=== PATIENT | male | born 1960 | race Caucasian/White ===

== ENCOUNTER → 2023-06-06 07:59 | Outpatient (REF) | payer BC, SELFPAY | LOC: HWRCS 07:59 | PROVIDERS: ATTENDING PHYSICIAN Family Medicine | DX: R01.1 Cardiac murmur, unspecified (principal) | CPT/HCPCS: 93306 ==

== ENCOUNTER 2023-06-18 05:51 | Day surgery (SDC) | payer BC, SELFPAY ==
[2023-06-18] VITALS (9 sets, daily range): BP systolic 104–156; BP diastolic 48–80; BMI 49.2
[2023-06-18 06:32] LABS: Glucose - Point of Care 133 mg/dl (70-99)
[2023-06-18] MEDS: NSS 440 ML IV (06:32)
[2023-06-18] MEDS: LOW STRENGTH ASPIRIN 81 MG PO (06:33)
[2023-06-18 06:35] LABS: Hematocrit 42.9 % (39.0-52.0); Hemoglobin 14.6 g/dL (13.0-18.0); Mean Corpuscular Hgb 31.4 pg (27.0-31.0); Mean Corpuscular Volume 92.3 fL (80.0-94.0); Mean Platelet Volume 9.7 fL (7.4-10.4); Platelet Count 227 10^3/uL (130-400); Red Blood Cell Count 4.65 10^6/uL (4.70-6.10); Red Cell Dist. Width 12.9 % (11.5-14.5); White Blood Cell Count 7.7 10^3/uL (4.8-10.8)
[2023-06-18 06:52] LABS: Blood Urea Nitrogen 12 mg/dl (9-20); Calcium 9.2 mg/dl (8.4-10.2); Glucose 139 mg/dl (70-99); Sodium 139 mmol/L (135-145)
[2023-06-18 07:02] LABS: Carbon Dioxide 25 mmol/L (22-30); Chloride 104 mmol/L (98-107); Estimated Creatinine Clearance > 125 ml/min; eGFR > 60.00
[2023-06-18] MEDS: NSS 1000 IV (09:36)
[2023-06-18 09:38] LABS: Glucose - Point of Care 161 mg/dl (70-99)
--- NOTE | 2023-06-18 10:05 | ITS.CL.CATH ---
Access Director - Catheterization
Cardiac Catheterization
Procedure Report:
LEFT HEART CATHETERIZATION
Date of Procedure: June 18, 2023
Referring: Dr. Micheala Abreu
PROCEDURES:
1. Right heart catheterization
2. Coronary angiography
INDICATION: Severe aortic stenosis with mean aortic valve gradient of 59 mmHg. He still goes to the gym and is active at home. He states since he has learned about the echocardiogram results that
ACCESS: Right radial artery, 6 [place] sheath in right brachial vein, 5 Indonesian sheath
HEMODYNAMICS : (mmHg)
RA (m) : 22
RV (s/d,m) : 53/16, 23
PA (s/d, m) : 46/25, 35
PCWP (m) : 32
AO (s/d) : 117/75, 95
Cardiac Output : 7.6 L/min and Cardiac Index : 3.0 L/min/m-2
Systemic vascular resistance: 9.6 Wood units or 768 [id number]-wtu-zu(-5)
Pulmonary vascular resistance: 0.4 Wood units or 32 tnxfm-lpm-gc(-5)
CORONARY FINDINGS
DOMINANCE: Right
LEFT MAIN: Normal
LEFT ANTERIOR DESCENDING: The LAD arises normally from the left main and runs in the anterior interventricular groove. The LAD wraps completely around the apex supplying a portion of the inferior wall. The LAD has diffuse minor luminal
irregularities without focal high-grade obstructive stenosis
RAMUS: Small caliber with minor irregularities
CIRCUMFLEX: The circumflex is a large-caliber nondominant vessel that supplies 2 sizable obtuse marginal branches. Minor irregularities are noted
RIGHT CORONARY ARTERY: The LAD has a high anterior origin from the aorta and is found to be a large-caliber dominant vessel with diffuse noncritical luminal irregularities over its course
RADIATION SUMMARY: Fluoro Time (min): 11.1, Dose (mGy): 1188, DAP (Gy.cm2) : 100
Closure Device: TR band
CONCLUSIONS
1. Severe aortic stenosis
2. Noncritical coronary disease
3. Mildly elevated right and left ventricular filling pressures
RECOMMENDATIONS
1. Patient will be discussed at an upcoming valve clinic meeting
Copy to: Dr. Michaela Abreu
--- NOTE | 2023-06-18 12:16 | CONSULT.STRU ---
Addendum entered and electronically signed by MELIDA Gonzalez 07/06/23 07:00:
Reviewed patient with the heart team in the [facility]. Dr. Stewart saw patient in consult 07/04, discussed surgical AVR including mechanical valve requiring lifelong management with warfarin. The patient is thinking about options including mechanical valve,
biological AVR, and TAVR. The team recommends biological valve for lifelong managment including valve in valve. Dr. Stewart will call and discuss with patient today.
Original Note:
Consultation
-
Date/Time Consultation Requested: 06/18/2023 1030
Date/Time Consultation Performed: 06/18/2023 1130
Requesting Provider: Dr. Ronald Broussard
Performing Provider: MELIDA Kim
Reason for Consultation: Aortic stenosis
Patient History
Physicians
Family Physician: Cielo Thomas
Outpatient Bed Placement Coordinator: Michaela Abreu
Primary Bed Placement Coordinator: Michaela Abreu
History of Present Illness
Patient is a very pleasant 63yo male with severe aortic stenosis. His echocardiogram on 06/06/2023 was notable for EF: 60-65%, AV PG/M/59, Peak aortic velocity 4.96m/s. No AI. He has noted some mild ESPINAL but still continues to exercise daily and
'adjusts his breathing'. He also has noted increased fatigue. Denies chest pain, palpitations, orthopnea, PND. He does have sleep apnea and is compliant with his CPAP. Reviewed the pathophysiology of aortic stenosis and the treatment options of both
TAVR and SAVR. At the age of 63yo life time planning for potential of a second valve procedure was explained. Mr. Saldivar states he is not opposed to SAVR and will follow the recommendations of the Heart Team. He is aware his case will be discussed at
the Heart Team Meeting on Sunday and he will receive a call with recommendations. Having a CT TAVR scan to assess access, valve size and coronary heights will help in surgical decision making so patient will proceed with follow up BMP on Sunday and
CT TAVR on Sunday, 06/24. Provided with contact information. Allowed for and answered questions.
Past Medical History
Past Medical History: ESPINAL, HTN, Hypercholesterolemia, NIDDM, HODAN (CPAP compliant), Valvular Disease and Other (Glaucoma, Vitamin D Deficiency)
Past Surgical History
Past Surgical History: Abdominal (Hernia Repair), Orthopedic (back injections), Tonsilectomy and Other (carpel tunnel release bilaterally)
Family History
Mother: at Age
Father: at Age (CAD, DM, Valve Disease)
Social History
Alcohol: Occasional
Drug: None
Tobacco: Non-Smoker
Personal:
Living: With Spouse
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
Allergies
Allergy/AdvReac Type Severity Reaction Status Date / Time
house dust Allergy runny nose Verified 06/18/23 06:13
pollen extracts Allergy runny nose Verified 06/18/23 06:13
Home Medications
Medication Instructions Recorded Confirmed Type
metformin 1,000 mg tablet 1,000 mg PO BID 05/23/13 06/18/23 History
subcutaneous insulin pump (Insulin 05/23/13 05/23/13 History
Pump [id number])
aspirin 81 mg capsule 81 mg PO DAILY 06/18/23 06/18/23 History
cetirizine 10 mg tablet (Zyrtec) 10 mg PO DAILY 06/18/23 06/18/23 History
cholecalciferol (vitamin D3) 125 125 mcg PO DAILY 06/18/23 06/18/23 History
mcg (5,000 unit) tablet (Vitamin
D3)
lisinopril 20 1 tab PO DAILY 06/18/23 06/18/23 History
mg-hydrochlorothiazide 12.5 mg
tablet
naproxen sodium 220 mg tablet 440 mg PO BID PRN pain 06/18/23 06/18/23 History
(Aleve)
netarsudil 0.02 %-latanoprost 1 drp ophthalmic (eye) QPM 06/18/23 06/18/23 History
0.005 % eye drops (Rocklatan)
omega 0-ioh-iew-fish oil 1,200 mg 2 cap PO QPM 06/18/23 06/18/23 History
(144 mg-216 mg) capsule (Fish Oil)
semaglutide 1 mg/dose (4 mg/3 mL) 1 mg SC QWEEK 06/18/23 06/18/23 History
subcutaneous pen injector (Ozempic)
simvastatin 20 mg tablet 20 mg PO DAILY 06/18/23 06/18/23 History
vitamin B complex 1 tab PO DAILY 06/18/23 06/18/23 History
STS%
STS %: 1.29%
Review of Systems
-
History Source: Patient
General: Reports Fatigue
HEENT: Reports No Symptoms
Respiratory: Reports ESPINAL and Other (Sleep apnea- wears CPAP)
Cardiac: Reports No Symptoms
Abdomen/GI: Reports No Symptoms
: Reports No Symptoms
Musculoskeletal: Reports No Symptoms
Skin: Reports No Symptoms
Neurological: Reports No Symptoms
Vascular: Reports No Symptoms
Physical Exam
Vital Signs
Temp 98.1 F 06/18/23 06:58
Temp route: Oral 06/18/23 06:58
Pulse 72 06/18/23 11:46
Resp Rate 28 06/18/23 11:46
Blood pressure 133/58 06/18/23 11:46
Blood pressure extremity used: Right upper arm 06/18/23 06:58
Position: Lying 06/18/23 06:58
MAP (cuff-Tata Monitor) 77 06/18/23 11:46
SaO2 95 06/18/23 11:46
Oxygen Mode of Delivery Room air 06/18/23 11:45
Can the patient verbally communicate their pain? Yes 06/18/23 11:45
Actual Weight 146.6 kg 06/18/23 06:11
Body Mass Index (BMI) 49.2 06/18/23 06:11
Labs
06/18/23 06:24
06/18/23 06:24
Diagnostic Studies
06/06/2023 Echocardiogram:
�CONCLUSIONS
�Normal left ventricular size and systolic function. Moderate concentric left
�ventricular hypertrophy.� LV ejection fraction is 60-65% by visual assessment.
�Normal regional wall motion. Diastolic function indeterminate.
�Normal right ventricular size and function.
�Calcified aortic valve with restricted leaflet excursion. Severe aortic
�stenosis with peak/mean gradients of 98/59 mmHg, respectively. The aortic valve
�by the Continuity equation is calculated between 0.9-1.0 cm sq, using a LVOT
�diameter of 2.2 cm. AV Dimensionless Index is 0.3. No aortic regurgitation is
�seen.
�Mild tricuspid regurgitation. Estimated pulmonary artery pressure of 37 mmHg
�assuming a right atrial pressure of 3 mmHg.
�No prior study available for comparison.
�As per [place] Act 112, known as Patient Test Result Information Act, a letter will
�be sent to the patient, which notifies to the patient that a significant
�abnormality may exist. A letter will be sent approximately 10 days after the
�echo report is finalized.
�
�Indications:
�Cardiac murmur, unspecified
�
�Rhythm: � � � � � � � � Sinus
�
�Portable Study: � � � � No
�
�Technical Quality:� � � TDS-Apicals
�
�Contrast: � � None
�
�BP:� � 140 � / � 70
�
�PROCEDURE
�A complete Transthoracic Echocardiogram was performed utilizing two-dimensional
�evaluation with color flow and spectral Doppler analysis.
�
�FINDINGS
�
�Left Ventricle
�Normal left ventricular size and systolic function. Moderate concentric left
�ventricular hypertrophy.� LV ejection fraction is 60-65% by visual assessment.
�Normal regional wall motion. Diastolic function indeterminate.
�
�Right Ventricle
�Normal right ventricular size and function.
�
�Left Atrium
�Indexed LA volume is within top normal range (15-34 mL/m2).
�
�Right Atrium
�Normal right atrial size.
�
�Mitral Valve
�Mitral valve opens normally. Thickened mitral valve leaflets. Trace mitral
�regurgitation.
�
�Aortic Valve
�Calcified aortic valve with restricted leaflet excursion. Severe aortic
�stenosis with peak/mean gradients of 98/59 mmHg, respectively. The aortic valve
�by the Continuity equation is calculated between 0.9-1.0 cm sq, using a LVOT
�diameter of 2.2 cm. AV Dimensionless Index is 0.3. No aortic regurgitation is
�seen.
�
�Tricuspid Valve
�Tricuspid valve opens normally. Mild tricuspid regurgitation. Estimated
�pulmonary artery pressure of 37 mmHg assuming a right atrial pressure of 3
�mmHg.
�
�Pulmonic Valve
�Not well visualized. No pulmonic regurgitation� is seen.
�
�Pericardium\\Pleura
�No pericardial or pleural effusions seen.
�
�Aorta
�Normal size aortic root and normal size aorta. The aortic arch is normal in
�caliber.
�
�Other Finding
�The IVC is of normal size and demonstrates normal respiratory variation.
�Interatrial septum is intact with no evidence of shunting by color flow
�Doppler.
�
�MEASUREMENTS� (Male / Female) Normal Values
�2D ECHO
�LV Diastolic Diameter PLAX� � � � 5.3 cm� � � � � � � � 4.2 - 5.9 / 3.9 - 5.3 cm
�LV Systolic Diameter PLAX � � � � 3.1 cm� � � � � � � �
�IVS Diastolic Thickness � � � � � 1.3 cm� � � � � � � � 0.6 - 1.0 / 0.6 - 0.9 cm
�LVPW Diastolic Thickness� � � � � 1.3 cm� � � � � � � � 0.6 - 1.0 / 0.6 - 0.9 cm
�LV Relative Wall Thickness� � � � 0.5 � � � � � � � � �
�LVOT Diameter � � � � � � � � � � 2.2 cm� � � � � � � �
�LV Ejection Fraction MOD BP � � � 63.1 %� � � � � � � � >= 55� %
�LV Stroke Volume MOD BP � � � � � 77.0 cm3� � � � � � �
�LV Cardiac Index MOD BP � � � � � 2195.8 cm3/min
�LV Stroke Volume MOD 4C � � � � � 70.0 cm3� � � � � � �
�LV Stroke Volume 4C AL� � � � � � 69.2 cm3� � � � � � �
�LV Stroke Volume MOD 2C � � � � � 71.0 cm3� � � � � � �
�LV Stroke Volume 2C AL� � � � � � 72.4 cm3� � � � � � �
�LA Area 4C View � � � � � � � � � 25.7 cm2� � � � � � � <= 20 cm2
�LA Length 4C� � � � � � � � � � � 6.3 cm� � � � � � � �
�LA Volume � � � � � � � � � � � � 85.0 cm3� � � � � � � 18 - 58 / 22 - 52 cm3
�LA Volume Index � � � � � � � � � 32.1 cm3/m2 � � � � � 16 - 34 cm3/m2
�Ascending Aorta Diameter� � � � � 3.4 cm� � � � � � � �
�Aortic Arch Diameter� � � � � � � 3.0 cm� � � � � � � �
�
�DOPPLER
�AV Peak Velocity� � � � � � � � � 433.0 cm/s� � � � � �
�AV Peak Gradient� � � � � � � � � 75.0 mmHg � � � � � �
�AV Mean Gradient� � � � � � � � � 43.0 mmHg � � � � � �
�AV Velocity Time Integral � � � � 88.4 cm � � � � � � �
�LVOT Peak Velocity� � � � � � � � 134.0 cm/s� � � � � �
�LVOT Peak Gradient� � � � � � � � 7.2 mmHg� � � � � � �
�LVOT Velocity Time Integral � � � 28.6 cm � � � � � � �
�LVOT Stroke Volume� � � � � � � � 108.7 cm3 � � � � � �
�LVOT Stroke Volume Index� � � � � 39.7 ml/m2� � � � � � empty
�LVOT Cardiac Index� � � � � � � � 3100.3 cm3/min\\m2 � �
�AV Area Cont Eq vti � � � � � � � 1.2 cm2 � � � � � � �
�AV Area Cont Eq pk� � � � � � � � 1.2 cm2 � � � � � � �
�Mitral E Point Velocity � � � � � 87.9 cm/s � � � � � �
�Mitral A Point Velocity � � � � � 120.0 cm/s� � � � � �
�Mitral E to A Ratio � � � � � � � 0.7 � � � � � � � � �
�LV E' Lateral Velocity� � � � � � 7.5 cm/s� � � � � � �
�Mitral E to LV E' Lateral Ratio � 11.7� � � � � � � � �
�LV E' Septal Velocity � � � � � � 7.9 cm/s� � � � � � �
�Mitral E to LV E' Septal Ratio� � 11.1� � � � � � � � �
�Pulmonary Vein S/D Ratio� � � � � 1.6 � � � � � � � � �
�TR Peak Velocity� � � � � � � � � 273.0 cm/s� � � � � �
�TR Peak Gradient� � � � � � � � � 29.8 mmHg � � � � � �
�PV Peak Velocity� � � � � � � � � 133.0 cm/s� � � � � �
�PV Peak Gradient� � � � � � � � � 7.1 mmHg� � � � � � �
�
�
�
�06/18/2023 Cardiac Catheterizations:
ACCESS: Right radial artery, 6 [place] sheath in right brachial vein, 5 [place] sheath
HEMODYNAMICS : (mmHg)
RA (m) : 22
RV (s/d,m) : 53/16, 23
PA (s/d, m) : 46/25, 35
PCWP (m) : 32
AO (s/d) : 117/75, 95
Cardiac Output : 7.6 L/min and Cardiac Index : 3.0 L/min/m-2
Systemic vascular resistance: 9.6 Wood units or 768 [id number]-htf-na(-5)
Pulmonary vascular resistance: 0.4 Wood units or 32 tjldk-vpi-us(-5)
CORONARY FINDINGS
DOMINANCE: Right
LEFT MAIN: Normal
LEFT ANTERIOR DESCENDING: The LAD arises normally from the left main and runs in the anterior interventricular groove.� The LAD wraps completely around the apex supplying a portion of the inferior wall.� The LAD has diffuse minor luminal
irregularities without focal high-grade obstructive stenosis
RAMUS: Small caliber with minor irregularities
CIRCUMFLEX: The circumflex is a large-caliber nondominant vessel that supplies 2 sizable obtuse marginal branches.� Minor irregularities are noted
RIGHT CORONARY ARTERY: The LAD has a high anterior origin from the aorta and is found to be a large-caliber dominant vessel with diffuse noncritical luminal irregularities over its course
RADIATION SUMMARY:� Fluoro Time (min): 11.1, Dose (mGy): 1188, DAP (Gy.cm2) : 100
Closure Device: TR band
CONCLUSIONS
1.� Severe aortic stenosis
2.� Noncritical coronary disease
3.� Mildly elevated right and left ventricular filling pressures
RECOMMENDATIONS
1.� Patient will be discussed at an upcoming valve clinic meeting
Exam
General: Well Developed, Well Nourished and No Apparent Distress
HEENT: Normocephalic
Neck: Trachea Midline
Respiratory: Clear
Cardiac: S1/S2, Regular Rhythm and Murmur (Grade III/)
GI: Soft, Non Tender and Normal Bowel Sounds
Rectal: Deferred by Provider
Skin: Warm and Dry
Neuro: AO x 3 and No Motor Deficits
Extremities: Pulses (+ 2DP/PT pulses)
Psych: Calm
Assessment / Plan
-
Severe symptomatic aortic stenosis:
- Follow up BMP on 06/22/2023
- Review case with Heart Team at [facility] meeting on 06/21
- Will need dental clearance prior to TAVR/SAVR
- CT TAVR 06/25/2023
- CT surgery consult with Dr. Stewart 07/05/2023
Data Reviewed
-
EKG: Report Reviewed by me (SR, no conduction issues)
Sales Enablement Analyst: Discussed with Physician
Echo: Report Reviewed by me
Labs: Labs Reviewed by me
Total Time Spent with Patient (in minutes): 40
== END 2023-06-18 12:10 | disposition home or self-care (01) ==
LOC: CATH 05:51
PROVIDERS: ATTENDING PHYSICIAN Internal Medicine Interventional Cardiology; FAMILY PHYSICIAN Family Medicine
DX: I35.0 Nonrheumatic aortic (valve) stenosis (principal); I25.10 Atherosclerotic heart disease of native coronary artery without angina pectoris; R06.09 Other forms of dyspnea; I10 Essential (primary) hypertension; E78.00 Pure hypercholesterolemia, unspecified; E11.9 Type 2 diabetes mellitus without complications; G47.33 Obstructive sleep apnea (adult) (pediatric)
CPT/HCPCS: 80048; 82962; 85027; 93456; C1769; C1894; Q9967

== ENCOUNTER → 2023-06-22 08:18 | Outpatient (REF) | payer BC, SELFPAY ==
[2023-06-22 09:41] LABS: Blood Urea Nitrogen 16 mg/dl (9-20); Calcium 9.9 mg/dl (8.4-10.2); Carbon Dioxide 28 mmol/L (22-30); Chloride 104 mmol/L (98-107); Glucose 158 mg/dl (70-99); Potassium 4.2 mmol/L (3.5-5.1); Sodium 137 mmol/L (135-145); eGFR > 60.00
== END ==
LOC: REG 08:18
PROVIDERS: ATTENDING PHYSICIAN Nurse Practitioner Adult Health
DX: I35.0 Nonrheumatic aortic (valve) stenosis (principal)
CPT/HCPCS: 36415; 80048

== ENCOUNTER → 2023-06-25 11:28 | Outpatient (REF) | payer BC, SELFPAY | LOC: RAD 11:28 | PROVIDERS: ATTENDING PHYSICIAN Nurse Practitioner Adult Health; FAMILY PHYSICIAN Family Medicine | DX: I35.0 Nonrheumatic aortic (valve) stenosis (principal) | CPT/HCPCS: 74174; 75572; Q9967 ==

== ENCOUNTER 2023-08-06 08:23 | Inpatient (IN) | payer BC, MEDICARE, SELFPAY ==
[2023-07-13 11:55] VITALS: BMI 48.9
[2023-07-13 12:46] LABS: % Basophils 0.5 % (0-2); % Eosinophils 1.5 % (0-6); % Immature Granulocytes 0.6 % (0-0.5); % Lymphocytes 28.2 % (20.5-51.1); % Monocytes 7.7 % (1.7-9.3); % Neutrophils 61.5 % (42.2-75.2); Absolute Eosinophils 0.1 10^3/uL (0-0.7); Absolute Lymphocytes 1.9 10^3/uL (1.2-3.4); Absolute Monocytes 0.5 10^3/uL (0.1-0.6); Absolute Neutrophils 4.1 10^3/uL (1.4-6.5); Hematocrit 42.5 % (39.0-52.0); Hemoglobin 14.1 g/dL (13.0-18.0); Mean Corp Hgb Conc. 33.2 g/dL (33.0-37.0); Mean Corpuscular Hgb 31.1 pg (27.0-31.0); Mean Corpuscular Volume 93.8 fL (80.0-94.0); Mean Platelet Volume 9.9 fL (7.4-10.4); Nucleated Red Blood Cells % 0 % (-); Platelet Count 208 10^3/uL (130-400); Red Blood Cell Count 4.53 10^6/uL (4.70-6.10); Red Cell Dist. Width 13.1 % (11.5-14.5); White Blood Cell Count 6.6 10^3/uL (4.8-10.8)
[2023-07-13 12:47] LABS: Urine Albumin Trace (Neg - Trace); Urine Bilirubin Negative (Negative); Urine Character Clear (Clear); Urine Color Yellow; Urine Glucose Trace (Negative); Urine Ketone Trace (Negative); Urine Leukocyte Negative (Negative); Urine Nitrite Negative (Negative); Urine Occult Blood Negative (Negative); Urine Urobilinogen Negative (Neg - 1+)
[2023-07-13 13:00] LABS: APTT 30.1 Sec (23.4-35.0); INR 1.04; PT 13.4 Sec (11.4-14.6)
[2023-07-13 13:09] LABS: ALT (SGPT) 34 U/L (0-50); AST (SGOT) 30 U/L (17-59); Albumin 4.3 g/dl (3.5-5.0); Alkaline Phosphatase 74 U/L (38-126); Blood Urea Nitrogen 15 mg/dl (9-20); Calcium 9.7 mg/dl (8.4-10.2); Carbon Dioxide 26 mmol/L (22-30); Chloride 104 mmol/L (98-107); Estimated Creatinine Clearance > 125 ml/min; Glucose 180 mg/dl (70-99); Potassium 4.3 mmol/L (3.5-5.1); Sodium 139 mmol/L (135-145); Total Bilirubin 0.5 mg/dl (0.2-1.3); Total Protein 7.1 g/dl (6.3-8.2); eGFR > 60.00
[2023-07-13 13:38] LABS: Glycohemoglobin (HgbA1c) 7.5 % (4.0-5.6)
--- NOTE | 2023-07-13 14:32 | CM ---
Met with Mr. Saldivar in [facility]'s. He states prior to admission he resides with his spouse in a two story home with two steps to enter. He states he has a full flight of steps to get to bedroom. He states he has a full bathroom on each level. He states
prior to admission he was independent with ambulation and adls. He states he has a CPAP Machine at home and no other DME. He states he has a prescription plan. The discharge plan is to return home with his spouse and a home visit by the
Cardiothoracic Transitional Care Nurse when medically stable.
We reviewed pre-op and post-op routines. We reviewed the shower instructions. He has the soap, instructions and the Cardiothoracic Thoracic Surgery Educational Booklet. We also reviewed restrictions including sternal precautions and driving
restrictions. We discussed a home visit by the Cardiothoracic Transitional Care Nurse. He is agreeable to a home visit. The plan is for AVR on Monday, July 31, 2023.
[2023-07-13 14:35] LABS: Direct Bilirubin 0.1 mg/dl (0.0-0.4)
[2023-08-06] VITALS (10 sets, daily range): BP systolic 98–168; BP diastolic 47–77; BMI 46.8
--- NOTE | 2023-08-06 09:21 | PTCARENOTE ---
Received pt into 2260, pt AAOX3 and resting comfortably in bed; pt confirmed 2 showers at home; pt clipped and prepped; pt NPO since 209908/05/2023; heart pillow and IS education provided; all medications reviewed with pt; all questions answered and
at bedside.
--- NOTE | 2023-08-06 09:31 | CM ---
Reviewed chart. Mr. Saldivar is in the operating room today. Prior to admission he resides with his spouse in a two story home with two steps to enter. He has a full flight of steps to get to bedroom. He has a full bathroom on each level. Prior to
admission he was independent with ambulation and adls. He has a CPAP Machine at home and no other DME. He has a prescription plan. Medical work-up in progress. The discharge plan is to return home with his spouse and a home visit by the
Cardiothoracic Transitional Care Nurse when medically stable.
--- NOTE | 2023-08-06 09:50 | PN.DE.MGMTRT ---
Insulin Management
- -
08/06/2023: Diabetes Management Consult
63 year old male admitted for elective AVR. PMH includes: T2DM, Routinely sees [facility]- sees Rishi, was last seen 2 weeks ago. Was Using Insulin pump T-Slim with CGM Dexcom G7, NovoLog insulin, Metformin 1000mg
BID, and Victoza that was recently switched to Ozempic 0.25mg weekly but had not started taking it yet. Pt seen in CVICU with - Lynette at bedside.
Pt is Awake, A/O x3, sitting up in chair, pleasant and able to discuss diabetes plan of care.
Pt reports that His insulin pump was discontinued upon admission this morning. Explained to pt policy and procedure for pts using insulin pumps at home when they get admitted to the hospital.
Pt was made aware that he will be managed on the glycemic protocol postoperatively x48 hrs and that his pump will be resumed when he is stable enough to manage it independently. Pt has brought all pump supplies and his pump is in his possession. All
questions were answered.
Diabetes History
- -
Type of Diabetes: 2 requiring insulin
Pre-Admission Diabetes Regimen
Lab Results
Hemoglobin A1c 7.5 % (4.0-5.6) H 07/13/23 12:07
Insulin Pump Settings
IP Diabetes Regimen
Patient Education
--- NOTE | 2023-08-06 11:54 | W.CVOR.SURPR ---
CVOR Surgeon Immed Pre Op
-
I have examined this patient prior to performance of the scheduled procedure.
The patient's condition is unchanged from the time of the dictated/written History and
Physical and the patient is able to undergo the scheduled procedure.
After much discussion, and also his own research, shared decision making is to pursue a mechanical prosthesis. For his age category, it is reasonable to use either a biological or mechanical valve, I think his choice is resonable giving him the best
EOA and longevity. He understands he will need lifelong coumadin therapy.
His CHADsVasc score is also 3, so I will plan to manage his left atrial appendage at time of surgery.
[2023-08-06] MEDS: PROTONIX 40 MG PO (12:14)
[2023-08-06] MEDS: MAGNESIUM OXIDE 500 MG PO (12:14)
[2023-08-06] MEDS: LOPRESSOR 25 MG PO (12:14)
[2023-08-06] MEDS: BACTROBAN 2% OINTMENT 1 APPLIC NASAL ×2 (12:15→20:31)
--- NOTE | 2023-08-06 12:23 | PTCARENOTE ---
Pt sent to CVOR in bed.
[2023-08-06 13:33] LABS: ACT+ - POC 101 Seconds (82-134)
[2023-08-06 13:35] LABS: Glucose - POC 192 mg/dl (65-99); HCO3 - POC 22 mmol/L (21-29); Hematocrit - POC 40 % PCV (42-52); Hemodilution- POC No; Hemoglobin Calculated - POC 13.6; Ionized Calcium - POC 1.19 mmol/L (1.12-1.27); O2 Saturation %Calculated-POC 98.4 5 (92-96); PCO2 - POC 42 mmHg (35-45); PO2 - POC 120 mmHg (80-100); Potassium - POC 4.1 mmol/L (3.6-5.0); Sodium - POC 140 mmol/L (135-145); pH - POC 7.33 (7.35-7.45)
[2023-08-06 14:06] LABS: Urine Albumin Negative (Neg - Trace); Urine Bilirubin Negative (Negative); Urine Character Clear (Clear); Urine Color Yellow; Urine Glucose Negative (Negative); Urine Ketone 3+ (Negative); Urine Leukocyte Negative (Negative); Urine Nitrite Negative (Negative); Urine Occult Blood Negative (Negative); Urine Urobilinogen Negative (Neg - 1+)
[2023-08-06 14:15] LABS: ACT+ - POC 546 Seconds (82-134)
[2023-08-06 14:34] LABS: ACT+ - POC 530 Seconds (82-134)
[2023-08-06 14:39] LABS: B.E. - POC -1.1 mmol/L; Glucose - POC 202 mg/dl (65-99); HCO3 - POC 24 mmol/L (21-29); Hematocrit - POC 31 % PCV (42-52); Hemodilution- POC Yes; Hemoglobin Calculated - POC 10.6; Ionized Calcium - POC 1.04 mmol/L (1.12-1.27); O2 Saturation %Calculated-POC 99.7 5 (92-96); PCO2 - POC 42 mmHg (35-45); PO2 - POC 201 mmHg (80-100); Potassium - POC 4.6 mmol/L (3.6-5.0); Sodium - POC 137 mmol/L (135-145); pH - POC 7.37 (7.35-7.45)
[2023-08-06 15:04] LABS: B.E. - POC -2.1 mmol/L; Glucose - POC 237 mg/dl (65-99); HCO3 - POC 24 mmol/L (21-29); Hematocrit - POC 38 % PCV (42-52); Hemodilution- POC Yes; Hemoglobin Calculated - POC 12.8; Ionized Calcium - POC 1.11 mmol/L (1.12-1.27); O2 Saturation %Calculated-POC 98.9 5 (92-96); PCO2 - POC 48 mmHg (35-45); PO2 - POC 142 mmHg (80-100); Potassium - POC 5.1 mmol/L (3.6-5.0); Sodium - POC 138 mmol/L (135-145); pH - POC 7.32 (7.35-7.45)
[2023-08-06 15:07] LABS: ACT+ - POC 486 Seconds (82-134)
[2023-08-06 15:43] LABS: ACT+ - POC 87 Seconds (82-134)
[2023-08-06 15:47] LABS: B.E. - POC -6.1 mmol/L; Glucose - POC 193 mg/dl (65-99); HCO3 - POC 20 mmol/L (21-29); Hematocrit - POC 35 % PCV (42-52); Hemodilution- POC Yes; Hemoglobin Calculated - POC 11.7; Ionized Calcium - POC 1.24 mmol/L (1.12-1.27); PCO2 - POC 42 mmHg (35-45); PO2 - POC 148 mmHg (80-100); Potassium - POC 4.3 mmol/L (3.6-5.0); Sodium - POC 140 mmol/L (135-145); pH - POC 7.29 (7.35-7.45)
--- NOTE | 2023-08-06 16:43 | CON.INTV ---
Consultation
Consultation Request
Date/Time Consultation Requested: 08/06/2023 - 1552
Date/Time Consultation Performed: 08/06/2023 - 1640
Requesting Provider: Mariann MONTEZ
Performing Provider: Reji Frausto MD
Reason for Consultation: s/p AVR
Medical History
-
Chief Complaint: Elective aortic valve replacement
History of Present Illness:
63-year-old male with a past medical history of sleep apnea on CPAP, allergic rhinitis, DM type II, hypertension and hyperlipidemia who presents for aortic valve placement. Patient has a history of severe aortic valve stenosis and is known to "Graciela"Pat with last office visit on 07/05/2023. Patient is active and performs ADLs with no difficulty. He underwent a left heart catheterization on 06/18/2023 showing mildly elevated filling pressures with a wedge of 32 mmHg. Prior transthoracic echo
performed in May 2023 yielded a peak/mean gradient of 98/59 mmHg, respectively. KATHERINE was calculated to be just around 1.04. LVEF was preserved at 65% with moderate concentric LVH. Discussion of TAVR versus SAVR took place and patient was
consented for both procedures. Patient now presents for surgical aortic valve replacement. Today he underwent standard sternotomy with surgical aortic valve replacement with FLACA ligation with a 35 mm clip. Patient underwent procedure with no
immediate complications and was transferred to the CVICU postoperatively for further care. Crabber service is now consulted for additional management/recommendations.
When I saw the patient he was in bed, in no acute distress, on mechanical ventilation on mode SIMV 16/600/100%/8, breathing at 18 breaths/min, PIP 28 cmH2O and VTe of 546 mL. BP via left radial A-line was 124/64, HR: 69, PAP: 45/28, SpO2 97%.
CO/CI: 4.66/1.86. He is on an insulin drip at 6 units/h, as well as Levophed at 2mcg/min and Precedex at 0.6mcg/kg/hr. He has mediastinal chest tubes x 2.
PMHx: Vitamin D deficiency, hyperlipidemia, DM type II, hypertension, allergic rhinitis, ED, sleep apnea on CPAP, carpal tunnel, glaucoma, heart murmur, and severe aortic valve stenosis
PSHx: Hernia repair, tonsillectomy, spinal surgery
Past Medical History
Past Medical History: Other (Above as per HPI)
Past Surgical History: Other (Above as per HPI)
Social History
Tobacco: Non-smoker
Alcohol: Occasional
Drug: None
Family History
Family History: Diabetes (Father) and Other (Father: Valvular heart disease; mother: Alzheimer's disease)
Allergies / Home Medications
Allergies
Allergy/AdvReac Type Severity Reaction Status Date / Time
house dust Allergy runny nose Verified 07/11/23 10:01
pollen extracts Allergy runny nose Verified 07/11/23 10:01
Home Medications
�Medication �Instructions �Recorded �Confirmed �Last Taken �Type
metformin 1,000 mg tablet 1,000 mg PO BID 05/23/13 08/06/23 08/05/23 17:00 History
subcutaneous insulin pump (Insulin 05/23/13 07/11/23 Unknown History
Pump [id number])
aspirin 81 mg capsule 81 mg PO DAILY 06/18/23 08/06/23 08/05/23 08:00 History
cetirizine 10 mg tablet (Zyrtec) 10 mg PO DAILY 06/18/23 08/06/23 08/05/23 08:00 History
cholecalciferol (vitamin D3) 125 125 mcg PO DAILY 06/18/23 08/06/23 08/03/23 08:00 History
mcg (5,000 unit) tablet (Vitamin
D3)
lisinopril 20 1 tab PO DAILY 06/18/23 08/06/23 08/03/23 08:00 History
mg-hydrochlorothiazide 12.5 mg
tablet
naproxen sodium 220 mg tablet 440 mg PO BID PRN pain 06/18/23 08/06/23 06/17/23 18:00 History
(Aleve)
netarsudil 0.02 %-latanoprost 1 drp BOTH EYES QPM 06/18/23 08/06/23 08/05/23 20:00 History
0.005 % eye drops (Rocklatan)
omega 1-fil-eov-fish oil 1,200 mg 2 cap PO BID 06/18/23 08/06/23 07/30/23 08:00 History
(144 mg-216 mg) capsule (Fish Oil)
semaglutide 1 mg/dose (4 mg/3 mL) 1 mg SC QWEEK 06/18/23 08/06/23 Unknown History
subcutaneous pen injector (Ozempic)
simvastatin 20 mg tablet 20 mg PO DAILY 06/18/23 08/06/23 07/30/23 08:00 History
vitamin B complex 1 tab PO DAILY 06/18/23 08/06/23 08/03/23 08:00 History
insulin aspart U-100 100 unit/mL 200 unit SC DIRECTED 07/11/23 08/06/23 Unknown History
subcutaneous cartridge
Review of Systems
-
Unable to Obtain full review of systems at this time due to: Patient Intubation
Vitals / Labs / Diagnostic Testing
Vital Signs
Temp Pulse Resp BP Pulse Ox
99.5 F 69 14 159/72 99
08/06/23 16:57 08/06/23 16:50 08/06/23 16:54 08/06/23 12:14 08/06/23 17:55
Lab Data
08/06/23 16:51
Laboratory Results
08/06/23 08/06/23
16:51 17:40
PT 16.2 H
INR 1.32
APTT 29.1
pH 7.30 L 7.33 L
pCO2 49 H 44
pO2 76 L 131 H
HCO3 24.1 23.2
O2 Delivery Level
Diagnostic Testing:
Physical Exam
-
HEENT: Normocephalic and Anicteric
Cardiovascular: S1/S2 and Peripheral Edema (negative)
Respiratory: Wheeze (n), Rales (n), Rhonchi (n) and Other (ETT in place; mechanical BS heard bilaterally)
GI: Soft, Non Distended and Non Tender
Neurology: Other (Unresponsive/sedated)
Skin: Warm and Dry
General: Respiratory Distress (n), Comfortable and Chills (n)
Assessment
-
Assessment: 63-year-old male with a past medical history of sleep apnea on CPAP, allergic rhinitis, DM type II, hypertension and hyperlipidemia who presents for aortic valve placement. Patient has a history of severe aortic valve stenosis and is
known to Dr. Stewart with last office visit on 07/05/2023. Patient is active and performs ADLs with no difficulty. He underwent a left heart catheterization on 06/18/2023 showing mildly elevated filling pressures with a wedge of 32 mmHg. Prior
transthoracic echo performed in May 2023 yielded a peak/mean gradient of 98/59 mmHg, respectively. KATHERINE was calculated to be just around 1.04. LVEF was preserved at 65% with moderate concentric LVH. Discussion of TAVR versus SAVR took place
and patient was consented for both procedures. Patient now presents for surgical aortic valve replacement. On 08/06/2023 he underwent standard sternotomy with surgical aortic valve replacement with FLACA ligation with a 35 mm clip. Patient underwent
procedure with no immediate complications and was transferred to the CVICU postoperatively for further care. Crabber service is now consulted for additional management/recommendations.
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
Impression:
#Severe aortic stenosis s/p surgical aortic valve replacement (POD #0)
#Anemia (mild)
#Hyperglycemia
#Morbid obesity
Plan:
Ventilator settings reviewed
FiO2 will be weaned
Maintain SpO2 >90-94%
Minute ventilation will be adjusted
Arterial blood gases will be monitored
Spontaneous breathing trial will be attempted with hopeful extubation after anesthesia/sedation wear off
prn nebulized bronchodilators
Pulmonary artery catheter parameters will be followed
Pressors/antihypertensive/inotropes/diuretics will be provided as needed
Maintain MAP>65
Monitor chest tube output (mediastinal chest tube X2)
Monitor hemoglobin
Monitor platelet count and coags
Transfuse blood product if needed
CT surgery managing chest tubes
Monitor blood sugar with goal BG 140-180mg/dL
Insulin drip per protocol
Replete electrolytes with K>4, Mg>2
Aspiration precautions
VAP prevention protocol
DVT prophylaxis
Early nutrition
Early mobilization
Critical care statement: A total of 44 minutes of critical care time was provided for this patient today. This includes management of ventilator, spontaneous breathing trial, arterial blood gases, pressors, of unstable vital signs, evaluation of the
patient at bedside, reviewing the patient's pertinent medical records including radiographs, microbiology, laboratory evaluations, and discussion with primary team and critical care nursing.
Data:
CXR 08-06-2023: Postoperative chest.
--- NOTE | 2023-08-06 16:51 | W.PN.CT.SURG ---
CT Surgery Operative Note
-
CARDIAC SURGERY OPERATIVE REPORT
Preoperative Diagnosis: Severe aortic valve stenosis with symptoms
Postoperative Diagnosis: Same
Procedure(s) Performed:
1. Standard sternotomy with aortic and right atrial cannulation
2. Surgical aortic valve replacement [25 mm mechanical prosthesis]
3. Left atrial appendage ligation with a 35 mm clip
4. Placement of temporary atrial ventricular pacing wires
5. Transesophageal echocardiography
6. Rigid sternal fixation
Date of Surgery: 08/06/2023
Comorbidities:
1. Severe aortic valve stenosis with symptoms
2. Functional bicuspid valve with diffuse left right cusp
3. Diabetes mellitus, type II
4. Hypertension
5. Morbidly obese with a BMI of greater than 45
6. HODAN
7. Hyperlipidemia
8. Glaucoma
Attending Surgeon: Charles Stewart MD, MS
Assistants: Charles Stokes PA-C (present and necessary to assistant account manager, retraction, suction, exposure, suture management, and wound closure under my direction)
Anesthesiology: Jose Rafael Moreira MD and Steven Oro CRNA
Scrub and Circulating RNs: Amanda Blankenship, KAROLINA, Romana Mullins RN
Boat Puller: Renato Osorio CCP
Anesthesia: GETA
EBL: per perfusion records
Products: None
CPB Time: 66 minutes
Aortic Cross Clamp Time: 50 minutes
Indication(s) for Procedures: This is a 63-year-old male with critical levels of aortic valve stenosis. His mean gradients were in the high 50s. Given his young age and critical levels of stenosis, surgical aortic valve intervention was discussed
with the patient. Through much deliberation and his own personal research and shared decision making, he opted for mechanical prosthesis which was reasonable.
Aortic Valve Description: Trileaflet valve with functional bicuspid fusion of the left right coronary cusp, heavily calcified into the annulus without extension down into the aorta mitral curtain. Left and right coronary ostia within normal
anatomic positions although the right was slightly displaced towards the right non commissure.
Findings: Left ventricular ejection fraction preoperatively was 65%. Following surgery he had no new regional wall motion abnormalities and EF was hyperdynamic at 70% with mild to moderate left ventricular hypertrophy. There was evidence of
diastolic dysfunction given the hypertrophic cardio myopathy. His aortic valve was heavily calcified mostly on the base of the leaflet extending down towards the annulus without extension onto the aorto mitral curtain. The valve was replaced with
a 25 mm mechanical prosthesis using a total of 15 nonpledgeted 2 Ethibond sutures secured into place with core knots. There was no paravalvular leak, there was inherent washing jets that is normal with this table prosthesis. Both mechanical
leaflets were moving normally as expected. He did not require any inotropic support and did not require any blood products. He was intermittent junctional and sinus bradycardia did require DDI pacing. Due to his size and diabetic status, plates
were also used to fixate his sternum.
Specimen(s): Aortic valve leaflets.
Prosthesis:
1. 25 mm ON-X [facility] AVR, SN [id number]
2. 35mm FLACA Clip
3. 3 x box plates with 12 x 16mm screws
Description of Procedure: The patient was taken to the operating room. Their identity and procedure to be performed were verified and they were positioned supine on the operating table. Induction via general anesthesia with endotracheal intubation
was performed and central venous access and arterial monitoring were inserted. A preoperative transesophageal echocardiogram was performed to assess cardiac function and valvular function. The patient was then prepped and draped from chin to feet in
a sterile fashion. A preoperative time-out was performed with all members of the team present. A midline chest incision was performed along with median sternotomy. The innominate vein was isolated. Full heparinization was given (a total of 60,000
units). We created a pericardial well. The aortic cannulation site was chosen where it was soft, pliable, and free of calcium. Cannulation was performed with an arterial cannula in the ascending aorta and a triple-stage venous cannula through the
right atrial appendage. The arterial cannula line had an appropriate bounce and correlating pressures with test dosing. Next, a root vent/antegrade cannula was inserted into the ascending aorta. The ACT was confirmed to be over 400 and retrograde
autologous priming was performed before commencing cardiopulmonary bypass. The pulmonary artery was away from the aorta to facilitate a clamp site and aortotomy. A left ventricular vent was placed at the right superior pulmonary vein and
secured. The aortic cross-clamp was placed after decreasing the flow on the bypass and mean arterial pressure. A total of 1.2L initial dose of antegrade Del-Nido cardioplegia solution was given and planned for re-dosing every 75 minutes as
necessary. There was rapid electro-mechanical arrest of the heart at 200 cc of cardioplegia. The left ventricle was observed for distention on echocardiogram and manual palpation. Cold slush was placed into a sponge and topically on the RV while we
systemically cooled to 34 degrees centigrade.
Carbon dioxide was used to flood the field. We manually identified the location of the right coronary take off. An aortotomy was made approximately 2cm above the sinotubular junction. The location of both left and right coronary vessels were
visualized in the root.The leaflets were excised and sent for pathological assessment. The annulus was debrided of any calcium being mindful of the annulus and membranous septum. The root and left ventricular outflow tract were thoroughly irrigated
to remove any debris. A total of 15 Non-pledgeted 2-0 ethibond inverted annular sutures were placed [id number] circumferentially. These were brought through the sewing cuff of the prosthetic valve which as then parachuted into place. The left and
right coronary ostia were visualized and were unobstructed by the valve. A Cor-Knot device was used to secure the annular sutures. The valve was inspected and was well seated. The leaflets were tested with a plastic poker found to be freely mobile.
The aortotomy was approximated with 4-0 prolene in two layers. De-airing maneuvers were performed and temporary bipolar ventricular pacing wires were placed on the base of the right ventricle along with atrial pacing wires at the SVC right atrial
junction. The patient was placed in a Trendelenburg position and flows on bypass were lowered. The aortic cross clamp was removed and flows were slowly brought back up. The aortotomy appeared hemostatic. Transesophageal echocardiography revealed no
paravalvular leak and appropriate prosthetic function. Once de-airing was satisfactory, the left ventricular and root vents were removed. After verifying acceptable parameters, we initiated weaning from cardiopulmonary bypass. Once we were off
cardiopulmonary bypass, the venous cannula was clamped and removed. A test dose of protamine was administered and the patient was monitored for any adverse reaction before resuming protamine. Once half of the protamine dose was delivered, pump
suckers were turned off and the systolic blood pressure was lowered for aortic decannulation. The aortic cannula was removed and pursestrings were tied down. All cannulation sites were oversewn with a 4-0 prolene. The aortotomy suture line was
inspected and hemostasis was confirmed. Mediastinal hemostasis was obtained. Two 24Fr Federico drains were placed within the pericardium. The sternum was approximated with 4 #7 single and 3 #8 double stainless steel wires. 3 box plates were selected
after clearing off the periosteal muscle and fascia. These were secured at the manubrium, sternal body and down towards the xiphoid with 12 x 16 mm screws. Fascia was approximated with #1 vicryl suture. The subcutaneous, dermis and epidermis were
closed in layers in a running fashion. The skin wound was cleansed and dressed.
All instrument, sponge, and needle counts were confirmed to be correct x 2 at the end of the operation. The patient was transferred to the cardiac intensive care unit in critical but stable condition.
I, Dr. Charles Stewart, was present, scrubbed for, and performed all critical elements of this procedure.
Charles Stewart MD, MS
Cardiothoracic Surgeon
[facility]
This operative dictation was created using the [employer] dictation system. Please excuse any grammatical, typographical, or 'sound alike' errors
[2023-08-06 16:56] LABS: Glucose - Point of Care 226 mg/dl (70-99)
--- NOTE | 2023-08-06 16:59 | PTCARENOTE ---
Received pt from [facility]; Pt intubated and sedated; NSR on monitor and VSS: Epicardial a/v wires set to DDI 50/11/12 and no pacing noted; RIJ Cordis, [place] floated to 45, Left A-line and PIV x1 all patent, all lines leveled and zeroed; Levo, Insulin and
Precedex infusing see flow sheet for details; lungs diminished; Vent Settings SIMV 600/14/100%/5/5; ET Tube size 8 and 23 @lip; CT x2 to -20 wall suction no air leak and no crepitus noted; hypoactive bowel sounds; Toney Catheter draining clear
yellow urine; palpable pulses throughout; no edema noted; surgical site C/D/I; see nursing documentation for further details.
CI 1.86
CO 4.66
SVT 858
Levo 2 mcg/min
Precedex 0.6 mcg/kg/hr
Insulin 6 units/hr
[2023-08-06 17:00] LABS: B.E. -2.7 mmol/L; HCO3 24.1 mmol/L (21-28); Ionized Calcium 1.27 mMOL/L (1.15-1.33); O2 Saturation % 95.9 % (94-98); PCO2 49 mmHg (35-48); PO2 76 mmHg (83-108); Potassium 4.6 mMOL/L (3.5-5.1); Sodium 137 mMOL/L (136-145)
[2023-08-06 17:01] LABS: Hematocrit 37.3 % (39.0-52.0); Hemoglobin 12.7 g/dL (13.0-18.0); Platelet Count 190 10^3/uL (130-400)
[2023-08-06 17:11] LABS: INR 1.32; PT 16.2 Sec (11.4-14.6)
[2023-08-06 17:12] LABS: APTT 29.1 Sec (23.4-35.0)
[2023-08-06 17:15] LABS: Blood Urea Nitrogen 16 mg/dl (9-20); Estimated Creatinine Clearance 95 ml/min; Glucose 233 mg/dl (70-99); Magnesium 2.8 mg/dl (1.6-2.3)
--- NOTE | 2023-08-06 17:16 | W.PN.UPDATE ---
Update Note
Progress Note Update
63-year-old male electively admitted on 08/06/2023 for aortic valve replacement due to severe aortic stenosis.
IV fluids: 1000
U.O.:� 180
UF:� 1800
Blood:� none
Wires:� 2 atrial/1 bipolar V-wire
Inotropes:�
Pressors:�
Sedatives:�
�
NEURO: sedated on XXX, pupils +Xmm B/L
RESP: #8OT @XXcm> 600/100%/14/5. Lungs clear B/L. 2 mediastinal (XXcc on arrival) and R/L pleural (XXcc on arrival) chest tubes to -20cm suction. Sanguineous drainage
CV: RRR +S1, S2, no S3, no�rub, no murmur. Dermabond to median sternotomy. RIJ w/[place] locked @ XXcm. PA XX; CVP XX; C.O XX/CI XX
ABD: round, soft, no BS
EXT: no edema, +2/4 DP pulses B/L, no femoral bruit, XXLE ALLISON wrap intact; XX radial A-line intact
: Toney with clear yellow urine
�
A/P: POD #0 s/p AVR #25mm On-X, FLACA #35mm clip. Rigid sternal fixation
CEASAR: EF�
- wean and extubate
- will need instruction regarding antibiotic prophylaxis for dental and invasive procedures
- will require anticoagulation with Coumadin long-term
�
# HODAN
- required GLIDESCOPE for intubation
- own CPAP @ 14cm H2O for nocturnal use
�
# T2DM (A1C 7.5)
- insulin infusion x 48h
- diabetes CHILD CARE COUNSELOR will guide resumption of own insulin pump
- on MFM, Ozempic, Lisinopril-HCTZ at home
# Morbid obesity (BMI 46.8)
- calorie, carb controlled diet
- resume Ozempic per diabetes CHILD CARE COUNSELOR guidance
�
# Hyperlipidemia
- resume�
[2023-08-06] MEDS: TYLENOL PO ×2 (17:19→21:56)
[2023-08-06] MEDS: ANCEF 10 IV ×2 (17:19)
[2023-08-06] MEDS: NSS 500 IV (17:19)
[2023-08-06] MEDS: NOVOLOG FLEXPEN SC ×2 (17:19)
[2023-08-06] MEDS: NEURONTIN PO ×2 (17:20→21:59)
[2023-08-06 17:54] LABS: B.E. -2.8 mmol/L; HCO3 23.2 mmol/L (21-28); O2 Saturation % 98.2 % (94-98); PCO2 44 mmHg (35-48); PO2 131 mmHg (83-108); pH 7.33 (7.35-7.45)
[2023-08-06 18:09] LABS: Glucose - Point of Care 258 mg/dl (70-99)
[2023-08-06] MEDS: VERSED 0.5 MG IV (18:25)
[2023-08-06 18:41] LABS: B.E. -3.5 mmol/L; HCO3 22.1 mmol/L (21-28); O2 Saturation % 98.1 % (94-98); PCO2 41 mmHg (35-48); PO2 122 mmHg (83-108); pH 7.34 (7.35-7.45)
[2023-08-06 19:01] LABS: Glucose - Point of Care 202 mg/dl (70-99)
[2023-08-06 19:23] LABS: B.E. -3.1 mmol/L; O2 Saturation % 97.4 % (94-98); PCO2 39 mmHg (35-48); PO2 93 mmHg (83-108); pH 7.36 (7.35-7.45)
[2023-08-06 19:46] LABS: Mixed Venous O2 Saturation 62.9 %
--- NOTE | 2023-08-06 19:50 | PTCARENOTE ---
Pt placed to CPAP wean by RT. Pt tolerating. VSS.
--- NOTE | 2023-08-06 20:00 | PTCARENOTE ---
Pt received from john RN. Walking rounds completed. Pt intubated and sedated. Precedex infusing per protocol. Pt awaking to voice, following commands appropriately, and DEUTSCH. 100% V-paced on the monitor. HR 70. Temporary epicardial A/V wires set
to VVI 70/9/0.8. +click. PA's 40s/20s. CVP 20. BP 110's/60s. Levo infusing per protocol. + pulses throughout. No edema. ETT #8 @23 cm on the right lip. Pt set to SIMV 600/18/40%/8/5. Lung sounds diminished. Mediastinal CTx2 to -20 suction, no
airleak/tidaling/crepitus noted at this time. POX 98%. Abdomen round. Hypoactive BS. Toney catheter CDI and draining clear/yellow urine. Right IJ cordis w/ swan CDI. Right hand PIV CDI. Left radial a-line CDI. All lines leveled, zeroed, and flushed.
All surgical sites stable. Glycemic protocol followed. See worklist for full nursing assessment, VS, and interventions.
[2023-08-06] MEDS: SODIUM BICARBONATE 50 MEQ IV (20:01)
[2023-08-06 20:14] LABS: Glucose - Point of Care 175 mg/dl (70-99)
[2023-08-06] MEDS: SENOKOT-S PO (20:30)
[2023-08-06 20:40] LABS: B.E. 0 mmol/L; HCO3 24.8 mmol/L (21-28); Ionized Calcium 1.27 mMOL/L (1.15-1.33); O2 Saturation % 97.2 % (94-98); PCO2 40 mmHg (35-48); PO2 89 mmHg (83-108); Potassium 4.5 mMOL/L (3.5-5.1)
[2023-08-06 20:42] LABS: Hematocrit 39.5 % (39.0-52.0); Hemoglobin 13.5 g/dL (13.0-18.0); Platelet Count 232 10^3/uL (130-400)
--- NOTE | 2023-08-06 21:00 | PTCARENOTE ---
ABG drawn and sent. Per CTPA - okay to extubate. Pt extubated at 2054 by RT. Pt placed on 6 L NC. POX 95%. IS 1000.
[2023-08-06 21:18] LABS: Glucose - Point of Care 194 mg/dl (70-99)
[2023-08-06] MEDS: ZOFRAN 4 MG IV (21:18)
[2023-08-06] MEDS: OFIRMEV 100 IV (21:18)
[2023-08-06] MEDS: ANCEF 5 IV (21:58)
[2023-08-06 22:02] LABS: Glucose - Point of Care 157 mg/dl (70-99)
[2023-08-06 23:17] LABS: Glucose - Point of Care 157 mg/dl (70-99)
[2023-08-06] MEDS: DILAUDID 0.25 MG IV (23:54)
[2023-08-07] VITALS (35 sets, daily range): BP systolic 81–194; BP diastolic 48–72; PULSE 73; O2SAT 93–96; BMI 47.5
--- NOTE | 2023-08-07 00:15 | PTCARENOTE ---
Pt reassessed. Pt currently 100% v-paced on the monitor. Temporary epicardial wires set to VVI 70/9/0.8. BP 120s/50s. Levo infusing per protocol. PA's 20-30s/teens. CVP 10-15. CI: 2.09 / CO: 5.24. Pt using home CPAP machine. POX 92-94%. CT
assessment unchanged from previous. Toney catheter CDI. Glycemic protocol followed. All surgical sites stable. All lines leveled, zeroed, and flushed. Pt c/o pain - see MAR. Call talamantes within reach.
[2023-08-07 00:57] LABS: Glucose - Point of Care 166 mg/dl (70-99)
[2023-08-07] MEDS: NOVOLIN R INSULIN INFUSION 100 IV ×2 (01:00→14:19)
[2023-08-07] MEDS: ROXICODONE 5 MG PO ×3 (02:15→19:40)
[2023-08-07 03:13] LABS: Glucose - Point of Care 159 mg/dl (70-99)
[2023-08-07 03:23] LABS: Hematocrit 37.3 % (39.0-52.0); Hemoglobin 12.9 g/dL (13.0-18.0); Mean Corp Hgb Conc. 34.6 g/dL (33.0-37.0); Mean Corpuscular Hgb 31.6 pg (27.0-31.0); Mean Corpuscular Volume 91.4 fL (80.0-94.0); Mean Platelet Volume 9.7 fL (7.4-10.4); Platelet Count 223 10^3/uL (130-400); Red Blood Cell Count 4.08 10^6/uL (4.70-6.10); Red Cell Dist. Width 13.1 % (11.5-14.5); White Blood Cell Count 17.3 10^3/uL (4.8-10.8)
[2023-08-07 04:00] LABS: Blood Urea Nitrogen 24 mg/dl (9-20); Calcium 9.6 mg/dl (8.4-10.2); Carbon Dioxide 24 mmol/L (22-30); Chloride 108 mmol/L (98-107); Estimated Creatinine Clearance 95 ml/min; Glucose 156 mg/dl (70-99); Magnesium 2.6 mg/dl (1.6-2.3); Potassium 4.4 mmol/L (3.5-5.1); Sodium 139 mmol/L (135-145); eGFR > 60.00
[2023-08-07 04:32] LABS: Glucose - Point of Care 131 mg/dl (70-99)
--- NOTE | 2023-08-07 04:35 | ECGCV ---
<Megan Fermin> notified of ECG critical value identified by electronic interpretation on ECG completed on <08/07/23>, at <0421>.
--- NOTE | 2023-08-07 04:36 | PTCARENOTE ---
Pt reassessed. Pt NSR w/ 1st degree. No pacing at this time. HR 60s. BP up/down. Levo infusing per protocol. Pt using home CPAP machine. POX 92-96%. CT assessment unchanged. All surgical sites stable. Glycemic protocol followed. [place] and a-line
maintained. Toney catheter CDI. Labs drawn and sent. EKG obtained w/ PA at the bedside. Call talamantes within reach.
[2023-08-07 05:34] LABS: Glucose - Point of Care 156 mg/dl (70-99)
--- NOTE | 2023-08-07 06:00 | PTCARENOTE ---
CTPA at bedside and stopped levo / initiated cardene. Pacemaker setting adjusted by CTPA - see worklist. Pt tolerating. VSS.
--- NOTE | 2023-08-07 06:00 | PTCARENOTE ---
Dawna anguiano'd per order. Pt due to void @1200.
[2023-08-07 06:10] LABS: Glucose - Point of Care 126 mg/dl (70-99)
--- NOTE | 2023-08-07 06:21 | W.PN.CT ---
Today's Communication / Plan
-
-pod #1
-no significant issues overnight, extubated uneventfully at 8:55 pm
-c/o L hand numbness - warm, 2+ radial pulse, moves and feels all fingers, good cap. refill, reassured pt- follow
-rhythm appeared NSR with Mobitz 1 - was bentley with hypotension - improved with pacing VVI @70
-CI 2.16, CO 5.41. Drips: Insulin only
-CT output: 2 meds 145/180 in 12/24 hrs
-BB and Amio held d/t bradycardia
-Mg held (elevated)- follow
-continue insulin drip
-Toney dcd
-current meds (ASA, Lipitor, Protonix, Neurontin, Lidocaine patch)
-tentative plan is to start Coumadin on pod 1 and iv Heparin on pod 2
-encourage IS (1250 after extubation), OOB
Assessment / Plan
-
- Bicuspid AV with severe symptomatic - s/p 25 mm ON-X [facility] AVR; FLACA ligation with a [address] Stewart on 08/06/23, pod #1
- LVEF preop was 65%. Following surgery, no new regional wall motion abnormalities and EF was hyperdynamic at 70% with mild to moderate left ventricular hypertrophy. There was evidence of diastolic dysfunction given the hypertrophic cardio
myopathy. There was no paravalvular leak, there was inherent washing jets that is normal with this table prosthesis. Both mechanical leaflets were moving normally as expected.
- intraop intermittent junctional and sinus bradycardia, did require DDI pacing.
- Diabetes mellitus, type II (HgA1c 7.5)
- Hypertension
- Class 3 obesity with a BMI of greater than 45
- HODAN, on CPAP
- Hyperlipidemia
- Glaucoma
- Vit D deficiency
- Seasonal allergy
- ED
- L carpal tunnel repair
- Multiple eye surgeries
- Non-smoker
- Acute postop blood loss anemia - stable, no transfusion
- Acute postop atelectasis
- Acute postop hypovolemia with subsequent hypervolemia
- Acute postop bradycardia with hypotension, required pacing- held BB and Amio
- Acute postop 1st degree AVB, intermittent Mobitz 1
Discussed patient care with: Nursing and Care Team
Subjective
Procedure
- s/p 25 mm ON-X [facility] AVR; FLACA ligation with a [address] Stewart on 08/06/23
-
Date of Service: August 06, 2023
Objective Data
-
Lab Results
08/06/23 20:35
08/06/23 16:51
PT 16.2 Sec (11.4-14.6) H 08/06/23 16:51
INR 1.32 08/06/23 16:51
APTT 29.1 Sec (23.4-35.0) 08/06/23 16:51
Vital Signs
Vital Signs
Temp Pulse Resp BP Pulse Ox
99.1 F 69 19 141/64 93
08/06/23 23:00 08/06/23 23:10 08/06/23 23:10 08/06/23 23:00 08/06/23 23:10
CT Intake/Output/Weight
08/06/23 08/06/23 08/07/23
06:59 18:59 06:59
Intake Total 110.0 / 333.0 223.0 / 333.0
Output Total 285 / 755 470 / 755
Balance -175.0 / -422.0 -247.0 / -422.0
SaO2: 93
Physical Exam
-
General: Awake and AOx3
Cardiovascular: Regular rate & rhythm, No Murmurs and Rub
Respiratory: Decreased Breath Sounds
Sternum: Stable
Incision: Clean, Dry and Intact
Extremities: No Edema (1+ DP b/l, warm b/l. C/o numbness of L hand)
Abdomen: soft, nondistended, nontender, decreased bowel sounds
Data Reviewed
-
Lab Results: Results Reviewed
Medications: Active Meds Reviewed
Chest X-Ray: Report Reviewed and Image Reviewed
ECG: Report Reviewed and Image Reviewed
[2023-08-07] MEDS: ANCEF 5 IV ×2 (06:27→14:20)
[2023-08-07] MEDS: TYLENOL 1000 MG PO ×3 (06:27→21:05)
[2023-08-07 07:03] LABS: Glucose - Point of Care 135 mg/dl (70-99)
--- NOTE | 2023-08-07 07:28 | W.PN.ANS.POP ---
Anesthesia Post Operative
- Anesthesia Post Op Note
Vital Signs Stable-See Nursing Note: Yes
Airway Patent: Yes
Adequate Pain Control: Yes
Change in Mental Status: No
Current Postoperative Nausea & Vomiting: No
Anesthesia Complications: No
General Anesthetic Recall: No
Unplanned Admission: No
Post Op Hydration Adequate: Yes
--- NOTE | 2023-08-07 07:30 | PTCARENOTE ---
Received pt from mini shifter RN; pt AAOx3 and resting comfortably in bed; 100% V-paced on monitor and VSS; Epicardial A/V wires set to DDD 50/9/0.8; RIMartínez Jimenez floated to 45, Left A-line and PIV x1 all lines leveled and zeroed; Insulin
infusing per Glycemic protocol see flow sheet for details; Lungs diminished; IS to 1000; CT x2 to -20 wall suction no air leak and no crepitus noted; hypoactive bowel sounds; Toney catheter removed by mini shifter RN pt due to void by 1200; palpable
pulses throughout; no edema noted; surgical site C/D/I; see nursing documentation for further details.
[2023-08-07] MEDS: PROTONIX 40 MG PO (07:36)
[2023-08-07] MEDS: SENOKOT-S 1 TABLET PO ×2 (07:37→19:40)
[2023-08-07] MEDS: LOW STRENGTH ASPIRIN 81 MG PO (07:37)
[2023-08-07] MEDS: NEURONTIN 100 MG PO ×3 (07:37→21:05)
[2023-08-07] MEDS: LIPITOR 10 MG PO (07:37)
[2023-08-07] MEDS: BACTROBAN 2% OINTMENT 1 APPLIC NASAL ×2 (07:37→19:40)
[2023-08-07] MEDS: LIDOCAINE 4% PATCH 1 PATCH TOPICAL (07:37)
[2023-08-07] MEDS: NOVOLOG FLEXPEN SC (07:38)
[2023-08-07 07:48] LABS: Glucose - Point of Care 156 mg/dl (70-99)
--- NOTE | 2023-08-07 08:20 | PTCARENOTE ---
Left A-line and Gruetli Laager removed per CV RAILROAD CONSTRUCTION DIRECTOR order; pt OOB x2 to chair.
--- NOTE | 2023-08-07 08:26 | PN.DE.MGMTRT ---
Insulin Management
- -
08/07/2023: Diabetes Management ConsultFollow up
Patient admitted for elective AVR. PMH includes T2DM, Routinely sees [facility]- sees Rishi, was last seen 2 weeks ago. Has Medtronic pump, warranty expires end of July currently researching new pump options. Uses
CGM Dexcom G7, NovoLog insulin, Metformin 1000mg BID, and Victoza that was recently switched to Ozempic 0.25mg weekly but had not started taking it yet.
Patient is awake alert and oriented, oob in chair. Able to discuss diabetes care plan.
POD 1 s/p AVR with FLACA ligation. Currently on glycemic protocol requiring 5 to 8 units of insulin per hour. Glucose range 157 to 194. Will continue glycemic protocol and assess for readiness to transition to pump tomorrow.
Pump and supplies are here.
Diabetes History
- -
Type of Diabetes: 2 requiring insulin
Pre-Admission Diabetes Regimen
08/06/23 08/07/23
16:51 03:12
Creatinine 1.1 1.1
Lab Results
Hemoglobin A1c 7.5 % (4.0-5.6) H 07/13/23 12:07
Insulin Pump Settings
IP Diabetes Regimen
08/06/23 08/06/23 08/06/23
16:51 16:52 18:07
Glucose 233 H
POC Glucose 226 H 258 H
08/06/23 08/06/23 08/06/23
18:59 20:12 21:16
Glucose
POC Glucose 202 H 175 H 194 H
08/06/23 08/06/23 08/07/23
22:01 23:15 00:56
Glucose
POC Glucose 157 H 157 H 166 H
08/07/23 08/07/23 08/07/23
03:11 03:12 04:31
Glucose 156 H
POC Glucose 159 H 131 H
08/07/23 08/07/23 08/07/23
05:32 06:08 07:02
Glucose
POC Glucose 156 H 126 H 135 H
08/07/23
07:46
Glucose
POC Glucose 156 H
Patient Education
[2023-08-07 09:12] LABS: Glucose - Point of Care 176 mg/dl (70-99)
[2023-08-07 10:08] LABS: Glucose - Point of Care 142 mg/dl (70-99)
--- NOTE | 2023-08-07 10:09 | W.PN.CARDCBS ---
Documented by User: Karely Lu PA-C 08/07/23 11:15
Today's Communication / Plan
-
Continue postoperative care
Follow rhythm on telemetry. Pacing at this time. Amio/beta-rachele on hold
Coumadin to start tonight. Follow INR
Impression / Plan
-
Primary Medical Lab Tech Instructor: Dr. Abreu
Assessment:
Bicuspid aortic valve with severe symptomatic status post mechanical AVR, FLACA ligation with clip 08/06/2023
Postop Wenckebach
Postop anemia
Type 2 diabetes
Hypertension
Hyperlipidemia
Obesity
HODAN on CPAP
Vitamin D deficiency
Multiple prior eye surgeries
ECHO 06/06/23: EF 60 to 65%, severe aortic stenosis with peak/mean gradients 98/59 mmHg, KATHERINE 0.9 to 1.0 cm�, no AR, mild TR, PAP 37 mmHg
IntraOp CEASAR 08/06/2023: Severe , moderate LVH, mild left atrial enlargement, mild TR, very small PFO with intermittent [id number]-[id number] shunt. Postoperatively valve well-seated with leaflets functioning well, mean gradient of 8 mmHg with no evidence
of paravalvular leak, left atrial appendage clip well-seated with no flow seen through FLACA remnant. EF remained preserved
Plan:
-Patient's status post mechanical AVR and left atrial appendage clip with ligation 08/06/2023
-With minimal pain
-Remains 100% a sensed V paced at this time. Underlying rhythm this morning was Wenckebach. By review of telemetry no evidence of high-grade AV block noted, follow closely. Amiodarone and beta-rachele on hold
-For dose of Coumadin today. INR 1.32 on 08/06.
-Prior to admission was on lisinopril/HCTZ combo pill
-Continue out of bed/IS as able
-Continue postop care
-Discussed with nursing
-Discussed with CT surgical DRILLER BRAKE [employer]ING
Progress Note - Medical Lab Tech Instructor
Subjective
Date of Service: August 07, 2023
Feeling well. Without complaints
Objective
Labs:
08/07/23 03:12
08/07/23 03:12
Labs
Hgb 12.9 g/dL (13.0-18.0) L 08/07/23 03:12
Hct 37.3 % (39.0-52.0) L 08/07/23 03:12
Plt Count 223 10^3/uL (130-400) 08/07/23 03:12
PT 16.2 Sec (11.4-14.6) H 08/06/23 16:51
INR 1.32 08/06/23 16:51
APTT 29.1 Sec (23.4-35.0) 08/06/23 16:51
Sodium 139 mmol/L (135-145) 08/07/23 03:12
Potassium 4.4 mmol/L (3.5-5.1) 08/07/23 03:12
BUN 24 mg/dl (9-20) H 08/07/23 03:12
Creatinine 1.1 mg/dL (0.7-1.3) 08/07/23 03:12
Glucose 156 mg/dl (70-99) H 08/07/23 03:12
Vital Signs and I&O:
Vital Signs
Temp Pulse Resp BP Pulse Ox
98.6 F 70 20 143/64 92
08/07/23 08:00 08/07/23 10:00 08/07/23 10:04 08/07/23 10:00 08/07/23 10:04
Vital Signs
Temp Pulse Resp BP Pulse Ox
98.6 F 70 20 143/64 92
08/07/23 08:00 08/07/23 10:00 08/07/23 10:04 08/07/23 10:00 08/07/23 10:04
Intake & Output
08/05/23 08/06/23 08/07/23 08/08/23
07:59 07:59 07:59 07:59
Intake Total 609.3 / 635.3 44 / 44
Output Total 1250 / 1290 155 / 155
Balance -640.7 / -654.7 -111 / -111
Physical Exam
Physical Exam
GEN: No distress, awake, alert, oriented x3. Obese. Sitting in chair. On supplemental O2
HEENT: supple, anicteric, mmm, EOMI
LUNGS: CTA B/L, no wheezes/rales
CV: Reg, S1/S2, no murmur
ABD: soft, BS+, ND
EXT: No cyanosis, clubbing. 1+ edema of bilateral lower extremity
NEURO: Gross non-focal
SKIN: Warm, pink, dry. No rash

Documented by User: Don Gibson MD 08/07/23 15:38
Impression / Plan
-
Addendum added by Dr. Don Gibson:
Patient seen and examined
Agree with CLARE Lu's notes and assessment
agree with CLARE Lu's plan
exam:
noted underlying rhythm this am underlying bradycardia and mobitz 1 type 2 AV block and now paced POD#1
cor regular
tubes noted
cordis noted
abd soft nt nd
no ext edema
aao x3
non focal neurologically
Assessment:
Bicuspid aortic valve with severe symptomatic status post mechanical AVR, FLACA ligation with clip 08/06/2023
Postop Wenckebach
Postop anemia
Type 2 diabetes
Hypertension
Hyperlipidemia
Obesity
HODAN on CPAP
Vitamin D deficiency
Multiple prior eye surgeries
ECHO 06/06/23: EF 60 to 65%, severe aortic stenosis with peak/mean gradients 98/59 mmHg, KATHERINE 0.9 to 1.0 cm�, no AR, mild TR, PAP 37 mmHg
IntraOp CEASAR 08/06/2023: Severe , moderate LVH, mild left atrial enlargement, mild TR, very small PFO with intermittent tqpj-nv-[id number] shunt. Postoperatively valve well-seated with leaflets functioning well, mean gradient of 8 mmHg with no evidence
of paravalvular leak, left atrial appendage clip well-seated with no flow seen through FLACA remnant. EF remained preserved
Plan:
-Patient's status post mechanical AVR and left atrial appendage clip with ligation 08/06/2023
-With minimal pain
-Remains 100% a sensed V paced at this time. Underlying rhythm this morning was Wenckebach. Follow closely. Amiodarone and beta-rachele on hold. I would suspect edema related as this is POD#1 and would maintain epicardial wires another 24-48hrs.
Ultimately defer to surgery on timing of pulling epicardials. I had a discussion in broad strokes about pacing with patient and but I suspect and hope he will recover conduction in next 24-48 hrs. No objection to doing a device on warfarin
ultimately if needed.
-For dose of Coumadin today. INR 1.32 on 08/06.
-Prior to admission was on lisinopril/HCTZ combo pill
-Continue out of bed/IS as able
-Continue postop care
-Discussed with nursing
-Discussed with CT surgical DRILLER BRAKE LINING
Primary Medical Lab Tech Instructor: Dr. Abreu
Assessment:
Bicuspid aortic valve with severe symptomatic status post mechanical AVR, FLACA ligation with clip 08/06/2023
Postop Wenckebach
Postop anemia
Type 2 diabetes
Hypertension
Hyperlipidemia
Obesity
HODAN on CPAP
Vitamin D deficiency
Multiple prior eye surgeries
ECHO 06/06/23: EF 60 to 65%, severe aortic stenosis with peak/mean gradients 98/59 mmHg, KATHERINE 0.9 to 1.0 cm�, no AR, mild TR, PAP 37 mmHg
IntraOp CEASAR 08/06/2023: Severe , moderate LVH, mild left atrial enlargement, mild TR, very small PFO with intermittent efmn-xw-tgnxv shunt. Postoperatively valve well-seated with leaflets functioning well, mean gradient of 8 mmHg with no evidence
of paravalvular leak, left atrial appendage clip well-seated with no flow seen through FLACA remnant. EF remained preserved
Plan:
-Patient's status post mechanical AVR and left atrial appendage clip with ligation 08/06/2023
-With minimal pain
-Remains 100% a sensed V paced at this time. Underlying rhythm this morning was Wenckebach. By review of telemetry no evidence of high-grade AV block noted, follow closely. Amiodarone and beta-rachele on hold
-For dose of Coumadin today. INR 1.32 on 08/06.
-Prior to admission was on lisinopril/HCTZ combo pill
-Continue out of bed/IS as able
-Continue postop care
-Discussed with nursing
-Discussed with CT surgical DRILLER BRAKE LINING
--- NOTE | 2023-08-07 10:27 | CM ---
Reviewed chart. Met with Mr. Saldivar to review discharge plans. He states he is feeling great. He states he ambulated in the hallway today. He states he is planning on staying on the first level of his home. He states he raised up his sofa to make
it easier to get up. He states he has a full bathroom on the first floor. He states his spouse will be home at night but will be working outside the home. He states he has a lot of friends he can call to provide assistance if needed. He has a CPAP
Machine at home and no other DME. He has a prescription plan. We reviewed a home visit by the Cardiothoracic Transitional Care Nurse. He is agreeable to a home visit. Medical work-up in progress. The discharge plan is to return home with his
spouse, friends support and a home visit by the Cardiothoracic Transitional Care Nurse when medically stable.
--- NOTE | 2023-08-07 10:50 | W.PN.INTV ---
Today's Communication / Plan
Recommendations
Up OOB as tolerated
CPAP with sleep
Continue insulin drip and wean off as tolerated
Continue CVICU level care while patient remains on insulin infusion. [employer]/pulmonary service will follow along while patient remains CVICU status.
Assessment
-
Assessment: 63-year-old male with a past medical history of sleep apnea on CPAP, allergic rhinitis, DM type II, hypertension and hyperlipidemia who presents for aortic valve placement. Patient has a history of severe aortic valve stenosis and is
known to Dr. Stewart with last office visit on 07/05/2023. Patient is active and performs ADLs with no difficulty. He underwent a left heart catheterization on 06/18/2023 showing mildly elevated filling pressures with a wedge of 32 mmHg. Prior
transthoracic echo performed in May 2023 yielded a peak/mean gradient of 98/59 mmHg, respectively. KATHERINE was calculated to be just around 1.04. LVEF was preserved at 65% with moderate concentric LVH. Discussion of TAVR versus SAVR took place
and patient was consented for both procedures. Patient now presents for surgical aortic valve replacement. On 08/06/2023 he underwent standard sternotomy with surgical aortic valve replacement with FLACA ligation with a 35 mm clip. Patient underwent
procedure with no immediate complications and was transferred to the CVICU postoperatively for further care. [employer] service is now consulted for additional management/recommendations.
Chronic conditions MAP PLOTTER: Vitamin D deficiency, hyperlipidemia, DM type II, hypertension, allergic rhinitis, ED, sleep apnea on CPAP, carpal tunnel, glaucoma, heart murmur, and severe aortic valve stenosis
Impression:
#Severe aortic stenosis s/p surgical aortic valve replacement (POD #1)
#Anemia (mild)
#Hyperglycemia - resolved
#Morbid obesity
Plan:
Tolerated extubation
Titrate O2 flow rate to maintain SpO2 >90-94%
Encourage incentive spirometry
Increase activity
Aspiration precautions
prn nebulized bronchodilators
Continue CPAP with sleep
Pulmonary artery catheter and arterial line will be removed
Pressors have been weaned
Continue to monitor chest tube output (mediastinal chest tube x2)
Follow hemoglobin
Continue to follow platelet count and coags
Transfuse blood products as needed
CT surgery managing chest tubes as well
Monitor blood sugar with goal BG 140-180mg/dL
Insulin drip per protocol
Replete electrolytes with K>4, Mg>2
Early nutrition
Early mobilization
DVT prophylaxis
Continue CVICU level care while patient remains on insulin infusion. [employer]/pulmonary service will follow along while patient remains CVICU status.
I personally reviewed the patient's pertinent medical records including radiographs, microbiology, laboratory evaluations, and discussion with primary team, and critical care nursing.
Critical care statement: A total of 40 minutes of critical care time was provided for this patient today. This includes management of unstable vital signs, evaluation of the patient at bedside, reviewing the patient's pertinent medical records
including radiographs, microbiology, laboratory evaluations, and discussion with primary team, consultants, pharmacy, nutrition, physical therapy, case management, charge nurse, critical care nursing, and respiratory therapy.
Data:
CXR 08-07-2023: Interval removal of endotracheal tube; Low lung volumes with no findings to confirm pneumothorax.
CXR 08-06-2023: Postoperative chest.
Subjective Dataa
Subjective Data
Date of Service:
Date of Service: August 07, 2023
Chief Complaint: [employer] Follow Up
Subjective:
Patient seen today. Remains on supplemental oxygen at 5 L/min saturating 96%. He is breathing comfortably. Patient wore his CPAP overnight at 5cmH2O. Current BP 146/62, heart rate 74. He is on an insulin drip at 7 units an hour. Mediastinal
chest tubes x [address] He feels well currently. No acute events reported from overnight. He is pulling approximately 1 L on incentive spirometer.
Review of Systems
General: Other (Negative unless mentioned above)
Objective Data
Data Reviewed
Vital Signs / I&O / Oxygen:
Vital Signs
Temp Pulse Resp BP Pulse Ox
98.1 F 68 20 132/59 93
08/07/23 13:08 08/07/23 18:00 08/07/23 16:11 08/07/23 18:00 08/07/23 17:50
Intake and Output
08/06/23 08/07/23 08/08/23
06:59 06:59 06:59
Intake Total 584.3 / 609.3 229 / 229
Output Total 1220 / 1250 535 / 535
Balance -635.7 / -640.7 -306 / -306
SaO2 [CPAP/PSV] 96
SaO2 [SIMV] 98
SaO2 93
Nasal Cannula flow liters per 5
minute
Physical Exam
General: Respiratory Distress (negative) and Comfortable
HEENT: Normocephalic and Anicteric
Cardiovascular: S1-S2 and Peripheral Edema (negative)
Respiratory: Clear, Wheeze (negative), Crackles (negative), Rhonchi (negative) and Non-Labored Respirations
GI: Soft, Non Tender, Normal Bowel Sounds and Other (Abdominal obesity)
Neurology: AO x 3
Skin: Warm and Dry
Labs/Micro/Reports
Lab Data
08/07/23 03:12
08/07/23 03:12
Laboratory Results
08/06/23 08/06/23 08/06/23
18:36 19:17 20:35
pH 7.34 L 7.36 7.40
pCO2 41 39 40
pO2 122 H 93 89
HCO3 22.1 22.0 24.8
O2 Delivery Level
[2023-08-07 11:59] LABS: Glucose - Point of Care 143 mg/dl (70-99)
[2023-08-07 13:04] LABS: Glucose - Point of Care 133 mg/dl (70-99)
[2023-08-07] MEDS: NOVOLOG FLEXPEN 8 UNITS SC ×2 (13:04→18:26)
[2023-08-07 14:23] LABS: Glucose - Point of Care 105 mg/dl (70-99)
--- NOTE | 2023-08-07 14:26 | PTCARENOTE ---
Assessment unchanged; 100% V-paced on monitor and VSS; pt resting in bed.
[2023-08-07 15:05] LABS: Glucose - Point of Care 118 mg/dl (70-99)
[2023-08-07 16:11] LABS: Glucose - Point of Care 105 mg/dl (70-99)
[2023-08-07] MEDS: NSS IV (16:36)
[2023-08-07] MEDS: COUMADIN 7.5 MG PO (17:37)
[2023-08-07 18:05] LABS: Glucose - Point of Care 99 mg/dl (70-99)
[2023-08-07] MEDS: NON-FORMULARY ITEM 2 DROP BOTH EYES (19:41)
[2023-08-07] MEDS: NON-FORMULARY ITEM BOTH EYES (19:42)
--- NOTE | 2023-08-07 20:00 | PTCARENOTE ---
assumed care of pt from previous RN. pt A&Ox4, resting in chair at time of assessment. pt 100% v-paced. temp epicardial a/v wires. palpable peripheral pulses. trace edema noted in b/l hands. POX 93-95% on 5 L NC. CTx2 (mediastinal) to -20cm wall
suction, draining serosanguineous drainage. no air leaks noted. abd s/n, round, obese. +BS. pt voiding clear, yellow urine in urinal. sternal incision approximated w/ surgi-glue, YULIA. R iIJ cordis w/ KVO. PIV intact. insulin infusing per glycemic
protocol. pt assisted back to bed by 2 RNs. see worklist for complete nursing assessment, interventions, VS, and I&Os.
[2023-08-07 20:02] LABS: Glucose - Point of Care 225 mg/dl (70-99)
--- NOTE | 2023-08-07 20:44 | PTCARENOTE ---
pt placed on home CPAP machine by RT Gutierrez.
[2023-08-07 21:09] LABS: Glucose - Point of Care 193 mg/dl (70-99)
[2023-08-07] MEDS: APRESOLINE 25 MG PO (22:22)
[2023-08-07 22:26] LABS: Glucose - Point of Care 143 mg/dl (70-99)
[2023-08-07] MEDS: APRESOLINE 10 MG IV (23:55)
[2023-08-08] VITALS (50 sets, daily range): BP systolic 97–184; BP diastolic 49–89; PULSE 69; O2SAT 96–98; BMI 47.4
[2023-08-08 00:02] LABS: Glucose - Point of Care 125 mg/dl (70-99)
--- NOTE | 2023-08-08 00:08 | PTCARENOTE ---
pt reassessed. 25 mg PO hydralazine and 10 mg IV hydralazine given for elevated BP. see MAR for details. 100% v-paced. POX 94% on CPAP, [address] drainage WNL. no c/o pain at this time.
[2023-08-08] MEDS: CARDENE 200 IV ×2 (01:08→05:56)
[2023-08-08 02:06] LABS: Glucose - Point of Care 80 mg/dl (70-99)
[2023-08-08 04:09] LABS: Glucose - Point of Care 169 mg/dl (70-99)
[2023-08-08] MEDS: NOVOLIN R INSULIN INFUSION 100 IV (04:12)
--- NOTE | 2023-08-08 04:15 | PTCARENOTE ---
assessment remains unchanged. cardene gtt started at 0100 for elevated BP. pt 100% v-paced. POX 92-93% on CPAP, [address] drainage WNL. no c/o pain. AM labs collected and sent.
[2023-08-08 04:17] LABS: Hematocrit 35.5 % (39.0-52.0); Hemoglobin 11.9 g/dL (13.0-18.0); Mean Corp Hgb Conc. 33.5 g/dL (33.0-37.0); Mean Corpuscular Hgb 31.6 pg (27.0-31.0); Mean Corpuscular Volume 94.4 fL (80.0-94.0); Platelet Count 191 10^3/uL (130-400); Red Blood Cell Count 3.76 10^6/uL (4.70-6.10); Red Cell Dist. Width 13.2 % (11.5-14.5); White Blood Cell Count 18.1 10^3/uL (4.8-10.8)
[2023-08-08 04:27] LABS: APTT 33.3 Sec (23.4-35.0)
[2023-08-08 04:56] LABS: Blood Urea Nitrogen 27 mg/dl (9-20); Calcium 9.3 mg/dl (8.4-10.2); Carbon Dioxide 22 mmol/L (22-30); Chloride 106 mmol/L (98-107); Estimated Creatinine Clearance 117 ml/min; Glucose 174 mg/dl (70-99); Magnesium 2.4 mg/dl (1.6-2.3); Potassium 4.5 mmol/L (3.5-5.1); Sodium 135 mmol/L (135-145); eGFR > 60.00
--- NOTE | 2023-08-08 05:42 | W.PN.CT ---
Today's Communication / Plan
-
POD #2
-no significant issues overnight, extubated uneventfully at 8:55 pm POD #0
-HTN requiring cardene despite hydralazine, consider norvasc vs lisinopril (home med) today
-c/o L hand numbness postop - warm, 2+ radial pulse, moves and feels all fingers, good cap. refill, reassured pt - follow
-rhythm appeared NSR with Mobitz 1 - was bentley with hypotension - improved with pacing VVI @70
-CT output: 2 meds 55/240 in 12/24 hrs
-BB and Amio held d/t bradycardia
-continue insulin drip
-Toney dc'd, voiding, UOP 400/750 in 12/24 hrs
-current meds (ASA, Lipitor, Protonix, Neurontin, Lidocaine patch)
-Coumadin started on pod 1 (gave 7.5mg) and will start iv Heparin on pod 2
-uses home CPAP qHS
-encourage IS (1250 after extubation), OOB
-dispo planning
Assessment / Plan
-
- Bicuspid AV with severe symptomatic - s/p 25 mm ON-X [facility] AVR; FLACA ligation with a [address] Stewart on 08/06/23, pod #2
- LVEF preop was 65%. Following surgery, no new regional wall motion abnormalities and EF was hyperdynamic at 70% with mild to moderate left ventricular hypertrophy. There was evidence of diastolic dysfunction given the hypertrophic cardio
myopathy. There was no paravalvular leak, there was inherent washing jets that is normal with this table prosthesis. Both mechanical leaflets were moving normally as expected.
- intraop intermittent junctional and sinus bradycardia, did require DDI pacing.
- Diabetes mellitus, type II (HgA1c 7.5)
- Hypertension
- Class 3 obesity with a BMI of greater than 45
- HODAN, on CPAP
- Hyperlipidemia
- Glaucoma
- Vit D deficiency
- Seasonal allergy
- ED
- L carpal tunnel repair
- Multiple eye surgeries
- Non-smoker
- Acute postop blood loss anemia - stable, no transfusion
- Acute postop atelectasis
- Acute postop hypovolemia with subsequent hypervolemia
- Acute postop bradycardia with hypotension, required pacing- held BB and Amio
- Acute postop 1st degree AVB, intermittent Mobitz 1
Discussed patient care with: Care Team
Subjective
Procedure
- s/p 25 mm ON-X [facility] AVR; FLACA ligation with a [address] Stewart on 08/06/23
-
Date of Service: August 08, 2023
Objective Data
-
Lab Results
08/07/23 03:12
08/07/23 03:12
PT 16.2 Sec (11.4-14.6) H 08/06/23 16:51
INR 1.32 08/06/23 16:51
APTT 29.1 Sec (23.4-35.0) 08/06/23 16:51
Vital Signs
Vital Signs
Temp Pulse Resp BP Pulse Ox
98.6 F 77 20 161/65 94
08/07/23 20:00 08/07/23 20:00 08/07/23 20:00 08/07/23 20:00 08/07/23 20:00
CT Intake/Output/Weight
08/07/23 08/07/23 08/08/23
06:59 18:59 06:59
Intake Total 474.3 / 609.3 229 / 268.9 39.9 / 268.9
Output Total 935 / 1250 535 / 965 430 / 965
Balance -460.7 / -640.7 -306 / -696.1 -390.1 / -696.1
SaO2: 94
Physical Exam
-
General: Awake, Oriented and AOx3
Cardiovascular: Regular rate & rhythm (paced)
Respiratory: Clear, Equal and Decreased Breath Sounds
Sternum: Stable
Incision: Clean, Dry and Intact
Extremities: Edema +1
Data Reviewed
-
Lab Results: Results Reviewed
Medications: Active Meds Reviewed
Chest X-Ray: Image Reviewed
Vital Signs / Labs
-
Vital Signs and Labs:
Temp Pulse Resp BP Pulse Ox
98.6 F 79 18 152/56 92
08/08/23 04:00 08/08/23 05:00 08/08/23 03:00 08/08/23 05:00 08/08/23 05:00
08/08/23 04:06
08/08/23 04:06
08/05/23 08/07/23 08/07/23
09:09 05:32 06:08
WBC
RBC
Hgb
Hct
MCV
MCH
PT
BUN
Glucose
Magnesium
POC Glucose 156 H 126 H
Crossmatch IS Only See Detail
08/07/23 08/07/23 08/07/23
07:02 07:46 09:10
WBC
RBC
Hgb
Hct
MCV
MCH
PT
BUN
Glucose
Magnesium
POC Glucose 135 H 156 H 176 H
Crossmatch IS Only
08/07/23 08/07/23 08/07/23
10:06 11:58 13:02
WBC
RBC
Hgb
Hct
MCV
MCH
PT
BUN
Glucose
Magnesium
POC Glucose 142 H 143 H 133 H
Crossmatch IS Only
08/07/23 08/07/23 08/07/23
14:17 15:03 16:07
WBC
RBC
Hgb
Hct
MCV
MCH
PT
BUN
Glucose
Magnesium
POC Glucose 105 H 118 H 105 H
Crossmatch IS Only
08/07/23 08/07/23 08/07/23
19:59 21:08 22:24
WBC
RBC
Hgb
Hct
MCV
MCH
PT
BUN
Glucose
Magnesium
POC Glucose 225 H 193 H 143 H
Crossmatch IS Only
08/07/23 08/08/23 08/08/23
23:59 04:03 04:06
WBC 18.1 H
RBC 3.76 L
Hgb 11.9 L
Hct 35.5 L
MCV 94.4 H
MCH 31.6 H
PT 17.0 H
BUN 27 H
Glucose 174 H
Magnesium 2.4 H
POC Glucose 125 H 169 H
Crossmatch IS Only
[2023-08-08] MEDS: TYLENOL 1000 MG PO ×3 (05:56→21:53)
[2023-08-08] MEDS: LASIX 40 MG IV (06:03)
[2023-08-08] MEDS: ORETIC 12.5 MG PO ×2 (06:04→08:10)
[2023-08-08 06:08] LABS: Glucose - Point of Care 179 mg/dl (70-99)
[2023-08-08] MEDS: ZESTRIL 20 MG PO (07:19)
--- NOTE | 2023-08-08 07:43 | PN.DE.MGMTRT ---
Insulin Management
- -
08/08/2023: Diabetes Management Consult Follow up
Patient admitted for elective AVR. PMH includes T2DM, Routinely sees [facility]- sees Rishi, was last seen 2 weeks ago. Has Medtronic pump, warranty expires end of July currently researching new pump options. Uses
CGM Dexcom G7, NovoLog insulin, Metformin 1000mg BID, and Victoza that was recently switched to Ozempic 0.25mg weekly but had not started taking it yet.
POD 2 s/p AVR with FLACA ligation. Currently on glycemic protocol requiring 1.9 to 12 units of insulin per hour. Glucose range 80 to 179. Will transition to insulin pump today.
Pump settings as follows:
Basal carb ratio Correction Target
12am to 12 AM 2 units/hr 4 13 110 - 120
6am 2
7am 10
11am 4
24 hour basal total 48 units.
Infusion set Quick set 9mm inserted without difficulty, DexCom G7 placed. Insulin infusion to be stopped in 1 hour. Patient to bolus for meals and glucose to be checked AC HS with [employer] Inform II. Will follow
Diabetes History
- -
Type of Diabetes: 2 requiring insulin
Pre-Admission Diabetes Regimen
08/08/23
04:06
Creatinine 0.9
Lab Results
Hemoglobin A1c 7.5 % (4.0-5.6) H 07/13/23 12:07
Insulin Pump Settings
IP Diabetes Regimen
08/07/23 08/07/23 08/07/23
07:46 09:10 10:06
Glucose
POC Glucose 156 H 176 H 142 H
08/07/23 08/07/23 08/07/23
11:58 13:02 14:17
Glucose
POC Glucose 143 H 133 H 105 H
08/07/23 08/07/23 08/07/23
15:03 16:07 18:04
Glucose
POC Glucose 118 H 105 H 99
08/07/23 08/07/23 08/07/23
19:59 21:08 22:24
Glucose
POC Glucose 225 H 193 H 143 H
08/07/23 08/08/23 08/08/23
23:59 02:05 04:03
Glucose
POC Glucose 125 H 80 169 H
08/08/23 08/08/23
04:06 06:06
Glucose 174 H
POC Glucose 179 H
Patient Education
--- NOTE | 2023-08-08 08:00 | PTCARENOTE ---
pt received from previous RN, oriented, OOB in chair. 100% V-paced the monitor, HR 70s. A&V wires, DDD 60/9. underlying Wenckebach rhythm. SBP 110-140s, Cardene gtt titrated as ordered. palpable pulses, trace/+1 generalized edema, +2 L hand edema.
pt on 5L MF, 93-98% POX. lungs diminished in bases. IS encouraged. CT x2, no air leak or crepitus noted. pt abdomen round, s/n, denies n/v. diet tolerated well. voids in urinal. 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 chest tube dressing c/d/i. RIJ
cordis maintained. PIV. insulin gtt running per protocol. see worklist for VS, I&O, and assessment.
[2023-08-08 08:08] LABS: Glucose - Point of Care 145 mg/dl (70-99)
[2023-08-08] MEDS: NOVOLOG FLEXPEN 8 UNITS SC ×2 (08:08→12:40)
[2023-08-08] MEDS: NEURONTIN 100 MG PO ×3 (08:10→21:52)
[2023-08-08] MEDS: LIDOCAINE 4% PATCH TOPICAL (08:10)
[2023-08-08] MEDS: APRESOLINE 25 MG PO (08:10)
[2023-08-08] MEDS: LOW STRENGTH ASPIRIN 81 MG PO (08:10)
[2023-08-08] MEDS: PROTONIX 40 MG PO (08:10)
[2023-08-08] MEDS: LIPITOR 10 MG PO (08:10)
[2023-08-08] MEDS: SENOKOT-S 1 TABLET PO ×2 (08:10→20:07)
[2023-08-08] MEDS: BACTROBAN 2% OINTMENT 1 APPLIC NASAL ×2 (08:11→20:07)
[2023-08-08 09:59] LABS: Glucose - Point of Care 118 mg/dl (70-99)
--- NOTE | 2023-08-08 10:00 | W.PN.INTV ---
Today's Communication / Plan
Recommendations
Up OOB as tolerated
CPAP with sleep
Insulin drip has been weaned off and patient is now back on his home SQ insulin pump
Patient is now CVICU�telemetry status. Mixer Operator Hot Metal/pulmonary service will now sign off. Please reconsult if there are any additional questions/concerns, or if patient's respiratory status deteriorates.
Assessment
-
Assessment: 63-year-old male with a past medical history of sleep apnea on CPAP, allergic rhinitis, DM type II, hypertension and hyperlipidemia who presents for aortic valve placement. Patient has a history of severe aortic valve stenosis and is
known to Dr. Stewart with last office visit on 07/05/2023. Patient is active and performs ADLs with no difficulty. He underwent a left heart catheterization on 06/18/2023 showing mildly elevated filling pressures with a wedge of 32 mmHg. Prior
transthoracic echo performed in May 2023 yielded a peak/mean gradient of 98/59 mmHg, respectively. KATHERINE was calculated to be just around 1.04. LVEF was preserved at 65% with moderate concentric LVH. Discussion of TAVR versus SAVR took place
and patient was consented for both procedures. Patient now presents for surgical aortic valve replacement. On 08/06/2023 he underwent standard sternotomy with surgical aortic valve replacement with FLACA ligation with a 35 mm clip. Patient underwent
procedure with no immediate complications and was transferred to the CVICU postoperatively for further care. Mixer Operator Hot [employer] service is now consulted for additional management/recommendations.
Chronic conditions SURGICAL TECHNOLOGY INSTRUCTOR: Vitamin D deficiency, hyperlipidemia, DM type II, hypertension, allergic rhinitis, ED, sleep apnea on CPAP, carpal tunnel, glaucoma, heart murmur, and severe aortic valve stenosis
Impression:
#Severe aortic stenosis s/p surgical aortic valve replacement (POD #2)
#Anemia (mild + stable)
#Hyperglycemia - resolved
#Morbid obesity
Plan:
Titrate O2 flow rate to maintain SpO2 >90-94%
Encourage incentive spirometry
Increase activity as tolerated
Aspiration precautions
prn nebulized bronchodilators
Continue CPAP with sleep
Chest tubes have been removed
Follow hemoglobin
Continue to follow platelet count and coags
Transfuse blood products as needed
Monitor blood sugar with goal BG 140-180mg/dL
Insulin drip now weaned off and patient's own insulin pump back on
Replete electrolytes with K>4, Mg>2
Early nutrition
Early mobilization
DVT prophylaxis
Patient is now CVICU�telemetry status. Mixer Operator Hot Metal/pulmonary service will now sign off. Thank you for allowing us to be involved in the care of this patient. Please reconsult if there are any additional questions/concerns, or if patient's
respiratory status deteriorates.
I personally reviewed the patient's pertinent medical records including radiographs, microbiology, laboratory evaluations, and discussion with primary team, and critical care nursing.
Total time spent today was 55 minutes for this encounter. Time includes reviewing laboratory test/imaging results, reviewing pertinent medical records, obtaining and reviewing medical history, performing an appropriate exam, ordering medications,
tests and procedures. Time also includes documentation of this encounter, coordinating patient care and communicating with other healthcare professionals. Total time does not include separately billed tests performed on this date of service.
Data:
CXR 08-08-2023: Postoperative changes with interval removal of [place] catheter. No pneumothorax
CXR 08-07-2023: Interval removal of endotracheal tube; Low lung volumes with no findings to confirm pneumothorax.
CXR 08-06-2023: Postoperative chest.
Subjective Dataa
Subjective Data
Date of Service:
Date of Service: August 08, 2023
Chief Complaint: Mixer Operator Hot Metal Follow Up
Subjective:
Patient seen this afternoon. Remains on heparin drip. Insulin infusion is now off. Heart rate 78. He remains on nasal cannula at 3 L/min and is breathing comfortably. No acute events reported from overnight.
Review of Systems
General: Other (Negative unless mentioned above)
Objective Data
Data Reviewed
Vital Signs / I&O / Oxygen:
Vital Signs
Temp Pulse Resp BP Pulse Ox
98.2 F 78 18 105/89 92
08/08/23 12:04 08/08/23 14:30 08/08/23 12:04 08/08/23 13:30 08/08/23 13:30
Intake and Output
08/07/23 08/08/23 08/09/23
06:59 06:59 06:59
Intake Total 584.3 / 609.3 673.0 / 673.0 219.5 / 219.5
Output Total 1220 / 1250 1340 / 1340 600 / 600
Balance -635.7 / -640.7 -667.0 / -667.0 -380.5 / -380.5
SaO2 [CPAP/PSV] 96
SaO2 [SIMV] 98
SaO2 92
Nasal Cannula flow liters per 3
minute
Physical Exam
General: Respiratory Distress (negative) and Comfortable
HEENT: Normocephalic and Anicteric
Cardiovascular: S1-S2, Peripheral Edema (negative) and Other (Distant cardiac sounds)
Respiratory: Clear, Wheeze (negative), Crackles (negative), Rhonchi (negative) and Non-Labored Respirations
GI: Soft, Non Tender, Normal Bowel Sounds and Other (Abdominal obesity)
Neurology: AO x 3
Skin: Warm and Dry
Labs/Micro/Reports
Lab Data
08/08/23 08:34
08/08/23 04:06
Laboratory Results
08/08/23 08/08/23
04:06 08:34
PT 17.0 H
INR 1.40
APTT 33.3 Cancelled
--- NOTE | 2023-08-08 10:30 | PTCARENOTE ---
pt placed back to bed, Med CTs dc'd as ordered, dressing c/d/i.
[2023-08-08] MEDS: HEPARIN 25000 UNITS/250 ML IV (10:53)
[2023-08-08 12:04] LABS: Glucose - Point of Care 93 mg/dl (70-99)
--- NOTE | 2023-08-08 12:04 | W.PN.CARDCBS ---
Today's Communication / Plan
-
Holding amiodarone and metoprolol
Maintain epicardial wires today
Underlying rhythm is junctional escape at 60 to 62 bpm with complete heart block
At this is postoperative day 2 I suspect his conduction will recover although we can certainly perform permanent pacemaker implantation later this week or early next week and would defer to CT surgery for timing. We can perform the procedure on
near therapeutic warfarin so agree with initiating warfarin at this time.
Impression / Plan
-
Addendum added by Dr. Don Gibson:
Patient seen and examined
Agree with CLARE Lu's notes and assessment
agree with CLARE Lu's plan
exam:
noted underlying rhythm this am underlying bradycardia and mobitz 1 type 2 AV block and now paced POD#1
cor regular
tubes noted
cordis noted
abd soft nt nd
no ext edema
aao x3
non focal neurologically
Assessment:
Bicuspid aortic valve with severe symptomatic status post mechanical AVR, FLACA ligation with clip 08/06/2023
Postop Wenckebach
Postop anemia
Type 2 diabetes
Hypertension
Hyperlipidemia
Obesity
HODAN on CPAP
Vitamin D deficiency
Multiple prior eye surgeries
ECHO 06/06/23: EF 60 to 65%, severe aortic stenosis with peak/mean gradients 98/59 mmHg, KATHERINE 0.9 to 1.0 cm�, no AR, mild TR, PAP 37 mmHg
IntraOp CEASAR 08/06/2023: Severe , moderate LVH, mild left atrial enlargement, mild TR, very small PFO with intermittent ploj-xs-esxib shunt. Postoperatively valve well-seated with leaflets functioning well, mean gradient of 8 mmHg with no evidence
of paravalvular leak, left atrial appendage clip well-seated with no flow seen through FLACA remnant. EF remained preserved
Plan:
-Patient's status post mechanical AVR and left atrial appendage clip with ligation 08/06/2023
-With minimal pain
-Remains 100% a sensed V paced at this time. Underlying rhythm this morning was complete heart block with junctional escape at 60 beats a minute which appeared stable. Follow closely. Amiodarone and beta-rachele on hold. I would suspect edema
related as this is POD#2 and would maintain epicardial wires today. Ultimately defer to surgery on timing of pulling epicardials. I had a discussion in broad strokes about pacing with patient and but I suspect and hope he will recover
conduction in next 24-48 hrs. No objection to doing a device on warfarin ultimately if needed.
-Agree with heparin to Coumadin. If a permanent pacemaker is needed we can perform the device on Coumadin therapy
-Prior to admission was on lisinopril/HCTZ combo pill
-Continue out of bed/IS as able
-Continue postop care
-Discussed with nursing
-Discussed with CT surgical nursing
Progress Note - License Clerk
Subjective
Date of Service: August 08, 2023
Reviewed telemetry
Underlying rhythm noted
Objective
Labs:
08/08/23 08:34
08/08/23 04:06
Labs
Hgb Cancelled 08/08/23 08:34
Hct Cancelled 08/08/23 08:34
Plt Count Cancelled 08/08/23 08:34
PT 17.0 Sec (11.4-14.6) H 08/08/23 04:06
INR 1.40 08/08/23 04:06
APTT Cancelled 08/08/23 08:34
Sodium 135 mmol/L (135-145) 08/08/23 04:06
Potassium 4.5 mmol/L (3.5-5.1) 08/08/23 04:06
BUN 27 mg/dl (9-20) H 08/08/23 04:06
Creatinine 0.9 mg/dL (0.7-1.3) 08/08/23 04:06
Glucose 174 mg/dl (70-99) H 08/08/23 04:06
Vital Signs and I&O:
Vital Signs
Temp Pulse Resp BP Pulse Ox
98.1 F 72 18 130/53 93
08/08/23 08:00 08/08/23 12:00 08/08/23 12:04 08/08/23 12:00 08/08/23 12:04
Vital Signs
Temp Pulse Resp BP Pulse Ox
98.1 F 72 18 130/53 93
08/08/23 08:00 08/08/23 12:00 08/08/23 12:04 08/08/23 12:00 08/08/23 12:04
Intake & Output
08/06/23 08/07/23 08/08/23 08/09/23
06:59 06:59 06:59 06:59
Intake Total 584.3 / 609.3 673.0 / 673.0 113.5 / 113.5
Output Total 1220 / 1250 1340 / 1340 400 / 400
Balance -635.7 / -640.7 -667.0 / -667.0 -286.5 / -286.5
Physical Exam
Physical Exam
Physical Exam
General: no apparent distress, not acutely ill
Neck: supple. no meningeal signs. normal psoterior pharynx
Heart: s1/s2 regular rate and rhythm, no murmur. equal radial pulses.
Lungs: no acute respiratory distress. clear bilaterally
Abdomen: normal bowel sounds. not tender. no CVAT
Neuro: alert and oriented. no focal neurological deficits
Skin: no rash
Psychiatric: well kept. interactive and cooperative
Extremities: no edema. no calf tenderness. negative homans. good distal pulses
--- NOTE | 2023-08-08 12:25 | PTCARENOTE ---
pt VSS, CTs dc'd as ordered. pt OOB in chair for dinner. heparin gtt started as ordered.
[2023-08-08] MEDS: NSS 500 IV (13:55)
[2023-08-08 14:00] LABS: Glucose - Point of Care 231 mg/dl (70-99)
[2023-08-08] MEDS: PT'S OWN INSULIN PUMP - NovoLOG SC ×2 (14:26→21:59)
--- NOTE | 2023-08-08 14:34 | PTCARENOTE ---
pts own insulin pump set up w/ TILE SETTER Yohana Asher. insulin gtt turned off @1400 per orders. pt ambulated in hallway w/ stand by assist.
--- NOTE | 2023-08-08 15:33 | CM ---
CM following for DC planning needs.
Pt. is POD#2.
Reviewed initial assessment. Pt. resides w/ spouse in a private 2 story home, 2 MINA. Functionally, patient is indep. w/ ADLs, mobility without the use of any assisted device.
Plan is for DC to home w/ CT Transitional Care RN.
CM will cont. to follow.
--- NOTE | 2023-08-08 16:00 | PTCARENOTE ---
pt VSS, no changes in assessment. no c/o pain. resting between care.
[2023-08-08] MEDS: APRESOLINE PO (16:48)
[2023-08-08] MEDS: NON-FORMULARY ITEM 1 DROP BOTH EYES (16:56)
[2023-08-08 17:19] LABS: APTT 65.7 Sec (23.4-35.0)
[2023-08-08] MEDS: COUMADIN 7.5 MG PO (17:24)
[2023-08-08] MEDS: PT'S OWN INSULIN PUMP - NovoLOG 24.8000000000000007 UNIT SC (17:28)
[2023-08-08 17:29] LABS: Glucose - Point of Care 197 mg/dl (70-99)
--- NOTE | 2023-08-08 17:42 | PTCARENOTE ---
pt ambulated in hallway, OOB in chair for dinner.
--- NOTE | 2023-08-08 20:00 | PTCARENOTE ---
assumed care of pt from previous RN. pt A&Ox4, resting in chair at time of assessment. no c/o pain at time of assessment. pt ambulated 200' in hallway w/ this RN. pt is 100% v-paced, a-sensed w/ temp epicardial pacing wires. see worklist for
settings. mechanical click auscultated. palpable peripheral pulses. +1 edema in L hand. generalized anasarca noted. POX 93-95% on 3 L NC. abd s/n, round, obese. +BS. voiding clear, yellow urine in urinal. sternal incision stable, approximated w/
surgi-glue, QA TESTER. R IJ cordis w/ KVO. heparin infusing. PIV intact. pt placed on home CPAP following assessment. see worklist for complete nursing assessment, interventions, VS, and I&Os.
[2023-08-08 22:01] LABS: Glucose - Point of Care 178 mg/dl (70-99)
[2023-08-09] VITALS (9 sets, daily range): BP systolic 108–154; BP diastolic 41–65; PULSE 72; O2SAT 94–97; BMI 47.4
--- NOTE | 2023-08-09 | PTCARENOTE ---
pt reassessed. VSS. 100% v-paced on tele-monitor. POX 92% w/ CPAP on 2 L O2. heparin infusing. PTT therapeutic. will re-draw at 0530.
[2023-08-09] MEDS: HEPARIN 25000 UNITS/250 ML IV (02:07)
--- NOTE | 2023-08-09 05:34 | W.PN.CT ---
Today's Communication / Plan
-
POD #3
-no significant issues overnight
-cardene gtt off yesterday, home lisinopril resumed
-c/o L hand numbness postop - warm, 2+ radial pulse, moves and feels all fingers, good cap. refill, reassured pt - follow
-rhythm appeared NSR with Mobitz 1 - was bentley with hypotension - improved with pacing VVI @70 - remains in HB under pacer, see EKG
-CTs d/c'd 08/07
-BB and Amio held d/t bradycardia
-patients home insulin pump resumed 08/07
-Toney dc'd, voiding, UOP 300/900 in 12/24 hrs
-current meds (ASA, Lipitor, Protonix, Neurontin, Lidocaine patch)
-Coumadin started on pod 1 (gave 7.5mg 08/06 & 24) and iv Heparin on pod 2 for bridge - INR 2.31 today -> d/c hep gtt. planned for Coumadin 5 today
-uses home CPAP qHS
-encourage IS (1250 after extubation), OOB
-dispo planning
Assessment / Plan
-
- Bicuspid AV with severe symptomatic - s/p 25 mm ON-X [facility] AVR; FLACA ligation with a [address] Stewart on 08/06/23, pod #3
- LVEF preop was 65%. Following surgery, no new regional wall motion abnormalities and EF was hyperdynamic at 70% with mild to moderate left ventricular hypertrophy. There was evidence of diastolic dysfunction given the hypertrophic cardio
myopathy. There was no paravalvular leak, there was inherent washing jets that is normal with this table prosthesis. Both mechanical leaflets were moving normally as expected.
- intraop intermittent junctional and sinus bradycardia, did require DDI pacing.
- Diabetes mellitus, type II (HgA1c 7.5)
- Hypertension
- Class 3 obesity with a BMI of greater than 45
- HODAN, on CPAP
- Hyperlipidemia
- Glaucoma
- Vit D deficiency
- Seasonal allergy
- ED
- L carpal tunnel repair
- Multiple eye surgeries
- Non-smoker
- Acute postop blood loss anemia - stable, no transfusion
- Acute postop atelectasis
- Acute postop hypovolemia with subsequent hypervolemia
- Acute postop bradycardia with hypotension, required pacing- held BB and Amio
- Acute postop 1st degree AVB, intermittent Mobitz 1
Discussed patient care with: Care Team
Subjective
Procedure
- s/p 25 mm ON-X [facility] AVR; FLACA ligation with a [address] Stewart on 08/06/23
-
Date of Service: August 09, 2023
Objective Data
-
Lab Results
08/08/23 08:34
08/08/23 04:06
PT 17.0 Sec (11.4-14.6) H 08/08/23 04:06
INR 1.40 08/08/23 04:06
APTT 65.7 Sec (23.4-35.0) H 08/08/23 16:55
Vital Signs
Vital Signs
Temp Pulse Resp BP Pulse Ox
98.6 F 79 18 138/57 93
08/08/23 16:47 08/08/23 18:00 08/08/23 16:47 08/08/23 16:45 08/08/23 16:47
CT Intake/Output/Weight
08/08/23 08/08/23 08/09/23
06:59 18:59 06:59
Intake Total 444.0 / 673.0 270.5 / 270.5
Output Total 805 / 1340 600 / 600
Balance -361.0 / -667.0 -329.5 / -329.5
SaO2: 93
Physical Exam
-
General: Awake, Oriented and AOx3
Cardiovascular: Regular rate & rhythm (paced)
Respiratory: Clear, Equal and Decreased Breath Sounds
Sternum: Stable
Incision: Clean, Dry and Intact
Extremities: Edema +1
Data Reviewed
-
Lab Results: Results Reviewed
Medications: Active Meds Reviewed
Chest X-Ray: Image Reviewed
Vital Signs / Labs
-
Vital Signs and Labs:
Temp Pulse Resp BP Pulse Ox
98.9 F 66 18 154/65 93
08/09/23 04:00 08/09/23 05:00 08/09/23 00:00 08/09/23 04:11 08/09/23 04:11
08/09/23 05:40
08/08/23 08/08/23 08/08/23
08:07 09:57 13:58
WBC
RBC
Hgb
Hct
MCV
MCH
PT
APTT
POC Glucose 145 H 118 H 231 H
08/08/23 08/08/23 08/08/23
16:55 17:28 21:54
WBC
RBC
Hgb
Hct
MCV
MCH
PT
APTT 65.7 H
POC Glucose 197 H 178 H
08/08/23 08/09/23
23:22 05:40
WBC 13.7 H
RBC 3.67 L
Hgb 11.6 L
Hct 34.6 L
MCV 94.3 H
MCH 31.6 H
PT 25.6 H
APTT 84.0 H 86.2 H
POC Glucose
[2023-08-09 05:48] LABS: Hematocrit 34.6 % (39.0-52.0); Hemoglobin 11.6 g/dL (13.0-18.0); Mean Corp Hgb Conc. 33.5 g/dL (33.0-37.0); Mean Corpuscular Hgb 31.6 pg (27.0-31.0); Mean Corpuscular Volume 94.3 fL (80.0-94.0); Mean Platelet Volume 9.9 fL (7.4-10.4); Platelet Count 192 10^3/uL (130-400); Red Blood Cell Count 3.67 10^6/uL (4.70-6.10); Red Cell Dist. Width 13.1 % (11.5-14.5); White Blood Cell Count 13.7 10^3/uL (4.8-10.8)
[2023-08-09 05:56] LABS: INR 2.31; PT 25.6 Sec (11.4-14.6)
[2023-08-09 05:58] LABS: APTT 86.2 Sec (23.4-35.0)
[2023-08-09] MEDS: TYLENOL 1000 MG PO ×3 (06:12→22:15)
[2023-08-09 06:35] LABS: Blood Urea Nitrogen 27 mg/dl (9-20); Calcium 8.9 mg/dl (8.4-10.2); Carbon Dioxide 26 mmol/L (22-30); Chloride 105 mmol/L (98-107); Estimated Creatinine Clearance > 125 ml/min; Glucose 170 mg/dl (70-99); Magnesium 2.3 mg/dl (1.6-2.3); Potassium 4.1 mmol/L (3.5-5.1); Sodium 134 mmol/L (135-145); eGFR > 60.00
[2023-08-09 07:19] LABS: Glucose - Point of Care 189 mg/dl (70-99)
[2023-08-09] MEDS: PT'S OWN INSULIN PUMP - NovoLOG 42.8999999999999986 UNIT SC (07:19)
--- NOTE | 2023-08-09 07:39 | PN.DE.MGMTRT ---
Insulin Management
- -
08/09/2023: Diabetes Management Consult Follow up
Patient admitted for elective AVR. PMH includes T2DM, Routinely sees [facility]- sees Rishi, was last seen 2 weeks ago. Has Medtronic pump, warranty expires end of July currently researching new pump options. Uses
CGM Dexcom G7, NovoLog insulin, Metformin 1000mg BID, and Victoza that was recently switched to Ozempic 0.25mg weekly but had not started taking it yet.
POD 3 s/p AVR with FLACA ligation. Transitioned from glycemic protocol to patients insulin pump yesterday ~ 1300, insulin infusion off @ 1400. Glucose range 170 to 180.
Pump settings as follows:
Basal carb ratio Correction Target
12am to 2 AM 2 units/hr 4 13 110 - 120
2AM 2.2 units/hr
6am 2
7am 10
11am 4
24 hour basal total 49 units.
Infusion set Quick set 9mm inserted without difficulty, DexCom G7 placed. Fasting glucose elevated this AM, 189, discussed with patient. Able to access DexCom G7 readings overnight, glucose begins to trend up at around 3am. Discussed with patient
the need to increase basal rate at 2AM to 2.2. He is agreeable, setting changed. Discussed with patient after discharge to start Ozempic as prescribed by endocrine. At that time he should evaluate overnight glucose results for need to return 2AM
basal to 2 units. Patient has my number for further questions.
Diabetes History
- -
Type of Diabetes: 2 requiring insulin
Pre-Admission Diabetes Regimen
08/09/23
05:40
Creatinine 0.7
Lab Results
Hemoglobin A1c 7.5 % (4.0-5.6) H 07/13/23 12:07
Insulin Pump Settings
IP Diabetes Regimen
08/08/23 08/08/23 08/08/23
08:07 09:57 12:02
Glucose
POC Glucose 145 H 118 H 93
08/08/23 08/08/23 08/08/23
13:58 17:28 21:54
Glucose
POC Glucose 231 H 197 H 178 H
08/09/23 08/09/23
05:40 07:18
Glucose 170 H
POC Glucose 189 H
Patient Education
--- NOTE | 2023-08-09 08:00 | PTCARENOTE ---
Received pt from sales enablement consultant RN; pt AAOx3 and resting comfortably in chair; 100% V paced on monitor and VSS; Epicardial A/V wires set to DDD 60/9/0.8; RIJ Cordis and PIVx1; lungs diminished; IS to 1250; positive bowel sounds; pt voiding clear yellow
urine; palpable pulses throughout; +1 generalized edema noted; surgical site C/D/I; see nursing documentation for further details.
[2023-08-09] MEDS: SENOKOT-S 1 TABLET PO ×2 (08:04→19:56)
[2023-08-09] MEDS: PROTONIX 40 MG PO (08:04)
[2023-08-09] MEDS: LOW STRENGTH ASPIRIN 81 MG PO (08:04)
[2023-08-09] MEDS: KCL 20 MEQ PO (08:04)
[2023-08-09] MEDS: LIPITOR 10 MG PO (08:04)
[2023-08-09] MEDS: ZESTRIL 20 MG PO (08:04)
[2023-08-09] MEDS: ORETIC 12.5 MG PO (08:04)
[2023-08-09] MEDS: LIDOCAINE 4% PATCH TOPICAL (08:05)
[2023-08-09] MEDS: BACTROBAN 2% OINTMENT 1 APPLIC NASAL ×2 (08:05→19:57)
[2023-08-09] MEDS: NEURONTIN 100 MG PO ×3 (08:05→22:15)
[2023-08-09] MEDS: LASIX 40 MG IV (08:05)
--- NOTE | 2023-08-09 09:46 | PTCARENOTE ---
Insulin pump in left lower abdomen; dressing C/D/I.
--- NOTE | 2023-08-09 11:23 | W.PN.CARDCBS ---
Addendum entered and electronically signed by Michaela Abreu DO 08/09/23 14:54:
I saw and examined the patient.
The Java Jsf Developer's note was reviewed and I agree with the note.
Comment: Patient seen and examined sitting out of bed to chair. Overall feeling well without chest pain, dizziness or shortness of breath. Voiding well.
GEN: NAD, out of bed to chair
HEENT: mmm
LUNGS: Diminished BS B/L, no wheezes
CV: Reg, S1/S2, no murmur, pacer wires present
ABD: soft, BS+, NT/ND
EXT: trace edema of B/L LE
NEURO: Gross non-focal
SKIN: Sternotomy dressing c/d/i
Plan:
-Patient's status post mechanical AVR and left atrial appendage clip with ligation 08/06/2023
-remains a sensed v paced with complete heart block.
-Off AV kim blocking agents .
-Maintain epicardial wires; EP is aware of patient and will reassess in the next few days need for permanent pacer
-IV heparin stopped today as INR therapeutic at 2.31. If a permanent pacemaker is needed EP ok to perform device implant on Coumadin therapy
-Prior to admission was on lisinopril/HCTZ combo pill
-Continue out of bed/IS as able
-Continue postop care
-Discussed with nursing and CT surgery
-Case reviewed with EP
Original Note:
Today's Communication / Plan
-
continue post op care
follow underlying rhythm
amio/BB remain on hold
if no return of conduction, will require ppm
INR therapeutic
Impression / Plan
-
Addendum added by Dr. Don Gibson:
Patient seen and examined
Agree with CLARE Lu's notes and assessment
agree with CLARE Lu's plan
exam:
noted underlying rhythm this am underlying bradycardia and mobitz 1 type 2 AV block and now paced POD#1
cor regular
tubes noted
cordis noted
abd soft nt nd
no ext edema
aao x3
non focal neurologically
Assessment:
Bicuspid aortic valve with severe symptomatic status post mechanical AVR, FLACA ligation with clip 08/06/2023
Postop Wenckebach and CHB
Postop anemia
Type 2 diabetes
Hypertension
Hyperlipidemia
Obesity
HODAN on CPAP
Vitamin D deficiency
Multiple prior eye surgeries
ECHO 06/06/23: EF 60 to 65%, severe aortic stenosis with peak/mean gradients 98/59 mmHg, KATHERINE 0.9 to 1.0 cm�, no AR, mild TR, PAP 37 mmHg
IntraOp CEASAR 08/06/2023: Severe , moderate LVH, mild left atrial enlargement, mild TR, very small PFO with intermittent [id number]-ca-[id number] shunt. Postoperatively valve well-seated with leaflets functioning well, mean gradient of 8 mmHg with no evidence
of paravalvular leak, left atrial appendage clip well-seated with no flow seen through FLACA remnant. EF remained preserved
Plan:
-Patient's status post mechanical AVR and left atrial appendage clip with ligation 08/06/2023
-feeling well
-remains a sensed v paced. underlying rhythm remains complete heart block. Amiodarone and beta-rachele on hold. Ideally would maintain epicardial wires, however Ultimately defer to surgery on timing of pulling epicardials. Hopefully conduction
recovers in next 24-48 hours.
-IV heparin stopped today as INR therapeutic at 2.31. If a permanent pacemaker is needed EP ok to perform device implant on Coumadin therapy
-Prior to admission was on lisinopril/HCTZ combo pill
-Continue out of bed/IS as able
-Continue postop care
-Discussed with nursing
Progress Note - Paramedic Rn
Subjective
Date of Service: August 09, 2023
Feeling well. No complaints
Objective
Labs:
08/09/23 05:40
08/09/23 05:40
Labs
Hgb 11.6 g/dL (13.0-18.0) L 08/09/23 05:40
Hct 34.6 % (39.0-52.0) L 08/09/23 05:40
Plt Count 192 10^3/uL (130-400) 08/09/23 05:40
PT 25.6 Sec (11.4-14.6) H 08/09/23 05:40
INR 2.31 08/09/23 05:40
APTT 86.2 Sec (23.4-35.0) H 08/09/23 05:40
Sodium 134 mmol/L (135-145) L 08/09/23 05:40
Potassium 4.1 mmol/L (3.5-5.1) 08/09/23 05:40
BUN 27 mg/dl (9-20) H 08/09/23 05:40
Creatinine 0.7 mg/dL (0.7-1.3) 08/09/23 05:40
Glucose 170 mg/dl (70-99) H 08/09/23 05:40
Vital Signs and I&O:
Vital Signs
Temp Pulse Resp BP Pulse Ox
98.7 F 74 20 137/52 93
08/09/23 07:57 08/09/23 09:00 08/09/23 07:57 08/09/23 07:55 08/09/23 09:50
Vital Signs
Temp Pulse Resp BP Pulse Ox
98.7 F 74 20 137/52 93
08/09/23 07:57 08/09/23 09:00 08/09/23 07:57 08/09/23 07:55 08/09/23 09:50
Intake & Output
08/07/23 08/08/23 08/09/23 08/10/23
07:59 07:59 07:59 07:59
Intake Total 609.3 / 635.3 648.0 / 707.5 1050.5 / 1050.5
Output Total 1250 / 1290 1310 / 1310 1500 / 1500 1850 / 1850
Balance -640.7 / -654.7 -662.0 / -602.5 -449.5 / -449.5 -1850 / -1850
Physical Exam
Physical Exam
GEN: No distress, awake, alert, oriented x3. Obese. Sitting in chair
HEENT: supple, anicteric, mmm, EOMI
LUNGS: Diminished BS B/L, no wheezes
CV: Reg, S1/S2, no murmur
ABD: soft, BS+, NT/ND
EXT: No cyanosis, clubbing. trace edema of B/L LE
NEURO: Gross non-focal
SKIN: Warm, pink, dry. No rash. Sternotomy dressing c/d/i
[2023-08-09 11:37] LABS: Glucose - Point of Care 86 mg/dl (70-99)
[2023-08-09] MEDS: PT'S OWN INSULIN PUMP - NovoLOG 8.69999999999999929 UNIT SC (12:00)
--- NOTE | 2023-08-09 13:04 | PTCARENOTE ---
RIJ Cordis removed per CV GAMMA OPERATOR order.
[2023-08-09 13:13] LABS: INR 2.27; PT 25.3 Sec (11.4-14.6)
--- NOTE | 2023-08-09 13:30 | PTCARENOTE ---
V-paced on monitor and VSS; assessment unchanged and pt resting comfortably in bed.
--- NOTE | 2023-08-09 14:35 | CM ---
Addendum entered by REILLY Gandhi 08/09/23 15:49:
Met w/ patient, spouse at bedside. Reviewed CM role, reviewed DC plan.
Pt. reports that he is feeling well.
Will cont. to follow.
Original Note:
CM following for DC planning needs.
Attempted to meet w patient at bedside; patient was sleeping soundly.
Reviewed anticipated DC plan for home w/ CT Transitional Care RN.
CM will cont. to follow.
[2023-08-09] MEDS: NSS IV (16:06)
--- NOTE | 2023-08-09 16:34 | PTCARENOTE ---
Sinus Bradycardia on monitor and VSS; assessment unchanged.
[2023-08-09] MEDS: PT'S OWN INSULIN PUMP - NovoLOG 16.1999999999999993 UNIT SC (16:40)
[2023-08-09 16:41] LABS: Glucose - Point of Care 112 mg/dl (70-99)
[2023-08-09] MEDS: COUMADIN 5 MG PO (17:05)
[2023-08-09] MEDS: NON-FORMULARY ITEM 1 DROP BOTH EYES (17:06)
--- NOTE | 2023-08-09 20:30 | PTCARENOTE ---
Assumed care of pt from john RN. Pt AAOx3. DEUTSCH. Walking independently. Walk in [place] x1. 100% V-paced on the monitor. Temporary epicardial A/V wires set to DDD 60/9/0.8. Palpable pulses throughout. Generalized edema. Pt on RA - sleeps with home
CPAP machine. POX 94%. Deep breathing and IS encouraged. Lung sounds diminished at the bases. Abdomen round. +BS. Voiding in urinal. CT dressing CDI. Sternal incision approximated w/ surgical adhesive and open to air. Pt own insulin pump site CDI.
PIVx1 CDI. No c/o pain at this time. See worklist for full nursing assessment, VS, and interventions. Call talamantes within reach.
[2023-08-09 22:04] LABS: Glucose - Point of Care 102 mg/dl (70-99)
[2023-08-09] MEDS: PT'S OWN INSULIN PUMP - NovoLOG SC (22:16)
[2023-08-10] VITALS (12 sets, daily range): BP systolic 118–151; BP diastolic 50–69; PULSE 78; O2SAT 96–98; BMI 46.9
--- NOTE | 2023-08-10 00:19 | PTCARENOTE ---
Previous assessment unchanged. Pt 100% v-paced on the monitor. HR 60s. Temporary epicardial A/V wires intact, settings unchanged. Pt using home CPAP machine. All surgical sites stable. No c/o pain at this time. Call talamantes within reach.
[2023-08-10 03:58] LABS: Hematocrit 35.1 % (39.0-52.0); Mean Corp Hgb Conc. 34.2 g/dL (33.0-37.0); Mean Corpuscular Hgb 31.9 pg (27.0-31.0); Mean Corpuscular Volume 93.4 fL (80.0-94.0); Platelet Count 236 10^3/uL (130-400); Red Blood Cell Count 3.76 10^6/uL (4.70-6.10); Red Cell Dist. Width 12.9 % (11.5-14.5)
[2023-08-10 04:10] LABS: INR 2.18; PT 24.5 Sec (11.4-14.6)
--- NOTE | 2023-08-10 04:22 | W.PN.CT ---
Today's Communication / Plan
-
-pod #4
-no issues overnight, no complaints, ambulates without problems
-nsr with v-pacing. Intrinsic rhythm is nsr with CHB and LBBB
-continue Coumadin (got 7.5, 7.5, 5 mg). INR today 2.18 (gave 2.5 mg Coumadin this am per AT, will check INR at 4pm)
-held BB or Amio postop
-diuresed well with 40 iv Lasix on 08/08 (UO 1400/3650)
-encourage IS, OOB, ambulate
-appreciate Cardiology, EP, DM input
Assessment / Plan
-
- Bicuspid AV with severe symptomatic - s/p 25 mm ON-X [facility] AVR; FLACA ligation with a [address] Stewart on 08/06/23, pod #4
- LVEF preop was 65%. Following surgery, no new regional wall motion abnormalities and EF was hyperdynamic at 70% with mild to moderate left ventricular hypertrophy. There was evidence of diastolic dysfunction given the hypertrophic cardio
myopathy. There was no paravalvular leak, there was inherent washing jets that is normal with this table prosthesis. Both mechanical leaflets were moving normally as expected.
- intraop intermittent junctional and sinus bradycardia, did require DDI pacing.
- Diabetes mellitus, type II (HgA1c 7.5)
- Hypertension
- Class 3 obesity with a BMI of greater than 45
- HODAN, on CPAP
- Hyperlipidemia
- Glaucoma
- Vit D deficiency
- Seasonal allergy
- ED
- L carpal tunnel repair
- Multiple eye surgeries
- Non-smoker
- Acute postop blood loss anemia - stable, no transfusion
- Acute postop atelectasis
- Acute postop hypovolemia with subsequent hypervolemia
- Acute postop bradycardia with hypotension, required pacing- held BB and Amio
- Acute postop 1st degree AVB, intermittent Mobitz 1 initially - currently, nsr with CHB and LBBB
Discussed patient care with: Nursing and Care Team
Subjective
Procedure
- s/p 25 mm ON-X [facility] AVR; FLACA ligation with a [address] Stewart on 08/06/23
-
Date of Service: August 10, 2023
Objective Data
-
Lab Results
08/10/23 03:49
PT 24.5 Sec (11.4-14.6) H 08/10/23 03:49
INR 2.18 08/10/23 03:49
APTT 86.2 Sec (23.4-35.0) H 08/09/23 05:40
Vital Signs
Vital Signs
Temp Pulse Resp BP Pulse Ox
98.5 F 70 16 135/50 98
08/10/23 04:02 08/10/23 04:02 08/10/23 04:02 08/10/23 04:02 08/10/23 04:02
CT Intake/Output/Weight
08/09/23 08/09/23 08/10/23
06:59 18:59 06:59
Intake Total 260 / 530.5 520 / 520
Output Total 900 / 1500 2250 / 3650 1400 / 3650
Balance -640 / -969.5 -1730 / -3130 -1400 / -3130
SaO2: 98
Physical Exam
-
General: Awake, Oriented and AOx3
Cardiovascular: Regular rate & rhythm (paced)
Respiratory: Clear, Equal and Decreased Breath Sounds
Sternum: Stable
Incision: Clean, Dry and Intact
Abdomen: soft, nontender, nondistended, + bowel sounds, + BMs
Extremities: Edema +1 b/l
Data Reviewed
-
Lab Results: Results Reviewed
Medications: Active Meds Reviewed
Chest X-Ray: Report Reviewed and Image Reviewed
ECG: Report Reviewed and Image Reviewed
[2023-08-10 04:29] LABS: Blood Urea Nitrogen 25 mg/dl (9-20); Carbon Dioxide 28 mmol/L (22-30); Chloride 104 mmol/L (98-107); Estimated Creatinine Clearance > 125 ml/min; Glucose 131 mg/dl (70-99); Magnesium 2.2 mg/dl (1.6-2.3); Sodium 135 mmol/L (135-145); eGFR > 60.00
[2023-08-10 04:36] LABS: Potassium 3.8 mmol/L (3.5-5.1)
--- NOTE | 2023-08-10 04:40 | ECGCV ---
<Megan Fermin> notified of ECG critical value identified by electronic interpretation on ECG completed on <08/10/23>, at <0413>.
--- NOTE | 2023-08-10 04:41 | PTCARENOTE ---
Pt reassessed. 100% v-paced on the monitor. EKG obtained with CTPA at the bedside. Critical result of complete heart block when pacer settings adjusted. Pacer settings set back to DDD with backup rate of 60. Pt on RA. POX 98%. All surgical sites
stable. Pt voiding independently. All surgical sites stable. Labs drawn and sent. Pt OOB to chair at this time. No c/o pain. Call talamantes within reach.
[2023-08-10] MEDS: COUMADIN 2.5 MG PO (05:56)
[2023-08-10] MEDS: KCL 20 MEQ PO (05:56)
[2023-08-10] MEDS: TYLENOL 1000 MG PO ×2 (05:56→19:54)
--- NOTE | 2023-08-10 07:00 | PTCARENOTE ---
Bedside walking rounds report received. Patient seen on rounds resting in bed. Currently on CPAP mask: see flowrecord for settings. Removed on rounds and patient is on room air. Awake alert and oriented x 3. Denies pain. V paced DDD mode with A for
backup 60bpm: see flow record for settings. See flowrecord for remaining assessments. Plan per ct surgery: wait till Sunday to evaluate for need of PPM due to CHB. See flowrecord for remaining assessments.
--- NOTE | 2023-08-10 07:48 | PN.DE.MGMTRT ---
Insulin Management
- -
08/10/2023: Diabetes Management Consult F/U:
Patient admitted for elective AVR. PMH includes T2DM, Routinely sees [facility]- sees Rishi, was last seen 2 weeks ago. Has Medtronic pump, warranty expires end of July currently researching new pump options. Uses
CGM Dexcom G7, NovoLog insulin, Metformin 1000mg BID, and Victoza that was recently switched to Ozempic 0.25mg weekly but had not started taking it yet.
POD #4 s/p mechanical AVR with FLACA ligation. Transitioned from glycemic protocol to patients insulin pump ON 08/07
Pt Awake, A/O x3, sitting up in chair, pleasant, states he is hungry and is waiting for his to get here so he can order lunch.
Pump settings as follows:
Basal carb ratio Correction Target
12am to 2 AM 2 units/hr 4 13 110 - 120
2AM 2.2 units/hr
6am 2
7am 10
11am 4
24 hour basal total 49 units.
Premeal Glucose range 86 to 156. FBG improved with change of basal setting at 2AM to 2.2. FBG 135 this AM.
Will make no further changes to current pump settings.
Discussed with patient after discharge to start Ozempic as prescribed by endocrine. At that time he should evaluate overnight glucose results for need to return 2AM basal rate to 2 units.
Diabetes History
- -
Type of Diabetes: 2 requiring insulin
Pre-Admission Diabetes Regimen
08/10/23
03:49
Creatinine 0.8
Lab Results
Hemoglobin A1c 7.5 % (4.0-5.6) H 07/13/23 12:07
Insulin Pump Settings
IP Diabetes Regimen
08/09/23 08/09/23 08/09/23
11:35 16:37 22:03
Glucose
POC Glucose 86 112 H 102 H
08/10/23
03:49
Glucose 131 H
POC Glucose
Meal type: Dinner
Meal type: Lunch
Amount consumed: 100%
Amount consumed: 100%
Amount consumed: 100%
Patient Education
[2023-08-10] MEDS: PT'S OWN INSULIN PUMP - NovoLOG 29.6999999999999993 UNIT SC (08:30)
[2023-08-10 08:34] LABS: Glucose - Point of Care 156 mg/dl (70-99)
[2023-08-10] MEDS: BACTROBAN 2% OINTMENT 1 APPLIC NASAL (08:48)
[2023-08-10] MEDS: LOW STRENGTH ASPIRIN 81 MG PO (08:49)
[2023-08-10] MEDS: LIDOCAINE 4% PATCH TOPICAL (08:49)
[2023-08-10] MEDS: LIPITOR 10 MG PO (08:50)
[2023-08-10] MEDS: PROTONIX 40 MG PO (08:50)
[2023-08-10] MEDS: SENOKOT-S 1 TABLET PO ×2 (08:50→19:54)
[2023-08-10] MEDS: ZESTRIL 20 MG PO (08:50)
[2023-08-10] MEDS: ORETIC 12.5 MG PO (08:50)
[2023-08-10] MEDS: NEURONTIN 100 MG PO ×3 (08:50→19:54)
[2023-08-10] MEDS: LASIX 20 MG IV (08:51)
[2023-08-10 11:51] LABS: Glucose - Point of Care 74 mg/dl (70-99)
[2023-08-10] MEDS: PT'S OWN INSULIN PUMP - NovoLOG 13.5 UNIT SC (11:52)
--- NOTE | 2023-08-10 12:00 | PTCARENOTE ---
No acute changes. Vitals stable. Ambulating well room air. V pacing 1:1
--- NOTE | 2023-08-10 12:20 | W.PN.CARDCBS ---
Today's Communication / Plan
-
Continue to monitor conduction system following mechanical AVR 08/06/2023
Maintain temporary pacing wires
Supportive postop care
Continue rehab effort
Impression / Plan
-
Addendum added by Dr. Don Gibson:
Patient seen and examined
Agree with CLARE Lu's notes and assessment
agree with CLARE Lu's plan
exam:
noted underlying rhythm this am underlying bradycardia and mobitz 1 type 2 AV block and now paced POD#1
cor regular
tubes noted
cordis noted
abd soft nt nd
no ext edema
aao x3
non focal neurologically
Assessment:
Bicuspid aortic valve with severe symptomatic status post mechanical AVR, FLACA ligation with clip 08/06/2023
Postop Wenckebach and CHB
Postop anemia
Type 2 diabetes
Hypertension
Hyperlipidemia
Obesity
HODAN on CPAP
Vitamin D deficiency
Multiple prior eye surgeries
ECHO 06/06/23: EF 60 to 65%, severe aortic stenosis with peak/mean gradients 98/59 mmHg, KATHERINE 0.9 to 1.0 cm�, no AR, mild TR, PAP 37 mmHg
IntraOp CEASAR 08/06/2023: Severe , moderate LVH, mild left atrial enlargement, mild TR, very small PFO with intermittent sgko-do-[id number] shunt. Postoperatively valve well-seated with leaflets functioning well, mean gradient of 8 mmHg with no evidence
of paravalvular leak, left atrial appendage clip well-seated with no flow seen through FLACA remnant. EF remained preserved
Plan:
-Status post mechanical AVR and left atrial appendage clip with ligation 08/06/2023
-Doing well postop ambulating around rooms and calderon
-Awaiting for conduction disease to declare itself�continues to be in complete heart block requiring pacing through temporary wires placed at time of surgery
-Patient is not on any AV kim blocking agents
-EP service is aware of patient and we will reassess rhythm over the weekend and make a decision early next week regarding need for permanent pacemaker
-Continue Coumadin, INR therapeutic at 2.18. [If a permanent pacemaker is needed EP ok to perform device implant on Coumadin therapy]
-Continue out of bed/IS as able
-Diabetic nurse practitioner consulted and his insulin pump
-Continue postop care
-Discussed with nursing
Progress Note - Whiting Can Worker
Subjective
Date of Service: August 10, 2023
Seen and examined ambulating in room. He is in good spirits and overall feels well
Objective
Labs:
08/10/23 03:49
08/10/23 03:49
Labs
Hgb 12.0 g/dL (13.0-18.0) L 08/10/23 03:49
Hct 35.1 % (39.0-52.0) L 08/10/23 03:49
Plt Count 236 10^3/uL (130-400) D 08/10/23 03:49
PT 24.5 Sec (11.4-14.6) H 08/10/23 03:49
INR 2.18 08/10/23 03:49
APTT 86.2 Sec (23.4-35.0) H 08/09/23 05:40
Sodium 135 mmol/L (135-145) 08/10/23 03:49
Potassium 3.8 mmol/L (3.5-5.1) 08/10/23 03:49
BUN 25 mg/dl (9-20) H 08/10/23 03:49
Creatinine 0.8 mg/dL (0.7-1.3) 08/10/23 03:49
Glucose 131 mg/dl (70-99) H 08/10/23 03:49
Vital Signs and I&O:
Vital Signs
Temp Pulse Resp BP Pulse Ox
98.1 F 75 18 118/57 96
08/10/23 08:31 08/10/23 11:43 08/10/23 08:31 08/10/23 11:43 08/10/23 11:43
Vital Signs
Temp Pulse Resp BP Pulse Ox
98.1 F 75 18 118/57 96
08/10/23 08:31 08/10/23 11:43 08/10/23 08:31 08/10/23 11:43 08/10/23 11:43
Intake & Output
08/08/23 08/09/23 08/10/23 08/11/23
06:59 06:59 06:59 06:59
Intake Total 673.0 / 673.0 530.5 / 530.5 520 / 520 325 / 325
Output Total 1340 / 1340 1500 / 1500 3650 / 3650 350 / 350
Balance -667.0 / -667.0 -969.5 / -969.5 -3130 / -3130 -25 / -25
Physical Exam
Physical Exam
GEN: NAD, out of bed to chair
HEENT: mmm
LUNGS: Diminished BS B/L, no wheezes
CV: Reg, S1/S2, no murmur, pacer wires present
ABD: soft, BS+, NT/ND
EXT: trace edema of B/L LE
NEURO: Gross non-focal
SKIN: Sternotomy dressing c/d/i
--- NOTE | 2023-08-10 15:00 | CM ---
CM following for DC planning needs.
Met w/ patient at bedside. Patient anticipates that he will remain here thru w/e.
Reviewed DC plan; anticipate DC to home w/ CT Transitional Care RN.
CM to follow.
[2023-08-10] MEDS: TYLENOL PO (15:17)
[2023-08-10] MEDS: NSS IV (15:19)
--- NOTE | 2023-08-10 16:00 | PTCARENOTE ---
No acute changes. Vitals stable. V paced 1:1.
[2023-08-10 16:32] LABS: INR 2.32; PT 25.4 Sec (11.4-14.6)
[2023-08-10] MEDS: PT'S OWN INSULIN PUMP - NovoLOG 18.3999999999999986 UNIT SC (16:33)
[2023-08-10] MEDS: COUMADIN 5 MG PO (18:29)
[2023-08-10] MEDS: NON-FORMULARY ITEM 1 DROP BOTH EYES (18:30)
[2023-08-10 19:54] LABS: Glucose - Point of Care 169 mg/dl (70-99)
--- NOTE | 2023-08-10 20:00 | PTCARENOTE ---
assumed care of patient @ 1900. received pt sitting in chair, AOX3. VSS on RA. 100 percent V paced DDD 60,9,9, 0.8,0.4. trace edema throughout. +PP. Lungs clear on room air, wears CPAP HS. +BM. voiding spontaneously. all surgical sites CDI. R hand
PIV patent. pt up and walking hallway at change of shift
[2023-08-10] MEDS: KCL 40 MEQ PO (23:44)
[2023-08-10] MEDS: PT'S OWN INSULIN PUMP - NovoLOG SC (23:45)
[2023-08-11] VITALS (11 sets, daily range): BP systolic 126–170; BP diastolic 59–71; BMI 46.6
--- NOTE | 2023-08-11 | PTCARENOTE ---
pt resting comfortably, no change in assessment
--- NOTE | 2023-08-11 03:33 | W.PN.CT ---
Today's Communication / Plan
-
-No major issues overnight. Hemodynamically and neurologically intact
-Off all drips
-Pt currently v-paced @ 76 bpm, EKG today shows CHB in the 50's with LBBB
-Cardiology/EP following. For possible PPM early next week per EP
-Maintain temporary Pacer
-Cont. to hold Amiodarone/BB
-Cont. Coumadin, INR 2.35, received 7.5 mg Coumadin yesterday
-Goal INR 2-3 for 3 months, then 1.5-2.5 thereafter
-Diabetes education/management following, has own insulin pump which expires @ end of month
-Encourage use of IS
-OOB/Ambulate
Assessment / Plan
-
- Bicuspid AV with severe symptomatic - s/p 25 mm ON-X [facility] AVR; FLACA ligation with a [address] Stewart on 08/06/23, pod #5
- LVEF preop was 65%. Following surgery, no new regional wall motion abnormalities and EF was hyperdynamic at 70% with mild to moderate left ventricular hypertrophy. There was evidence of diastolic dysfunction given the hypertrophic cardio
myopathy. There was no paravalvular leak, there was inherent washing jets that is normal with this table prosthesis. Both mechanical leaflets were moving normally as expected.
- intraop intermittent junctional and sinus bradycardia, did require DDI pacing.
- Diabetes mellitus, type II (HgA1c 7.5)
- Hypertension
- Class 3 obesity with a BMI of greater than 45
- HODAN, on CPAP
- Hyperlipidemia
- Glaucoma
- Vit D deficiency
- Seasonal allergy
- ED
- L carpal tunnel repair
- Multiple eye surgeries
- Non-smoker
- Acute postop blood loss anemia - stable, no transfusion
- Acute postop atelectasis
- Acute postop hypovolemia with subsequent hypervolemia
- Acute postop bradycardia with hypotension, required pacing- held BB and Amio
- Acute postop 1st degree AVB, intermittent Mobitz 1 initially - currently, nsr with CHB and LBBB
Discussed patient care with: Cardiology, Nursing, Respiratory Therapy, Pharmacy and Care Team
Subjective
Procedure
- s/p 25 mm ON-X [facility] AVR; FLACA ligation with a [address] Stewart on 08/06/23
-
Date of Service: August 11, 2023
Pt c/o incisional pain, otherwise feels well. Ambulating halls without difficulty
Objective Data
-
Lab Results
08/10/23 03:49
PT 25.4 Sec (11.4-14.6) H 08/10/23 16:08
INR 2.32 08/10/23 16:08
APTT 86.2 Sec (23.4-35.0) H 08/09/23 05:40
Vital Signs
Vital Signs
Temp Pulse Resp BP Pulse Ox
98.8 F 72 16 133/69 95
08/11/23 01:04 08/11/23 01:04 08/11/23 01:04 08/10/23 23:45 08/11/23 01:04
CT Intake/Output/Weight
08/10/23 08/10/23 08/11/23
06:59 18:59 06:59
Intake Total 1105 / 1585 480 / 1585
Output Total 1400 / 3650 1750 / 2050 300 / 2050
Balance -1400 / -3130 -645 / -465 180 / -465
SaO2: 95 (RA)
Physical Exam
-
General: Awake, AOx3 and Other
Cardiovascular: Regular rate & rhythm (v-paced @ 76 bpm), No Murmurs and No Rub
Respiratory: Decreased Breath Sounds (at bases, otherwise clear)
Sternum: Stable
Incision: Clean, Dry, Intact and Dressing Intact
Extremities: Other (+trace edema)
Data Reviewed
-
Lab Results: Results Reviewed
Medications: Active Meds Reviewed
Chest X-Ray: Report Reviewed and Image Reviewed
ECG: Report Reviewed and Image Reviewed
--- NOTE | 2023-08-11 05:18 | PTCARENOTE ---
pacer box temporarily paused by CTPA for EKG - pt with long pause until intrinsic rhythm started - EKG showed complete heart block. pacer placed back to previous settings.
[2023-08-11 05:28] LABS: INR 2.35; PT 25.6 Sec (11.4-14.6)
[2023-08-11 05:49] LABS: Blood Urea Nitrogen 21 mg/dl (9-20); Calcium 9.4 mg/dl (8.4-10.2); Carbon Dioxide 28 mmol/L (22-30); Chloride 103 mmol/L (98-107); Estimated Creatinine Clearance > 125 ml/min; Glucose 88 mg/dl (70-99); Magnesium 2.1 mg/dl (1.6-2.3); Potassium 4.1 mmol/L (3.5-5.1); Sodium 136 mmol/L (135-145); eGFR > 60.00
[2023-08-11] MEDS: PT'S OWN INSULIN PUMP - NovoLOG 22.5 UNIT SC (07:15)
[2023-08-11 07:20] LABS: Glucose - Point of Care 134 mg/dl (70-99)
[2023-08-11] MEDS: TYLENOL 1000 MG PO ×3 (07:21→20:43)
--- NOTE | 2023-08-11 08:00 | PTCARENOTE ---
pt received from previous RN, oriented, OOB in chair. 100% V-paced on the monitor, HR 70s-80s. A&V wires, DDD . underlying CHB. SBP 150s. palpable pulses. pt on RA, 99% POX. lungs diminished. IS encouraged. pt abdomen round, s/n, denies n/v.
diet tolerated well. pt has own insulin pump. pt states had BM yesterday. ambulates independently. surgical sites c/d/i. PIV. see worklist for VS, I&O, and assessment.
[2023-08-11] MEDS: LIDOCAINE 4% PATCH TOPICAL (08:31)
[2023-08-11] MEDS: NEURONTIN 100 MG PO ×3 (08:40→20:43)
[2023-08-11] MEDS: ORETIC 12.5 MG PO (08:40)
[2023-08-11] MEDS: LOW STRENGTH ASPIRIN 81 MG PO (08:40)
[2023-08-11] MEDS: LIPITOR 10 MG PO (08:40)
[2023-08-11] MEDS: SENOKOT-S 1 TABLET PO ×2 (08:40→20:43)
[2023-08-11] MEDS: PROTONIX 40 MG PO (08:40)
[2023-08-11] MEDS: KCL 10 MEQ PO (08:40)
[2023-08-11] MEDS: ZESTRIL 20 MG PO (08:40)
[2023-08-11] MEDS: LASIX 20 MG PO (08:40)
--- NOTE | 2023-08-11 12:00 | PTCARENOTE ---
pt VSS, no changes in assessment. pt ambulating in hallway independently. no c/o pain. voids in urinal.
--- NOTE | 2023-08-11 12:21 | W.PN.CARDCBS ---
Today's Communication / Plan
-
Stable cardiology status but remains paced with no underlying rhythm
May need permanent pacer on 08/12
Impression / Plan
-
Assessment:
Bicuspid aortic valve with severe symptomatic status post mechanical AVR, FLACA ligation with clip 08/06/2023
Postop Wenckebach and CHB
Postop anemia
Type 2 diabetes
Hypertension
Hyperlipidemia
Obesity
HODAN on CPAP
Vitamin D deficiency
Multiple prior eye surgeries
ECHO 06/06/23: EF 60 to 65%, severe aortic stenosis with peak/mean gradients 98/59 mmHg, KATHERINE 0.9 to 1.0 cm�, no AR, mild TR, PAP 37 mmHg
IntraOp CEASAR 08/06/2023: Severe , moderate LVH, mild left atrial enlargement, mild TR, very small PFO with intermittent dajv-rv-ohciy shunt. Postoperatively valve well-seated with leaflets functioning well, mean gradient of 8 mmHg with no evidence
of paravalvular leak, left atrial appendage clip well-seated with no flow seen through FLACA remnant. EF remained preserved
Plan:
He continues to do very well but remains paced with no underlying rhythm
We will continue to follow but might need permanent pacer on 08/12.
Discussed with CT surgery PA's
Progress Note - Legislative Director
Subjective
Date of Service: August 11, 2023
No complaints
Objective
Labs:
08/10/23 03:49
08/11/23 04:33
Labs
Hgb 12.0 g/dL (13.0-18.0) L 08/10/23 03:49
Hct 35.1 % (39.0-52.0) L 08/10/23 03:49
Plt Count 236 10^3/uL (130-400) D 08/10/23 03:49
PT 25.6 Sec (11.4-14.6) H 08/11/23 04:33
INR 2.35 08/11/23 04:33
APTT 86.2 Sec (23.4-35.0) H 08/09/23 05:40
Sodium 136 mmol/L (135-145) 08/11/23 04:33
Potassium 4.1 mmol/L (3.5-5.1) 08/11/23 04:33
BUN 21 mg/dl (9-20) H 08/11/23 04:33
Creatinine 0.7 mg/dL (0.7-1.3) 08/11/23 04:33
Glucose 88 mg/dl (70-99) 08/11/23 04:33
Vital Signs and I&O:
Vital Signs
Temp Pulse Resp BP Pulse Ox
98.4 F 79 16 150/64 99
08/11/23 08:00 08/11/23 09:00 08/11/23 08:00 08/11/23 08:11 08/11/23 08:00
Vital Signs
Temp Pulse Resp BP Pulse Ox
98.4 F 79 16 150/64 99
08/11/23 08:00 08/11/23 09:00 08/11/23 08:00 08/11/23 08:11 08/11/23 08:00
Intake & Output
08/09/23 08/10/23 08/11/23 08/12/23
06:59 06:59 06:59 06:59
Intake Total 530.5 / 530.5 520 / 520 1585 / 1585
Output Total 1500 / 1500 3650 / 3650 2750 / 2750 1125 / 1125
Balance -969.5 / -969.5 -3130 / -3130 -1165 / -1165 -1125 / -1125
Physical Exam
Physical Exam
General: Well developed, well nourished in NAD.
Neck: Supple, no JVD, HJR, carotids +2 B/L, no bruits bilaterally.
Heart: Non displaced PMI, RRR, no murmurs, No S3, S4, no rubs.
Lungs: Scattered rhonchi
Sternal dressings noted
Extremities: No clubbing, cyanosis or edema bilaterally.
Neuro: Grossly nonfocal, awake, alert and oriented x3.
[2023-08-11 13:11] LABS: Glucose - Point of Care 95 mg/dl (70-99)
[2023-08-11] MEDS: PT'S OWN INSULIN PUMP - NovoLOG SC ×2 (13:12→23:19)
[2023-08-11] MEDS: NSS IV (13:48)
[2023-08-11 14:06] LABS: Glucose - Point of Care 122 mg/dl (70-99)
--- NOTE | 2023-08-11 16:00 | PTCARENOTE ---
pt VSS, no changes in assessment. pt resting between care.
[2023-08-11] MEDS: COUMADIN 7.5 MG PO (17:02)
[2023-08-11] MEDS: PT'S OWN INSULIN PUMP - NovoLOG 12.5 UNIT SC (17:04)
[2023-08-11 17:05] LABS: Glucose - Point of Care 174 mg/dl (70-99)
[2023-08-11] MEDS: NON-FORMULARY ITEM 1 DROP BOTH EYES (17:06)
--- NOTE | 2023-08-11 20:15 | PTCARENOTE ---
Assumed care of patient at 1900. Patient found OOB in chair with spouse at bedside at time of assessment. Patient is AOx4, follows commands appropriately, moves all extremities. Lung sounds are diminished throughout patient is on RA saO2 at 94%.
Heart sounds have a regular rate and rhythm, there is an audible click on auscultation, patient is 100% v paced on the monitor. Patient has no edema noted and normal palpable pulses. Patient has a round obese abdomen with active BS throughout
patient reports last BM yesterday. There is a sternal incision that is approx with surg ahdesive PASSENGER AGENT. Patient has R Hand PIV available for intermittent infusion. High blood pressure noted following ambulation will reassess later to see if BP
improves. All other VSS. Patient has no complaints at this time.
[2023-08-11] MEDS: APRESOLINE 10 MG IV (22:02)
[2023-08-11 23:10] LABS: Glucose - Point of Care 135 mg/dl (70-99)
[2023-08-12] VITALS (7 sets, daily range): BP systolic 134–153; BP diastolic 57–88; BMI 46.3
--- NOTE | 2023-08-12 01:23 | PTCARENOTE ---
Patient reassessed. VSS. Remains 100% vpaced on the monitor. No complaints at this time.
--- NOTE | 2023-08-12 04:09 | W.PN.CT ---
Today's Communication / Plan
-
-No major issues overnight. Hemodynamically and neurologically intact
-Off all drips
-Pt currently v-paced @ 76 bpm, EKG today shows CHB in the 50's with LBBB
-Cardiology/EP following. For possible PPM early next week per EP
-Maintain temporary Pacer
-Cont. to hold Amiodarone/BB
-Cont. Coumadin, INR 3.03, was 2.35 yesterday, received 7.5 mg Coumadin yesterday. Consider 5mg Coumadin today
-Goal INR 2-3 for 3 months, then 1.5-2.5 thereafter
-Diabetes education/management following, has own insulin pump which expires @ end of month
-Encourage use of IS
-OOB/Ambulate
Assessment / Plan
-
- Bicuspid AV with severe symptomatic - s/p 25 mm ON-X [facility] AVR; FLACA ligation with a [address] Stewart on 08/06/23, pod #6
- LVEF preop was 65%. Following surgery, no new regional wall motion abnormalities and EF was hyperdynamic at 70% with mild to moderate left ventricular hypertrophy. There was evidence of diastolic dysfunction given the hypertrophic cardio
myopathy. There was no paravalvular leak, there was inherent washing jets that is normal with this table prosthesis. Both mechanical leaflets were moving normally as expected.
- intraop intermittent junctional and sinus bradycardia, did require DDI pacing.
- Diabetes mellitus, type II (HgA1c 7.5)
- Hypertension
- Class 3 obesity with a BMI of greater than 45
- HODAN, on CPAP
- Hyperlipidemia
- Glaucoma
- Vit D deficiency
- Seasonal allergy
- ED
- L carpal tunnel repair
- Multiple eye surgeries
- Non-smoker
- Acute postop blood loss anemia - stable, no transfusion
- Acute postop atelectasis
- Acute postop hypovolemia with subsequent hypervolemia
- Acute postop bradycardia with hypotension, required pacing- held BB and Amio
- Acute postop 1st degree AVB, intermittent Mobitz 1 initially - currently, nsr with CHB and LBBB
Discussed patient care with: Cardiology, Nursing, Respiratory Therapy, Pharmacy and Care Team
Subjective
Procedure
- s/p 25 mm ON-X [facility] AVR; FLACA ligation with a [address] Stewart on 08/06/23
-
Date of Service: August 12, 2023
Pt c/o mild incisional pain, otherwise feels well. Ambulating halls without difficulty
Objective Data
-
Lab Results
08/10/23 03:49
PT 25.6 Sec (11.4-14.6) H 08/11/23 04:33
INR 2.35 08/11/23 04:33
APTT 86.2 Sec (23.4-35.0) H 08/09/23 05:40
Vital Signs
Vital Signs
Temp Pulse Resp BP Pulse Ox
98.2 F 79 20 146/68 96
08/11/23 23:00 08/11/23 23:02 08/11/23 23:00 08/11/23 23:02 08/11/23 23:00
CT Intake/Output/Weight
08/11/23 08/11/23 08/12/23
06:59 18:59 06:59
Intake Total 480 / 1585
Output Total 1000 / 2750 2074
Balance -520 / -1165 -2074
SaO2: 96 (RA)
Physical Exam
-
General: Awake, Oriented and AOx3
Cardiovascular: Regular rate & rhythm (v-paced @ 78 bpm), No Murmurs, No Rub and No Gallop
Respiratory: Clear and Decreased Breath Sounds
Sternum: Stable
Incision: Clean, Dry, Intact and Dressing Intact
Extremities: Other (+trace edema)
Data Reviewed
-
Lab Results: Results Reviewed
Medications: Active Meds Reviewed
Chest X-Ray: Report Reviewed and Image Reviewed
ECG: Report Reviewed and Image Reviewed
--- NOTE | 2023-08-12 04:30 | ECGCV ---
Liz Brandt notified of ECG critical value identified by electronic interpretation on ECG completed on 08/12/23, at 0429.
[2023-08-12 04:44] LABS: INR 3.03; PT 31.4 Sec (11.4-14.6)
[2023-08-12 05:03] LABS: Blood Urea Nitrogen 25 mg/dl (9-20); Calcium 9.8 mg/dl (8.4-10.2); Carbon Dioxide 25 mmol/L (22-30); Chloride 102 mmol/L (98-107); Estimated Creatinine Clearance > 125 ml/min; Glucose 175 mg/dl (70-99); Potassium 4.2 mmol/L (3.5-5.1); Sodium 136 mmol/L (135-145); eGFR > 60.00
--- NOTE | 2023-08-12 06:36 | PTCARENOTE ---
Patient reassessed. VSS. AM labs obtained. CT PA at bedside to adjust PM settings to assess underlying rhythm. Patient appears to still be in a complete heart block. Previous PM settings resumed. Patient remains 100% vpaced at this time. Patient is
stable.
[2023-08-12] MEDS: TYLENOL 1000 MG PO ×3 (07:06→22:21)
[2023-08-12 08:00] LABS: Glucose - Point of Care 165 mg/dl (70-99)
[2023-08-12] MEDS: PT'S OWN INSULIN PUMP - NovoLOG 37.8999999999999986 UNIT SC (08:00)
[2023-08-12] MEDS: LIDOCAINE 4% PATCH TOPICAL (08:00)
--- NOTE | 2023-08-12 08:00 | PTCARENOTE ---
pt received from previous RN, oriented, OOB in chair. 100% V-paced on the monitor, HR 70s-80s. A&V wires, DDD 60/12/23. underlying CHB. SBP 140s. palpable pulses. +1 LE edema, trace L edema. pt on RA, 97% POX. lungs clear/diminished. IS encouraged. pt
abdomen round, s/n, denies n/v. diet tolerated well. pt has own insulin pump. pt states had BM last night. ambulates independently. surgical sites c/d/i. PIV. see worklist for VS, I&O, and assessment.
[2023-08-12] MEDS: LOW STRENGTH ASPIRIN 81 MG PO (08:29)
[2023-08-12] MEDS: LIPITOR 10 MG PO (08:29)
[2023-08-12] MEDS: SENOKOT-S 1 TABLET PO ×2 (08:29→20:29)
[2023-08-12] MEDS: ORETIC 12.5 MG PO (08:29)
[2023-08-12] MEDS: ZESTRIL 20 MG PO (08:29)
[2023-08-12] MEDS: NEURONTIN 100 MG PO ×3 (08:29→22:22)
[2023-08-12] MEDS: PROTONIX 40 MG PO (08:29)
--- NOTE | 2023-08-12 12:07 | W.PN.CARDCBS ---
Today's Communication / Plan
-
Permanent pacer on 08/12 if remains in complete heart block and INR has not increased significantly
Hold Coumadin
Impression / Plan
-
Assessment:
Bicuspid aortic valve with severe symptomatic status post mechanical AVR, FLACA ligation with clip 08/06/2023
Postop Wenckebach and CHB
Postop anemia
Type 2 diabetes
Hypertension
Hyperlipidemia
Obesity
HODAN on CPAP
Vitamin D deficiency
Multiple prior eye surgeries
ECHO 06/06/23: EF 60 to 65%, severe aortic stenosis with peak/mean gradients 98/59 mmHg, KATHERINE 0.9 to 1.0 cm�, no AR, mild TR, PAP 37 mmHg
IntraOp CEASAR 08/06/2023: Severe , moderate LVH, mild left atrial enlargement, mild TR, very small PFO with intermittent qzgy-vy-fjagl shunt. Postoperatively valve well-seated with leaflets functioning well, mean gradient of 8 mmHg with no evidence
of paravalvular leak, left atrial appendage clip well-seated with no flow seen through FLACA remnant. EF remained preserved
Plan:
He continues with heart block with ventricular escape rhythm when pacer is turned off
Discussed with CT surgery and we will plan on permanent pacer on 08/12 if INR has not increased significantly
Hold Coumadin
Discussed with EP
Progress Note - Plate Cutter
Subjective
Date of Service: August 12, 2023
No complaints
Objective
Labs:
08/10/23 03:49
08/12/23 04:11
Labs
Hgb 12.0 g/dL (13.0-18.0) L 08/10/23 03:49
Hct 35.1 % (39.0-52.0) L 08/10/23 03:49
Plt Count 236 10^3/uL (130-400) D 08/10/23 03:49
PT Cancelled 08/12/23 12:00
INR Cancelled 08/12/23 12:00
APTT 86.2 Sec (23.4-35.0) H 08/09/23 05:40
Sodium 136 mmol/L (135-145) 08/12/23 04:11
Potassium 4.2 mmol/L (3.5-5.1) 08/12/23 04:11
BUN 25 mg/dl (9-20) H 08/12/23 04:11
Creatinine 0.8 mg/dL (0.7-1.3) 08/12/23 04:11
Glucose 175 mg/dl (70-99) H 08/12/23 04:11
Vital Signs and I&O:
Vital Signs
Temp Pulse Resp BP Pulse Ox
98.4 F 82 18 146/76 97
08/12/23 08:00 08/12/23 08:00 08/12/23 08:00 08/12/23 07:57 08/12/23 09:18
Vital Signs
Temp Pulse Resp BP Pulse Ox
98.4 F 82 18 146/76 97
08/12/23 08:00 08/12/23 08:00 08/12/23 08:00 08/12/23 07:57 08/12/23 09:18
Intake & Output
08/10/23 08/11/23 08/12/23 08/13/23
06:59 06:59 06:59 06:59
Intake Total 520 / 520 1585 / 1585 480 / 480 100 / 100
Output Total 3650 / 3650 2750 / 2750 3025 / 3025
Balance -3130 / -3130 -1165 / -1165 -2545 / -2545 100 / 100
Physical Exam
Physical Exam
General: Well developed, well nourished in NAD.
Neck: Supple, no JVD, HJR, carotids +2 B/L, no bruits bilaterally.
Heart: Non displaced PMI, RRR, no murmurs, No S3, S4, no rubs.
Lungs: Scattered rhonchi
Sternal dressings noted
Extremities: No clubbing, cyanosis or edema bilaterally.
Neuro: Grossly nonfocal, awake, alert and oriented x3.
[2023-08-12 12:15] LABS: Glucose - Point of Care 111 mg/dl (70-99)
--- NOTE | 2023-08-12 12:15 | PTCARENOTE ---
pt VSS, no changes in assessment. ambulating in hallways.
[2023-08-12] MEDS: PT'S OWN INSULIN PUMP - NovoLOG 16.5 UNIT SC (12:35)
[2023-08-12] MEDS: NSS IV (13:01)
[2023-08-12 14:47] LABS: INR 2.95; PT 30.7 Sec (11.4-14.6)
--- NOTE | 2023-08-12 16:30 | PTCARENOTE ---
pt VSS, no changes in assessment. PA aware of INR. new LAC PIV placed. ambulates in hallway. voids. no c/o pain.
[2023-08-12] MEDS: NON-FORMULARY ITEM 1 DROP BOTH EYES (16:32)
[2023-08-12 17:21] LABS: Glucose - Point of Care 108 mg/dl (70-99)
[2023-08-12] MEDS: PT'S OWN INSULIN PUMP - NovoLOG 24.6999999999999993 UNIT SC (17:21)
--- NOTE | 2023-08-12 20:00 | PTCARENOTE ---
report received from previous RN, walking rounds done. pt in chair, AAOx4. pt denies any pain. VSS. pt V.paced on monitor via epicardial wires. HR 80's. POX 95% on room air. IS encouraged. pt voids without difficulty. PIV intact and patent. all
surgical sites stable. see worklist for full assessment, VS, and interventions. pt resting comfortably.
[2023-08-12 22:18] LABS: Glucose - Point of Care 196 mg/dl (70-99)
[2023-08-12] MEDS: PT'S OWN INSULIN PUMP - NovoLOG 8.59999999999999964 UNIT SC (22:22)
[2023-08-13] VITALS (15 sets, daily range): BP systolic 104–159; BP diastolic 46–101; BMI 46.0
[2023-08-13 02:05] LABS: Hematocrit 36.3 % (39.0-52.0); Hemoglobin 12.5 g/dL (13.0-18.0); Mean Corp Hgb Conc. 34.4 g/dL (33.0-37.0); Mean Corpuscular Hgb 31.3 pg (27.0-31.0); Mean Corpuscular Volume 90.8 fL (80.0-94.0); Mean Platelet Volume 9.6 fL (7.4-10.4); Platelet Count 316 10^3/uL (130-400); Red Cell Dist. Width 13.1 % (11.5-14.5); White Blood Cell Count 13.4 10^3/uL (4.8-10.8)
[2023-08-13 02:17] LABS: INR 2.62; PT 27.9 Sec (11.4-14.6)
--- NOTE | 2023-08-13 03:50 | W.PN.CT ---
Today's Communication / Plan
-
-No major issues overnight. Hemodynamically and neurologically intact
-Off all drips
-Pt currently v-paced @ 76 bpm, EKG today shows CHB in the 40's with LBBB
-Cardiology/EP following. For possible PPM placement today. EP following, currently NPO
-Maintain temporary Pacer
-Cont. to hold Amiodarone/BB
-Cont. Coumadin, INR 2.26, was 3.03 yesterday. Coumadin was held yesterday
-Goal INR 2-3 for 3 months, then 1.5-2.5 thereafter
-Diabetes education/management following, has own insulin pump which expires @ end of month
-Encourage use of IS
-OOB/Ambulate
-Home likely tomorrow
Assessment / Plan
-
- Bicuspid AV with severe symptomatic - s/p 25 mm ON-X [facility] AVR; FLACA ligation with a [address] Stewart on 08/06/23, pod #7
- LVEF preop was 65%. Following surgery, no new regional wall motion abnormalities and EF was hyperdynamic at 70% with mild to moderate left ventricular hypertrophy. There was evidence of diastolic dysfunction given the hypertrophic cardio
myopathy. There was no paravalvular leak, there was inherent washing jets that is normal with this table prosthesis. Both mechanical leaflets were moving normally as expected.
- intraop intermittent junctional and sinus bradycardia, did require DDI pacing.
- Diabetes mellitus, type II (HgA1c 7.5)
- Hypertension
- Class 3 obesity with a BMI of greater than 45
- HODAN, on CPAP
- Hyperlipidemia
- Glaucoma
- Vit D deficiency
- Seasonal allergy
- ED
- L carpal tunnel repair
- Multiple eye surgeries
- Non-smoker
- Acute postop blood loss anemia - stable, no transfusion
- Acute postop atelectasis
- Acute postop hypovolemia with subsequent hypervolemia
- Acute postop bradycardia with hypotension, required pacing- held BB and Amio
- Acute postop 1st degree AVB, intermittent Mobitz 1 initially - currently, nsr with CHB and LBBB
Discussed patient care with: Cardiology, Nursing, Respiratory Therapy, Pharmacy and Care Team
Subjective
Procedure
- s/p 25 mm ON-X [facility] AVR; FLACA ligation with a [address] Stewart on 08/06/23
-
Date of Service: August 13, 2023
Pt c/o mild incisional pain, otherwise feels well. Ambulating halls without difficulty
Objective Data
-
Lab Results
08/13/23 02:00
08/12/23 04:11
PT 27.9 Sec (11.4-14.6) H 08/13/23 02:00
INR 2.62 08/13/23 02:00
APTT 86.2 Sec (23.4-35.0) H 08/09/23 05:40
Vital Signs
Vital Signs
Temp Pulse Resp BP Pulse Ox
98.1 F 87 18 152/59 98
08/12/23 22:15 08/12/23 22:15 08/12/23 22:15 08/12/23 22:15 08/12/23 22:15
CT Intake/Output/Weight
08/12/23 08/12/23 08/13/23
06:59 18:59 06:59
Intake Total 480 / 480 100 / 350 250 / 350
Output Total 950 / 3025 1175 / 1175
Balance -470 / -2545 -1075 / -825 250 / -825
SaO2: 98 (RA)
Physical Exam
-
General: Awake, Oriented and AOx3
Cardiovascular: Regular rate & rhythm (v-paced @ 80 bpm)
Respiratory: Decreased Breath Sounds (at bases, otherwise clear)
Sternum: Stable
Incision: Clean, Dry, Intact and Dressing Intact
Extremities: Other (+trace edema)
Data Reviewed
-
Lab Results: Results Reviewed
Medications: Active Meds Reviewed
Chest X-Ray: Report Reviewed and Image Reviewed
ECG: Report Reviewed and Image Reviewed
--- NOTE | 2023-08-13 05:00 | PTCARENOTE ---
pt VSS, no changes in assessment overnight. V.paced on monitor. POX 96% on room air. AM labs drawn and sent. EKG completed w CT PA at bedside. all surgical sites stable. weight obtained. pt resting between care.
[2023-08-13] MEDS: TYLENOL PO ×3 (07:01→14:26)
--- NOTE | 2023-08-13 08:07 | PTCARENOTE ---
Patient received from nightshift nurse. Patient is alert and oriented x4, pleasant. Denies pain/discomfort. 100% V paced. V wire maintained with the settings: AAI. HR 60, mA 9, sensitivity 0.4. Underlying CHB. HR 70s-80s. Audible heart tones, click
auscultated. BP 159/72. Palpable pulses. Bilateral LE +1 edema. PIV maintained. RA. Oxygen saturation 97%. Upon auscultation, bilateral base breath sounds are diminished. IS 3000. Abdomen round, obese. +BS. Per patient, had a BM yesterday. Voids
spontaneously. Ambulating in room and in hallway independently. Plan to get PPM placement today, will keep patient updated on the time.
[2023-08-13] MEDS: LIDOCAINE 4% PATCH TOPICAL (08:50)
--- NOTE | 2023-08-13 08:59 | PN.DE.MGMTRT ---
Insulin Management
- -
08/13/2023: Diabetes Management Consult F/U:
Patient admitted for elective AVR. PMH includes T2DM, Routinely sees [facility]- sees Rishi, was last seen 2 weeks ago. Has Medtronic pump, warranty expires end of July currently researching new pump options. Uses
CGM Dexcom G7, NovoLog insulin, Metformin 1000mg BID, and Victoza that was recently switched to Ozempic 0.25mg weekly but had not started taking it yet.
POD #7 s/p mechanical AVR with FLACA ligation. Transitioned from glycemic protocol to patients insulin pump on 08/07
Pt Awake, A/O x3, sitting up in chair, pleasant, currently NPO for possible PPM placement today.
Pump settings as follows:
Basal carb ratio Correction Target
12am to 2 AM 2 units/hr 4 13 110 - 120
2AM 2.2 units/hr
6am 2
7am 10
11am 4
24 hour basal total 49 units.
Glucose stable and in range w/o elevations, premeal 108 to 165. Will make no further changes to current pump settings.
Discussed with patient after discharge to start Ozempic as prescribed by bolt machine operator. At that time he should evaluate overnight glucose results for need to return 2AM basal rate to 2 units.
Diabetes History
- -
Type of Diabetes: 2 requiring insulin
Pre-Admission Diabetes Regimen
Lab Results
Hemoglobin A1c 7.5 % (4.0-5.6) H 07/13/23 12:07
Insulin Pump Settings
IP Diabetes Regimen
08/12/23 08/12/23 08/12/23
12:14 17:20 22:17
POC Glucose 111 H 108 H 196 H
Meal type: Dinner
Meal type: Breakfast
Amount consumed: 100%
Amount consumed: 100%
Patient Education
[2023-08-13] MEDS: PT'S OWN INSULIN PUMP - NovoLOG SC (09:06)
[2023-08-13 09:07] LABS: Glucose - Point of Care 177 mg/dl (70-99)
[2023-08-13] MEDS: NEURONTIN 100 MG PO ×2 (09:08→22:20)
[2023-08-13] MEDS: LIPITOR 10 MG PO (09:08)
[2023-08-13] MEDS: ORETIC 12.5 MG PO (09:08)
[2023-08-13] MEDS: ZESTRIL 20 MG PO (09:08)
[2023-08-13] MEDS: PROTONIX 40 MG PO (09:08)
[2023-08-13] MEDS: LOW STRENGTH ASPIRIN 81 MG PO (09:08)
[2023-08-13] MEDS: SENOKOT-S 1 TABLET PO ×2 (09:09→20:31)
--- NOTE | 2023-08-13 10:18 | CM ---
Reviewed chart. Met with Mr. Saldivar to review discharge plans. He states he is feeling well. He states he is going for a PPM today and he is hoping to go home soon. He has been ambulating in the hallways today. Prior to admission he resides with
his spouse in a two story home with two steps to enter. He has a full flight of steps to get to bedroom. He has a full bathroom on each level. He has a CPAP Machine at home and no other DME in the home. He has a prescription plan. His spouse
works during the day but will be home in the evening. He has supportive friends who he can call if he needs anything. We reviewed a home visit by the Cardiothoracic Transitional Care Nurse. Medial work-up in progress. The discharge plan is to
return home with is spouse a home visit by the Cardiothoracic Transitional Care Nurse when medically stable.
--- NOTE | 2023-08-13 11:46 | PTCARENOTE ---
Vital signs stable. Denies pain/discomfort. 100% V-paced via epicardial wires. A&V wires maintained with settings: AAI. HR 60, mA 9, sensitivity 0.4. HR 70s-80s. BP 122/55. RA. Oxygen saturation 96%. Ambulating in room and hallway independently.
Voiding spontaneously. Patient is anxiously awaiting PPM procedure.
[2023-08-13 12:11] LABS: Glucose - Point of Care 179 mg/dl (70-99)
[2023-08-13] MEDS: PT'S OWN INSULIN PUMP - NovoLOG 6.90000000000000036 UNIT SC (12:21)
--- NOTE | 2023-08-13 14:25 | PTCARENOTE ---
pt prepped w CHG prior to PPM placement. Clean gown applied.
[2023-08-13] MEDS: NSS IV (14:26)
--- NOTE | 2023-08-13 15:21 | PTCARENOTE ---
Vital signs stable. 100% V-paced via epicardial wires. A&V wires maintained with settings: AAI. HR 60, mA 9, sensitivity 0.4. HR 70s-80s. BP 144/66. RA. Oxygen saturation 97%. RN Hollis Texted pathology laboratory aides teacher charge nurse. Ambulating in room and hallway
independently. Voiding spontaneously. Patient is anxiously awaiting PPM procedure.
[2023-08-13 15:22] LABS: Glucose - Point of Care 141 mg/dl (70-99)
--- NOTE | 2023-08-13 15:43 | PTCARENOTE ---
RN gave report to the clinical laboratory technologist. Patient picked up from the clinical laboratory technologist. Bedside report given.
[2023-08-13] MEDS: NEURONTIN PO (17:11)
--- NOTE | 2023-08-13 17:37 | ITS.CL.PACE ---
Teachers' Assistant - Pacemaker Implant
Pacemaker Implant
Procedure Report:
PACEMAKER IMPLANT REPORT
Primary osteopathic neurologist: Dr Michaela Abreu
Cardiothoracic surgeon: Dr. Hieu Stewart
Date of Procedure: August 13, 2023
Procedure:
Implantation of dual-chamber permanent pacemaker utilizing the left bundle branch for conduction system pacing
Indication/Diagnosis:
Non-reversible symptomatic bradycardia due to third degree atrioventricular block which has persisted several days after mechanical AVR and left atrial appendage after clipping August 06, 2023
After informed consent was obtained, 'time out' was called and confirmed, the patient was prepped and draped in a sterile fashion. Lidocaine with epi was used for local anesthesia. Central venous access was obtained via subclavian venipuncture. An
incision was made along the left chest and a pre-pectoral pocket was formed. Using a Seldinger technique and peel-away sheaths, the pacing leads were placed under fluoroscopic guidance.
Fluoroscopy was used to determine likely anatomic site for left bundle branch pacing. The Medtronic C315 sheath was used to deliver the Medtronic 3830 Selectsecure pacing lead with the helix exposed just exposed from the sheath tip during continuous
monitoring when pacemapping the septum during gentle clockwise rotation to obtain a paced QRS morphology of a W pattern in lead V1. Once the suspected optimal site was identified, lead deployment was performed with several rapid rotations as paced
QRS morphology was intermittently monitored until a paced QRS complex in lead V1 demonstrated development of an R wave (qR or rSR).
Unipolar pacing impedance dropped by approximately 200 ohms suggesting it had reached the left ventricular subendocardial.
Stable VEgm injury current is present throughout lead position and at end of case.
Final unipolar pacing impedance is 1000 Ohms
Unipolar pacing threshold is stable at 1 V @ 0.4 ms.
The patient had pre-existing wide QRS from epicardial RV pace dependence.
Final conduction system paced QRS complex duration is 97] ms
LVAT is 69 ms and peak V5 -> peak V1 timing is 54 ms
Right atrial lead was placed at the RAA.
Once testing (see below) showed adequate and stable function, the leads were secured using the suture sleeves. The pocket was liberally irrigated with antibiotic solution. The leads were connected to the generator header and the leads and
generator were placed within the pocket. Fluoroscopy confirmed stable lead position. The pocket was closed in the typical fashion.
Antibiotic pouch was used
Fluoroscopy was used to guide lead placement.
IMPLANTS:
Medtronic [id number], SN: [id number], Left Pectoral
RA: Medtronic 5076-45, SN: [id number], RAA
RV: Medtronic 3830 , SN:[id number], Interventricular septum at LBB
DEVICE TESTING:
Sensing: RA 1.5 mV, RV no escape
Capture: RA 1.25 V@0.4ms, RV 0.75 V@0.4ms
Ohms: RA 456, RV 798
FINAL PROGRAMMING
Richard Pacing: DDD 60-130 ppm
COMPLICATIONS:
None
CONCLUSIONS:
1: Successful implant of dual chamber permanent pacemaker utilizing Left Bundle Branch conduction system capture for pacing.
RECOMMENDATIONS:
-No need for epicardial wires moving forward
-Okay to resume warfarin anticoagulation
-Will initiate beta-rachele, Toprol-XL 25 mg daily
-Post-op care (tele, CXR, IV abx)
-In-Office wound check in 5-7 days
Copy to:
Dr Michaela Abreu
Dr. Hieu Stewart
[2023-08-13 18:19] LABS: Glucose - Point of Care 117 mg/dl (70-99)
[2023-08-13] MEDS: PT'S OWN INSULIN PUMP - NovoLOG 23.3999999999999986 UNIT SC (18:29)
[2023-08-13] MEDS: NON-FORMULARY ITEM 1 DROP BOTH EYES (18:33)
--- NOTE | 2023-08-13 18:46 | PTCARENOTE ---
Patient received from blood and plasma laboratory assistant. Patient is alert and oriented x4, pleasant. Denies pain/discomfort. 100% V-paced. HR 80s-90s. BP 155/60. RA. Oxygen saturation 90% - 2L NC applied with oxygen saturation 98%. L anterior chest wall PPM incision has an
aquacell with a pressure dressing overtop. LUE immobilizer maintained. Palpable bilateral radial pulses. A&V epicardial wires maintained and connected to pacer box off. at bedside. Patient is hungry - eating his dinner.
[2023-08-13] MEDS: COUMADIN 7.5 MG PO (19:31)
--- NOTE | 2023-08-13 21:45 | PTCARENOTE ---
Received pt from mid shift RN; pt sitting comfortably in chair; post op day 7 from AVR and received PPM today for complete heart block; pt AAOx4, denies pain; heart sounds audible, radial and DP pulses palpable, trace generalized edema, temp
epicardial AV wire connected to box, box is off; lungs diminished b/l bases, spo2 94% on RA; + bs x4 quadrants, abdomen soft non tender, pt's insulin pump maintained; pt voiding clear yellow urine; PIVs maintained; surgical dressings maintained;
left arm restriction sp PPM; call talamantes within reach; will continue to monitor.
[2023-08-13] MEDS: PT'S OWN INSULIN PUMP - NovoLOG 24.3999999999999986 UNIT SC (22:05)
[2023-08-13 22:07] LABS: Glucose - Point of Care 279 mg/dl (70-99)
[2023-08-13] MEDS: TYLENOL 1000 MG PO (22:20)
[2023-08-13 23:59] LABS: Glucose - Point of Care 181 mg/dl (70-99)
--- NOTE | 2023-08-14 | PTCARENOTE ---
Pt assessment unchanged;
--- NOTE | 2023-08-14 | PTCARENOTE ---
Pt assessment unchanged; VSS, 100% V paced; BG tested prior to snack, see work list for insulin pump bolus; call talamantes within reach; will continue to monitor.
[2023-08-14 00:10] VITALS: BP 129/64
[2023-08-14] MEDS: ANCEF 5 IV ×2 (00:42→08:34)
[2023-08-14 03:45] VITALS: BP 144/67
[2023-08-14 03:48] LABS: Hematocrit 34.2 % (39.0-52.0); Hemoglobin 11.7 g/dL (13.0-18.0); Mean Corp Hgb Conc. 34.2 g/dL (33.0-37.0); Mean Corpuscular Hgb 31.4 pg (27.0-31.0); Mean Corpuscular Volume 91.7 fL (80.0-94.0); Mean Platelet Volume 9.3 fL (7.4-10.4); Platelet Count 261 10^3/uL (130-400); Red Blood Cell Count 3.73 10^6/uL (4.70-6.10); White Blood Cell Count 12.6 10^3/uL (4.8-10.8)
--- NOTE | 2023-08-14 03:54 | W.PN.CT ---
Today's Communication / Plan
-
-No major issues overnight. Hemodynamically and neurologically intact
-Underwent successful Dual Chamber PPM placement yesterday 08/12 for postop CHB/LBBB, currently v-paced @ 75 bpm
-PPM site C/D/I with signs of infection, arm sling applied
-Will d/c temporary PW
-Will resume BB
-Cont. Coumadin, INR 2.10 after 7.5 mg Coumadin last night. INR 2.62 yesterday
-Goal INR 2-3 for 3 months, then 1.5-2.5 thereafter
-Diabetes education/management following, has own insulin pump which expires @ end of month
-Sodium 133 today, consider po lasix, fluid restriction
-Encourage use of IS
-OOB/Ambulate
-Home today
Assessment / Plan
-
- Bicuspid AV with severe symptomatic - s/p 25 mm ON-X [facility] AVR; FLACA ligation with a [address] Stewart on 08/06/23, pod #8
- LVEF preop was 65%. Following surgery, no new regional wall motion abnormalities and EF was hyperdynamic at 70% with mild to moderate left ventricular hypertrophy. There was evidence of diastolic dysfunction given the hypertrophic cardio
myopathy. There was no paravalvular leak, there was inherent washing jets that is normal with this table prosthesis. Both mechanical leaflets were moving normally as expected.
- intraop intermittent junctional and sinus bradycardia, did require DDI pacing.
- Diabetes mellitus, type II (HgA1c 7.5)
- Hypertension
- Class 3 obesity with a BMI of greater than 45
- HODAN, on CPAP
- Hyperlipidemia
- Glaucoma
- Vit D deficiency
- Seasonal allergy
- ED
- L carpal tunnel repair
- Multiple eye surgeries
- Non-smoker
- Acute postop blood loss anemia - stable, no transfusion
- Acute postop atelectasis
- Acute postop hypovolemia with subsequent hypervolemia
- Acute postop bradycardia with hypotension, required pacing- held BB and Amio
- Acute postop hyponatremia, 133
- Acute postop 1st degree AVB, intermittent Mobitz 1 initially - currently, nsr with CHB and LBBB
- Acute postop Dual Chamber PPM placement, 08/13/23
Discussed patient care with: Cardiology, Nursing, Respiratory Therapy, Pharmacy and Care Team
Subjective
Procedure
- s/p 25 mm ON-X [facility] AVR; FLACA ligation with a [address] Stewart on 08/06/23
-
Date of Service: August 14, 2023
Pt offers no complaints, appreciative of care received while here. Ambulating halls without difficulty
Objective Data
-
Lab Results
08/14/23 03:38
PT 27.9 Sec (11.4-14.6) H 08/13/23 02:00
INR 2.62 08/13/23 02:00
APTT 86.2 Sec (23.4-35.0) H 08/09/23 05:40
Vital Signs
Vital Signs
Temp Pulse Resp BP Pulse Ox
97.8 F 76 24 129/64 94
08/13/23 17:50 08/14/23 02:00 08/13/23 18:30 08/14/23 00:10 08/13/23 22:30
CT Intake/Output/Weight
08/13/23 08/13/23 08/14/23
06:59 18:59 06:59
Intake Total 250 / 350 1240 / 1720 480 / 1720
Output Total 1225 / 1600 375 / 1600
Balance 250 / -825 15 / 120 105 / 120
SaO2: 94 (RA)
Physical Exam
-
General: Awake, Oriented and AOx3
Cardiovascular: Regular rate & rhythm, No Murmurs, No Rub and No Gallop
Respiratory: Decreased Breath Sounds
Sternum: Stable
Incision: Clean, Dry, Intact and Dressing Intact
Extremities: Other (+trace edema)
Data Reviewed
-
Lab Results: Results Reviewed
Medications: Active Meds Reviewed
Chest X-Ray: Report Reviewed and Image Reviewed
ECG: Report Reviewed and Image Reviewed
[2023-08-14 03:57] LABS: PT 23.4 Sec (11.4-14.6)
--- NOTE | 2023-08-14 04:00 | PTCARENOTE ---
Pt assessment unchanged; VSS, 100% V paced with PPM; Labs drawn and sent; EKG obtained per order; will continue to monitor.
[2023-08-14 04:14] LABS: Blood Urea Nitrogen 23 mg/dl (9-20); Calcium 9.2 mg/dl (8.4-10.2); Carbon Dioxide 24 mmol/L (22-30); Chloride 103 mmol/L (98-107); Estimated Creatinine Clearance > 125 ml/min; Glucose 129 mg/dl (70-99); Magnesium 2.1 mg/dl (1.6-2.3); Potassium 4.8 mmol/L (3.5-5.1); Sodium 133 mmol/L (135-145); eGFR > 60.00
[2023-08-14 06:00] VITALS: BMI 46.1
[2023-08-14] MEDS: TYLENOL PO ×2 (07:05→13:09)
[2023-08-14 07:58] LABS: Glucose - Point of Care 174 mg/dl (70-99)
[2023-08-14] MEDS: PT'S OWN INSULIN PUMP - NovoLOG 36 UNIT SC (08:11)
[2023-08-14] MEDS: LOW STRENGTH ASPIRIN 81 MG PO (08:12)
[2023-08-14] MEDS: LIDOCAINE 4% PATCH TOPICAL (08:12)
[2023-08-14] MEDS: PROTONIX 40 MG PO (08:13)
[2023-08-14] MEDS: LIPITOR 10 MG PO (08:13)
[2023-08-14] MEDS: LASIX 40 MG IV (08:13)
[2023-08-14] MEDS: NEURONTIN 100 MG PO (08:15)
[2023-08-14] MEDS: SENOKOT-S 1 TABLET PO (08:15)
[2023-08-14] MEDS: ZESTRIL 20 MG PO (08:16)
[2023-08-14] MEDS: ORETIC 12.5 MG PO (08:16)
[2023-08-14] MEDS: TOPROL XL 25 MG PO (08:16)
--- NOTE | 2023-08-14 08:41 | PN.DE.MGMTRT ---
Insulin Management
- -
08/14/2023: Diabetes Management Consult Follow up:
Patient admitted for elective AVR. PMH includes T2DM, Routinely sees [facility]- sees Rishi, was last seen 2 weeks ago. Has [employer] pump, warranty expires end of July currently researching new pump options. Uses
CGM Dexcom G7, NovoLog insulin, Metformin 1000mg BID, and Victoza that was recently switched to Ozempic 0.25mg weekly but had not started taking it yet.
POD #8 s/p mechanical AVR with FLACA ligation. Yesterday had pacemaker.
Pt Awake, alert and oriented, sitting up in chair.
Pump settings as follows:
Basal carb ratio Correction Target
12am to 2 AM 2 units/hr 4 13 110 - 120
2AM 2.2 units/hr
6am 2
7am 10
11am 4
24 hour basal total 49 units.
Glucose stable and in range, premeal 108 to 179 one elevation 279 @ hs. Will make no changes to current pump settings.
Discussed with patient after discharge to start Ozempic as prescribed by canoe maker. At that time he should evaluate overnight glucose results for need to return 2AM basal rate to 2 units. Patient expressed frustration with doctors office,
unable to get a return phone call regarding his need for insulin for his pump. Patient has my number for further questions. Needs to obtain new pump as his is out of warranty today.
Diabetes History
- -
Type of Diabetes: 2 requiring insulin
Pre-Admission Diabetes Regimen
08/14/23
03:38
Creatinine 0.8
Lab Results
Hemoglobin A1c 7.5 % (4.0-5.6) H 07/13/23 12:07
Insulin Pump Settings
IP Diabetes Regimen
08/13/23 08/13/23 08/13/23
09:05 12:09 15:21
Glucose
POC Glucose 177 H 179 H 141 H
08/13/23 08/13/23 08/13/23
18:08 22:05 23:58
Glucose
POC Glucose 117 H 279 H 181 H
08/14/23 08/14/23
03:38 07:56
Glucose 129 H
POC Glucose 174 H
Patient Education
[2023-08-14 09:53] VITALS: BP 124/68
--- NOTE | 2023-08-14 09:53 | W.PN.CARDCBS ---
Today's Communication / Plan
-
He underwent successful implantation of dual-chamber pacemaker utilizing conduction system ventricular pacing (left bundle branch pacing)
Warfarin resumed.
Okay for discharge from cardiology standpoint.
Impression / Plan
-
Assessment:
Bicuspid aortic valve with severe symptomatic status post mechanical AVR, FLACA ligation with clip 08/06/2023
Postop Wenckebach and CHB
Postop anemia
Type 2 diabetes
Hypertension
Hyperlipidemia
Obesity
HODAN on CPAP
Vitamin D deficiency
Multiple prior eye surgeries
ECHO 06/06/23: EF 60 to 65%, severe aortic stenosis with peak/mean gradients 98/59 mmHg, KATHERINE 0.9 to 1.0 cm�, no AR, mild TR, PAP 37 mmHg
IntraOp CEASAR 08/06/2023: Severe , moderate LVH, mild left atrial enlargement, mild TR, very small PFO with intermittent [id number] shunt. Postoperatively valve well-seated with leaflets functioning well, mean gradient of 8 mmHg with no evidence
of paravalvular leak, left atrial appendage clip well-seated with no flow seen through FLACA remnant. EF remained preserved
Plan:
He underwent successful implantation of dual-chamber pacemaker utilizing conduction system ventricular pacing (left bundle branch pacing)
Okay to resume warfarin.
Okay for discharge from cardiology standpoint.
Progress Note - High Rigger
Subjective
Date of Service: August 14, 2023
He is up and walking hallway smiling, tells me he feels great. No chest pain shortness of breath palpitations or dizziness.
Objective
Labs:
08/14/23 03:38
08/14/23 03:38
Labs
Hgb 11.7 g/dL (13.0-18.0) L 08/14/23 03:38
Hct 34.2 % (39.0-52.0) L 08/14/23 03:38
Plt Count 261 10^3/uL (130-400) 08/14/23 03:38
PT 23.4 Sec (11.4-14.6) H 08/14/23 03:34
INR 2.10 08/14/23 03:34
APTT 86.2 Sec (23.4-35.0) H 08/09/23 05:40
Sodium 133 mmol/L (135-145) L 08/14/23 03:38
Potassium 4.8 mmol/L (3.5-5.1) 08/14/23 03:38
BUN 23 mg/dl (9-20) H 08/14/23 03:38
Creatinine 0.8 mg/dL (0.7-1.3) 08/14/23 03:38
Glucose 129 mg/dl (70-99) H 08/14/23 03:38
Vital Signs and I&O:
Vital Signs
Temp Pulse Resp BP Pulse Ox
98.2 F 75 16 144/70 95
08/14/23 04:00 08/14/23 08:16 08/14/23 04:00 08/14/23 08:16 08/14/23 07:00
Vital Signs
Temp Pulse Resp BP Pulse Ox
98.2 F 75 16 144/70 95
08/14/23 04:00 08/14/23 08:16 08/14/23 04:00 08/14/23 08:16 08/14/23 07:00
Intake & Output
08/12/23 08/13/23 08/14/23 08/15/23
06:59 06:59 06:59 06:59
Intake Total 480 / 480 350 / 350 1720 / 1720
Output Total 3025 / 3025 1175 / 1175 1600 / 1600 550 / 550
Balance -2545 / -2545 -825 / -825 120 / 120 -550 / -550
Physical Exam
Physical Exam
Well-appearing, no acute distress
Dressing left upper chest is clean and dry.
Regular rate and rhythm with normal S1 and S2, no S3 no S4. There is a grade 1/6 apical holosystolic murmur and no rubs. PMI is normally placed.
Lungs are clear to auscultation bilaterally without wheezes rales or rhonchi.
Abdomen soft nontender nondistended with normoactive bowel sounds
Extremities show trace pretibial edema bilaterally no clubbing or cyanosis.
Neurologic exam is grossly nonfocal.
[2023-08-14 10:00] VITALS: BP 135/72
[2023-08-14 10:03] VITALS: BP 124/68; BP 135/72; PULSE 70; O2SAT 93; O2SAT 96
[2023-08-14 12:20] LABS: Glucose - Point of Care 100 mg/dl (70-99)
[2023-08-14] MEDS: PT'S OWN INSULIN PUMP - NovoLOG 16.8000000000000007 UNIT SC (12:29)
--- NOTE | 2023-08-14 12:40 | CM ---
Reviewed chart. Met with Mr. Saldivar to review discharge plans. He states he is feeling well and maybe able to go home soon. We reviewed a home visit by the Cardiothoracic Transitional Care Nurse. He is agreeable to a home visit. Medical work-up in
progress. The discharge plan is to return home with his spouse and a home visit by the Cardiothoracic Transitional Care Nurse when medically stable.
--- NOTE | 2023-08-14 12:44 | PTCARENOTE ---
resumed care of patient from previous RN. walking rounds completed. patient independent in care. VSS. AAOx3. V paced. PPM in placed. temp wires remain but will be cut today. 50-130 for DDD PPM. HR 70-80s. click present. pulses palpable. no edema.
95% RA. lungs diminished but clear. 500 with IS. using own insulin pump. doing well with that. Diabetes RN Pat bedside answering questions from patient regarding at home care with pump. BRP/urinal. tea colored urine. All surgical sites stable. No
complaints of pain. for d/c this afternoon. will continue to monitor.
--- NOTE | 2023-08-14 14:21 | PN.CDI ---
Addendum entered and electronically signed by Eleazar Coughlin PA-C 08/14/23 14:54:
Pt with complete heart block/LBBB is an expected occurrence and is not a complication
Original Note:
CDI
- -
CDI:
Physician Documentation Request
Admit Date: 08/06/23 08:23
Dear Doctor Pat,
Please review the following and provide your response in the progress notes.
Clinical Indicators:
PN, 08/13
#-Underwent successful Dual Chamber PPM placement yesterday 08/12
#...for postop CHB/LBBB, currently v-paced @ 75 bpm
#- Bicuspid AV with severe symptomatic
#...- s/p 25 mm ON-X [facility] AVR; FLACA ligation with a 35 mm clip
#...by Dr. Stewart on 08/06/23, pod #8
#- intraop intermittent junctional and sinus bradycardia, did require DDI pacing.
#- Acute postop bradycardia with hypotension, required pacing- held BB and Amio
#- Acute postop 1st degree AVB, intermittent Mobitz 1 initially
#...- currently, nsr with CHB and LBBB
#- Acute postop Dual Chamber PPM placement, 08/13/23
Please clarify the following:
Complete Heart Block/LBBB is a complication of the surgery
Complete Heart Block/LBBB is unexpected but is NOT a complication of the surgery
Complete Heart Block/LBBB is an expected occurrence and is not a complication of surgery
Complete Heart Block/LBBB is inherent to/unavoidable during the surgery and is not a complication
Other(please specify)
Use of terms such as suspected, likely, concern for, or probable (associated with a specific diagnosis that is being evaluated, monitored, or treated as if it exists) are acceptable and can be coded in the inpatient setting, when documented at the
time of discharge.
Thank you,
Mellisa Dwyer RN BSN CCDS
CDI Specialist
please contact via tiger text
Please use your independent medical judgment in providing your response.
--- NOTE | 2023-08-14 15:00 | PTCARENOTE ---
wires cut, iv and tele pack removed. left with all d/c instructions via wheelchair and .
[2023-08-14 15:18] VITALS: BP 172/69
== END 2023-08-14 16:00 | disposition home or self-care (01) | DRG 220 ==
LOC: CVICU 08:23
PROVIDERS: Anesthesiology; Clinical Nurse Specialist Acute Care; Internal Medicine Cardiovascular Disease; Nurse Practitioner; Physician Assistant Medical; ADMITTING PHYSICIAN Thoracic Surgery (Cardiothoracic Vascular Surgery); FAMILY PHYSICIAN Family Medicine; OTHER PHYSICIAN Internal Medicine Critical Care Medicine
PROC: 02RF0JZ Replacement of Aortic Valve with Synthetic Substitute, Open Approach (ICD-10-PCS; 2023-08-06)
PROC: 02L70CK Occlusion of Left Atrial Appendage with Extraluminal Device, Open Approach (ICD-10-PCS; 2023-08-06)
PROC: B24BZZ4 Ultrasonography of Heart with Aorta, Transesophageal (ICD-10-PCS; 2023-08-06)
PROC: 5A1221Z Performance of Cardiac Output, Continuous (ICD-10-PCS; 2023-08-06)
PROC: 0JH606Z Insertion of Pacemaker, Dual Chamber into Chest Subcutaneous Tissue and Fascia, Open Approach (ICD-10-PCS; 2023-08-13)
PROC: 02H63JZ Insertion of Pacemaker Lead into Right Atrium, Percutaneous Approach (ICD-10-PCS; 2023-08-13)
PROC: 02HK3JZ Insertion of Pacemaker Lead into Right Ventricle, Percutaneous Approach (ICD-10-PCS; 2023-08-13)
DX: I35.0 Nonrheumatic aortic (valve) stenosis (principal); D62 Acute posthemorrhagic anemia; I44.2 Atrioventricular block, complete; Z68.42 Body mass index [BMI] 45.0-49.9, adult; J98.11 Atelectasis; I42.2 Other hypertrophic cardiomyopathy; I10 Essential (primary) hypertension; E66.01 Morbid (severe) obesity due to excess calories; G47.33 Obstructive sleep apnea (adult) (pediatric); E78.5 Hyperlipidemia, unspecified; H40.9 Unspecified glaucoma; E55.9 Vitamin D deficiency, unspecified; E11.65 Type 2 diabetes mellitus with hyperglycemia; R00.1 Bradycardia, unspecified; E86.1 Hypovolemia; I95.9 Hypotension, unspecified; Z79.82 Long term (current) use of aspirin; Z79.4 Long term (current) use of insulin; Z79.899 Other long term (current) drug therapy; Z96.41 Presence of insulin pump (external) (internal); Z82.49 Family history of ischemic heart disease and other diseases of the circulatory system
CPT/HCPCS: 88305; 88311; 33208; 36415; 71045; 80048; 80053; 81003; 82248; 82330; 82565; 82805; 82810; 82947; 82962; 83036; 83735; 84132; 84302; 84520; 85014; 85018; 85025; 85027; 85049; 85610; 85730; 86850; 86900; 86901; 86920; 87070; 93005; 93312; 93320; 93325; 93880; 94002; C1713; C1769; C1785; C1887; C1892; C1898; P9045; Q9967

== ENCOUNTER → 2023-08-20 14:28 | Outpatient (REF) | payer BC, SELFPAY ==
[2023-08-20 16:24] LABS: INR 2.79; PT 29.3 Sec (11.4-14.6)
== END ==
LOC: REG 14:28
PROVIDERS: ATTENDING PHYSICIAN Internal Medicine Cardiovascular Disease; FAMILY PHYSICIAN Internal Medicine
DX: Z79.01 Long term (current) use of anticoagulants (principal); Q23.1 Congenital insufficiency of aortic valve
CPT/HCPCS: 36415; 85610

== ENCOUNTER → 2023-08-28 06:44 | Outpatient (REF) | payer BC, SELFPAY ==
[2023-08-28 07:28] LABS: INR 2.04; PT 22.9 Sec (11.4-14.6)
[2023-08-28 08:41] LABS: PSA, Total - Diagnostic 5.12 ng/ml (0.0-4.0)
== END ==
LOC: REG 06:44
PROVIDERS: ATTENDING PHYSICIAN Specialist; FAMILY PHYSICIAN Internal Medicine; REFERRING PHYSICIAN Internal Medicine Cardiovascular Disease
DX: R97.20 Elevated prostate specific antigen [PSA] (principal); Z79.01 Long term (current) use of anticoagulants; Q23.1 Congenital insufficiency of aortic valve
CPT/HCPCS: 36415; 84153; 85610

== ENCOUNTER → 2023-08-31 15:48 | Outpatient (REF) | payer BC, SELFPAY | LOC: RCS 15:48 | PROVIDERS: ATTENDING PHYSICIAN Internal Medicine Cardiovascular Disease; FAMILY PHYSICIAN Family Medicine | DX: I10 Essential (primary) hypertension (principal); Z95.2 Presence of prosthetic heart valve | CPT/HCPCS: 93306 ==

== ENCOUNTER 2023-09-14 14:08 | Outpatient (RCR) | payer BC, SELFPAY ==
[2023-09-13 15:15] LABS: Glucose - Point of Care 85 mg/dl (70-99)
[2023-09-13 15:39] LABS: Glucose - Point of Care 131 mg/dl (70-99)
[2023-09-13 16:20] LABS: Glucose - Point of Care 144 mg/dl (70-99)
== END 2023-09-14 23:59 | disposition home or self-care (01) ==
LOC: CRHB 14:08
PROVIDERS: ATTENDING PHYSICIAN Internal Medicine Cardiovascular Disease
DX: Z95.2 Presence of prosthetic heart valve (principal)
CPT/HCPCS: 82962; 93798

== ENCOUNTER → 2023-09-19 14:11 | Outpatient (REF) | payer BC, SELFPAY ==
[2023-09-19 14:50] LABS: % Basophils 0.5 % (0-2); % Immature Granulocytes 0.2 % (0-0.5); % Monocytes 7.1 % (1.7-9.3); % Neutrophils 59.2 % (42.2-75.2); Absolute Eosinophils 0.1 10^3/uL (0-0.7); Absolute Lymphocytes 2.7 10^3/uL (1.2-3.4); Absolute Monocytes 0.6 10^3/uL (0.1-0.6); Absolute Neutrophils 4.9 10^3/uL (1.4-6.5); Hematocrit 39.2 % (39.0-52.0); Hemoglobin 13.3 g/dL (13.0-18.0); Mean Corp Hgb Conc. 33.9 g/dL (33.0-37.0); Mean Corpuscular Hgb 30.6 pg (27.0-31.0); Mean Corpuscular Volume 90.1 fL (80.0-94.0); Mean Platelet Volume 9.5 fL (7.4-10.4); Nucleated Red Blood Cells % 0 % (-); Platelet Count 288 10^3/uL (130-400); Red Blood Cell Count 4.35 10^6/uL (4.70-6.10); Red Cell Dist. Width 12.8 % (11.5-14.5); White Blood Cell Count 8.3 10^3/uL (4.8-10.8)
[2023-09-19 15:02] LABS: INR 1.84; PT 21.1 Sec (11.4-14.6)
[2023-09-19 15:05] LABS: ALT (SGPT) 19 U/L (0-50); AST (SGOT) 25 U/L (17-59); Albumin 4.3 g/dl (3.5-5.0); Alkaline Phosphatase 90 U/L (38-126); Blood Urea Nitrogen 14 mg/dl (9-20); Calcium 10.3 mg/dl (8.4-10.2); Carbon Dioxide 27 mmol/L (22-30); Chloride 102 mmol/L (98-107); Glucose 127 mg/dl (70-99); Magnesium 1.7 mg/dl (1.6-2.3); Potassium 4.1 mmol/L (3.5-5.1); Sodium 138 mmol/L (135-145); Total Bilirubin 0.4 mg/dl (0.2-1.3); Total Protein 7.1 g/dl (6.3-8.2); eGFR > 60.00
[2023-09-19 15:36] LABS: TSH 2.37 uIU/ml (0.47-4.68)
== END ==
LOC: REG 14:11
PROVIDERS: Internal Medicine Cardiovascular Disease; ATTENDING PHYSICIAN Internal Medicine Cardiovascular Disease; FAMILY PHYSICIAN Family Medicine
DX: R00.2 Palpitations (principal); I10 Essential (primary) hypertension; E78.5 Hyperlipidemia, unspecified; E66.01 Morbid (severe) obesity due to excess calories; Z95.2 Presence of prosthetic heart valve; I35.0 Nonrheumatic aortic (valve) stenosis; Z79.01 Long term (current) use of anticoagulants; Q23.1 Congenital insufficiency of aortic valve
CPT/HCPCS: 36415; 80053; 83735; 84443; 85025; 85610

== ENCOUNTER → 2023-10-09 06:30 | Outpatient (REF) | payer BC, SELFPAY ==
[2023-10-09 07:26] LABS: % Basophils 0.5 % (0-2); % Eosinophils 1.4 % (0-6); % Immature Granulocytes 0.5 % (0-0.5); % Lymphocytes 27.6 % (20.5-51.1); % Monocytes 7.4 % (1.7-9.3); % Neutrophils 62.6 % (42.2-75.2); Absolute Eosinophils 0.1 10^3/uL (0-0.7); Absolute Lymphocytes 2.5 10^3/uL (1.2-3.4); Absolute Monocytes 0.7 10^3/uL (0.1-0.6); Absolute Neutrophils 5.6 10^3/uL (1.4-6.5); Hematocrit 41.2 % (39.0-52.0); Mean Corpuscular Hgb 30.8 pg (27.0-31.0); Mean Corpuscular Volume 90.5 fL (80.0-94.0); Mean Platelet Volume 9.3 fL (7.4-10.4); Nucleated Red Blood Cells % 0 % (-); Platelet Count 297 10^3/uL (130-400); Red Blood Cell Count 4.55 10^6/uL (4.70-6.10); Red Cell Dist. Width 13.8 % (11.5-14.5); White Blood Cell Count 8.9 10^3/uL (4.8-10.8)
[2023-10-09 07:37] LABS: PT 25.2 Sec (11.4-14.6)
[2023-10-09 07:58] LABS: Microalbumin, Random Urine 3.3 mg/dl (0.6-1.7); Microalbumin/creatinine Ratio 24.2 mg/g
[2023-10-09 08:00] LABS: ALT (SGPT) 21 U/L (0-50); AST (SGOT) 28 U/L (17-59); Albumin 4.5 g/dl (3.5-5.0); Alkaline Phosphatase 82 U/L (38-126); Blood Urea Nitrogen 14 mg/dl (9-20); Carbon Dioxide 25 mmol/L (22-30); Chloride 105 mmol/L (98-107); Glucose 108 mg/dl (70-99); HDL Cholesterol 40 mg/dl; LDL Cholesterol, Calculated 94 mg/dl; Potassium 4.6 mmol/L (3.5-5.1); Sodium 137 mmol/L (135-145); Total Bilirubin 0.7 mg/dl (0.2-1.3); Total Cholesterol 186 mg/dl (50-199); Total Protein 7.3 g/dl (6.3-8.2); Triglyceride 263 mg/dl (10-149); Urine Protein < 5 mg/dl; Very Low Density Lipoprotein 52 mg/dl (0-30); eGFR > 60.00
[2023-10-09 09:43] LABS: Glycohemoglobin (HgbA1c) 6.1 % (4.0-5.6)
== END ==
LOC: REG 06:30
PROVIDERS: ATTENDING PHYSICIAN Internal Medicine Cardiovascular Disease; FAMILY PHYSICIAN Internal Medicine; REFERRING PHYSICIAN Physician Assistant
DX: Z79.01 Long term (current) use of anticoagulants (principal); Q23.1 Congenital insufficiency of aortic valve; E11.65 Type 2 diabetes mellitus with hyperglycemia
CPT/HCPCS: 36415; 80053; 80061; 82043; 82570; 83036; 84156; 85025; 85610

== ENCOUNTER 2023-10-12 06:43 | Outpatient (RCR) | payer BC, SELFPAY ==
[2023-09-17 06:30] LABS: Glucose - Point of Care 140 mg/dl (70-99)
[2023-09-17 07:22] LABS: Glucose - Point of Care 134 mg/dl (70-99)
[2023-09-19 06:30] LABS: Glucose - Point of Care 132 mg/dl (70-99)
[2023-09-19 07:18] LABS: Glucose - Point of Care 130 mg/dl (70-99)
[2023-09-21 06:22] LABS: Glucose - Point of Care 215 mg/dl (70-99)
[2023-09-21 07:19] LABS: Glucose - Point of Care 118 mg/dl (70-99)
[2023-09-24 06:31] LABS: Glucose - Point of Care 129 mg/dl (70-99)
[2023-09-24 07:32] LABS: Glucose - Point of Care 105 mg/dl (70-99)
[2023-09-26 06:27] LABS: Glucose - Point of Care 125 mg/dl (70-99)
[2023-09-26 07:24] LABS: Glucose - Point of Care 117 mg/dl (70-99)
[2023-09-28 06:26] LABS: Glucose - Point of Care 149 mg/dl (70-99)
[2023-09-28 07:33] LABS: Glucose - Point of Care 147 mg/dl (70-99)
[2023-10-10 07:24] LABS: Glucose - Point of Care 73 mg/dl (70-99)
== END 2023-10-12 23:59 | disposition home or self-care (01) ==
LOC: CRHB 06:43
PROVIDERS: ATTENDING PHYSICIAN Internal Medicine Cardiovascular Disease; FAMILY PHYSICIAN Family Medicine
DX: Z95.2 Presence of prosthetic heart valve (principal)
CPT/HCPCS: 82962; 93797; 93798

== ENCOUNTER 2023-11-07 10:42 | Outpatient (RCR) | payer BC, SELFPAY | END 2023-11-07 23:59 | disposition home or self-care (01) | LOC: CRHB 10:42 | PROVIDERS: ATTENDING PHYSICIAN Internal Medicine Cardiovascular Disease; FAMILY PHYSICIAN Family Medicine | DX: Z95.2 Presence of prosthetic heart valve (principal) | CPT/HCPCS: 93797; 93798; G0422; G0423 ==

== ENCOUNTER → 2023-11-09 10:39 | Outpatient (REF) | payer BC, SELFPAY ==
[2023-11-09 11:49] LABS: INR 2.45; PT 26.5 Sec (11.4-14.6)
[2023-11-09 13:34] LABS: PSA, Total - Diagnostic 3.05 ng/ml (0.0-4.0)
== END ==
LOC: REG 10:39
PROVIDERS: ATTENDING PHYSICIAN Specialist; FAMILY PHYSICIAN Internal Medicine
DX: R97.20 Elevated prostate specific antigen [PSA] (principal); Z79.01 Long term (current) use of anticoagulants; Q23.1 Congenital insufficiency of aortic valve
CPT/HCPCS: 36415; 84153; 85610

== ENCOUNTER → 2023-12-07 07:51 | Outpatient (REF) | payer BC, SELFPAY ==
[2023-12-07 09:02] LABS: INR 3.21; PT 32.8 Sec (11.4-14.6)
== END ==
LOC: REG 07:51
PROVIDERS: ATTENDING PHYSICIAN Internal Medicine Cardiovascular Disease; FAMILY PHYSICIAN Internal Medicine
DX: Z79.01 Long term (current) use of anticoagulants (principal); Q23.1 Congenital insufficiency of aortic valve
CPT/HCPCS: 36415; 85610

== ENCOUNTER → 2023-12-14 07:59 | Outpatient (REF) | payer BC, SELFPAY ==
[2023-12-14 08:58] LABS: INR 2.05
== END ==
LOC: REG 07:59
PROVIDERS: ATTENDING PHYSICIAN Internal Medicine Cardiovascular Disease; FAMILY PHYSICIAN Internal Medicine
DX: Z79.01 Long term (current) use of anticoagulants (principal); Q23.1 Congenital insufficiency of aortic valve
CPT/HCPCS: 36415; 85610

== ENCOUNTER → 2023-12-28 11:06 | Outpatient (REF) | payer BC, SELFPAY ==
[2023-12-28 11:57] LABS: INR 1.83
== END ==
LOC: REG 11:06
PROVIDERS: ATTENDING PHYSICIAN Internal Medicine Cardiovascular Disease; FAMILY PHYSICIAN Internal Medicine
DX: Z79.01 Long term (current) use of anticoagulants (principal); Q23.1 Congenital insufficiency of aortic valve
CPT/HCPCS: 36415; 85610

== ENCOUNTER 2024-01-11 13:10 | Outpatient (RCR) | payer BC, SELFPAY | END 2024-01-11 23:59 | disposition home or self-care (01) | LOC: RPT 13:10 | PROVIDERS: ATTENDING PHYSICIAN Nurse Practitioner Family | DX: M79.602 Pain in left arm (principal); Z73.6 Limitation of activities due to disability; R20.0 Anesthesia of skin; M25.512 Pain in left shoulder; M54.50 Low back pain, unspecified; R26.89 Other abnormalities of gait and mobility | CPT/HCPCS: 97110; 97162 ==

== ENCOUNTER → 2024-01-28 09:49 | Outpatient (REF) | payer BC, SELFPAY ==
[2024-01-28 10:41] LABS: INR 2.31; PT 25.3 Sec (11.4-14.6)
== END ==
LOC: REG 09:49
PROVIDERS: ATTENDING PHYSICIAN Internal Medicine Cardiovascular Disease; FAMILY PHYSICIAN Internal Medicine
DX: Z79.01 Long term (current) use of anticoagulants (principal); Q23.1 Congenital insufficiency of aortic valve
CPT/HCPCS: 36415; 85610

== ENCOUNTER 2024-02-04 17:07 | Outpatient (RCR) | payer BC, SELFPAY | END 2024-02-04 23:59 | disposition home or self-care (01) | LOC: RPT 17:07 | PROVIDERS: ATTENDING PHYSICIAN Nurse Practitioner Family | DX: M79.602 Pain in left arm (principal); Z73.6 Limitation of activities due to disability | CPT/HCPCS: 97010; 97110 ==

== ENCOUNTER → 2024-02-19 07:42 | Outpatient (REF) | payer BC, SELFPAY ==
[2024-02-19 08:38] LABS: % Basophils 0.4 % (0-2); % Eosinophils 1.6 % (0-6); % Immature Granulocytes 0.4 % (0-0.5); % Lymphocytes 26.8 % (20.5-51.1); % Monocytes 6.8 % (1.7-9.3); Absolute Eosinophils 0.1 10^3/uL (0-0.7); Absolute Lymphocytes 2.1 10^3/uL (1.2-3.4); Absolute Monocytes 0.5 10^3/uL (0.1-0.6); Absolute Neutrophils 4.9 10^3/uL (1.4-6.5); Hematocrit 43.8 % (39.0-52.0); Hemoglobin 14.7 g/dL (13.0-18.0); Mean Corp Hgb Conc. 33.6 g/dL (33.0-37.0); Mean Corpuscular Hgb 31.8 pg (27.0-31.0); Mean Corpuscular Volume 94.8 fL (80.0-94.0); Mean Platelet Volume 9.5 fL (7.4-10.4); Nucleated Red Blood Cells % 0 % (-); Platelet Count 253 10^3/uL (130-400); Red Blood Cell Count 4.62 10^6/uL (4.70-6.10); Red Cell Dist. Width 13.5 % (11.5-14.5); White Blood Cell Count 7.7 10^3/uL (4.8-10.8)
[2024-02-19 09:18] LABS: ALT (SGPT) 24 U/L (0-50); AST (SGOT) 28 U/L (17-59); Albumin 4.5 g/dl (3.5-5.0); Alkaline Phosphatase 64 U/L (38-126); Blood Urea Nitrogen 13 mg/dl (9-20); Calcium 9.9 mg/dl (8.4-10.2); Carbon Dioxide 27 mmol/L (22-30); Chloride 103 mmol/L (98-107); Glucose 100 mg/dl (70-99); HDL Cholesterol 47 mg/dl; LDL Cholesterol, Calculated 79 mg/dl; Potassium 5.1 mmol/L (3.5-5.1); Sodium 143 mmol/L (135-145); Total Bilirubin 0.5 mg/dl (0.2-1.3); Total Cholesterol 173 mg/dl (50-199); Total Protein 7.1 g/dl (6.3-8.2); Triglyceride 237 mg/dl (10-149); Very Low Density Lipoprotein 47 mg/dl (0-30); eGFR > 60.00
[2024-02-19 09:33] LABS: PSA, Total - Diagnostic 3.52 ng/ml (0.0-4.0)
[2024-02-19 12:01] LABS: Glycohemoglobin (HgbA1c) 6.3 % (4.0-5.6)
== END ==
LOC: REG 07:42
PROVIDERS: ATTENDING PHYSICIAN Specialist; FAMILY PHYSICIAN Physician Assistant
DX: R97.20 Elevated prostate specific antigen [PSA] (principal); E11.65 Type 2 diabetes mellitus with hyperglycemia
CPT/HCPCS: 36415; 80053; 80061; 83036; 84153; 85025

== ENCOUNTER → 2024-02-27 13:25 | Outpatient (REF) | payer BC, SELFPAY | LOC: MRI 13:25 | PROVIDERS: ATTENDING PHYSICIAN Nurse Practitioner Family | DX: M25.561 Pain in right knee (principal) | CPT/HCPCS: 73721 ==

== ENCOUNTER → 2024-03-04 09:02 | Outpatient (REF) | payer BC, SELFPAY ==
[2024-03-04 10:39] LABS: INR 1.96; PT 22.5 Sec (11.4-14.6)
== END ==
LOC: REG 09:02
PROVIDERS: ATTENDING PHYSICIAN Internal Medicine Cardiovascular Disease
DX: Z79.01 Long term (current) use of anticoagulants (principal); Q23.1 Congenital insufficiency of aortic valve
CPT/HCPCS: 36415; 85610

== ENCOUNTER → 2024-03-18 08:08 | Outpatient (REF) | payer BC, SELFPAY | LOC: CLAB 08:08 | PROVIDERS: ATTENDING PHYSICIAN Dermatology Dermatopathology | DX: L91.8 Other hypertrophic disorders of the skin (principal) | CPT/HCPCS: 88305 ==

== ENCOUNTER → 2024-04-14 13:08 | Outpatient (REF) | payer BC, SELFPAY ==
[2024-04-14 14:10] LABS: INR 1.36; PT 17.2 Sec (11.4-14.6)
== END ==
LOC: REG 13:08
PROVIDERS: ATTENDING PHYSICIAN Internal Medicine Cardiovascular Disease
DX: Z79.01 Long term (current) use of anticoagulants (principal); Q23.1 Congenital insufficiency of aortic valve
CPT/HCPCS: 36415; 85610

== ENCOUNTER → 2024-04-21 06:51 | Outpatient (REF) | payer BC, SELFPAY ==
[2024-04-21 08:27] LABS: INR 1.62; PT 19.5 Sec (11.4-14.6)
== END ==
LOC: REG 06:51
PROVIDERS: ATTENDING PHYSICIAN Internal Medicine Cardiovascular Disease; FAMILY PHYSICIAN Internal Medicine
DX: Z79.01 Long term (current) use of anticoagulants (principal); Q23.1 Congenital insufficiency of aortic valve
CPT/HCPCS: 36415; 85610

== ENCOUNTER → 2024-05-14 06:30 | Outpatient (REF) | payer BC, SELFPAY ==
[2024-05-14 07:38] LABS: % Basophils 0.4 % (0-2); % Eosinophils 1.5 % (0-6); % Immature Granulocytes 0.4 % (0-0.5); % Lymphocytes 28.9 % (20.5-51.1); % Neutrophils 60.8 % (42.2-75.2); Absolute Eosinophils 0.1 10^3/uL (0-0.7); Absolute Monocytes 0.6 10^3/uL (0.1-0.6); Absolute Neutrophils 4.2 10^3/uL (1.4-6.5); Hematocrit 45.4 % (39.0-52.0); Hemoglobin 14.9 g/dL (13.0-18.0); Mean Corp Hgb Conc. 32.8 g/dL (33.0-37.0); Mean Corpuscular Hgb 31.4 pg (27.0-31.0); Mean Corpuscular Volume 95.6 fL (80.0-94.0); Mean Platelet Volume 9.4 fL (7.4-10.4); Nucleated Red Blood Cells % 0 % (-); Platelet Count 230 10^3/uL (130-400); Red Blood Cell Count 4.75 10^6/uL (4.70-6.10); Red Cell Dist. Width 13.3 % (11.5-14.5); White Blood Cell Count 6.9 10^3/uL (4.8-10.8)
[2024-05-14 08:06] LABS: ALT (SGPT) 24 U/L (0-50); AST (SGOT) 30 U/L (17-59); Albumin 4.4 g/dl (3.5-5.0); Alkaline Phosphatase 67 U/L (38-126); Blood Urea Nitrogen 11 mg/dl (9-20); Calcium 9.8 mg/dl (8.4-10.2); Carbon Dioxide 28 mmol/L (22-30); Chloride 103 mmol/L (98-107); Glucose 118 mg/dl (70-99); HDL Cholesterol 42 mg/dl; LDL Cholesterol, Calculated 82 mg/dl; Potassium 4.9 mmol/L (3.5-5.1); Sodium 140 mmol/L (135-145); Total Bilirubin 0.6 mg/dl (0.2-1.3); Total Cholesterol 156 mg/dl (50-199); Triglyceride 163 mg/dl (10-149); Very Low Density Lipoprotein 32 mg/dl (0-30); eGFR > 60.00
[2024-05-14 08:51] LABS: Glycohemoglobin (HgbA1c) 6.1 % (4.0-5.6)
== END ==
LOC: REG 06:30
PROVIDERS: ATTENDING PHYSICIAN Physician Assistant; FAMILY PHYSICIAN Internal Medicine
DX: E11.65 Type 2 diabetes mellitus with hyperglycemia (principal)
CPT/HCPCS: 36415; 80053; 80061; 83036; 85025

== ENCOUNTER 2024-05-22 06:26 | Day surgery (SDC) | payer BC, SELFPAY ==
[2024-05-22 08:15] VITALS: BMI 46.8
[2024-05-22 08:20] VITALS: BP 148/68
[2024-05-22 08:27] VITALS: BMI 46.8
[2024-05-22 08:36] LABS: Glucose - Point of Care 128 mg/dl (70-99)
[2024-05-22 09:21] VITALS: BP 127/64
[2024-05-22 09:30] VITALS: BP 136/72
[2024-05-22 09:34] LABS: Glucose - Point of Care 113 mg/dl (70-99)
[2024-05-22 09:45] VITALS: BP 136/45
== END 2024-05-22 10:04 | disposition home or self-care (01) ==
LOC: GI 06:26
PROVIDERS: ATTENDING PHYSICIAN Internal Medicine Gastroenterology
DX: Z12.11 Encounter for screening for malignant neoplasm of colon (principal); D12.3 Benign neoplasm of transverse colon; D12.4 Benign neoplasm of descending colon; K57.30 Diverticulosis of large intestine without perforation or abscess without bleeding; K64.8 Other hemorrhoids; Z79.01 Long term (current) use of anticoagulants
CPT/HCPCS: 45385; 88305; 82962

== ENCOUNTER → 2024-05-30 07:04 | Outpatient (REF) | payer BC, SELFPAY ==
[2024-05-30 08:25] LABS: INR 1.56; PT 18.9 Sec (11.4-14.6)
== END ==
LOC: REG 07:04
PROVIDERS: ATTENDING PHYSICIAN Internal Medicine Cardiovascular Disease; FAMILY PHYSICIAN Family Medicine
DX: Z79.01 Long term (current) use of anticoagulants (principal); Q23.1 Congenital insufficiency of aortic valve
CPT/HCPCS: 36415; 85610

== ENCOUNTER → 2024-06-30 08:54 | Outpatient (REF) | payer BC, SELFPAY | LOC: CLAB 08:54 | PROVIDERS: Pathology Anatomic Pathology & Clinical Pathology; ATTENDING PHYSICIAN Physician Assistant Medical | DX: D48.5 Neoplasm of uncertain behavior of skin (principal) | CPT/HCPCS: 88305 ==

== ENCOUNTER → 2024-07-04 06:29 | Outpatient (REF) | payer BC, SELFPAY ==
[2024-07-04 07:37] LABS: INR 1.79; PT 21.3 Sec (11.4-14.6)
== END ==
LOC: REG 06:29
PROVIDERS: ATTENDING PHYSICIAN Internal Medicine Cardiovascular Disease; FAMILY PHYSICIAN Internal Medicine
DX: Z79.01 Long term (current) use of anticoagulants (principal); Q23.1 Congenital insufficiency of aortic valve
CPT/HCPCS: 36415; 85610

== ENCOUNTER → 2024-07-10 07:18 | Outpatient (REF) | payer BC, SELFPAY | LOC: HWRCS 07:18 | PROVIDERS: ATTENDING PHYSICIAN Internal Medicine Cardiovascular Disease; FAMILY PHYSICIAN Nurse Practitioner Family | DX: I10 Essential (primary) hypertension (principal); Z95.2 Presence of prosthetic heart valve | CPT/HCPCS: 93306 ==

== ENCOUNTER → 2024-08-01 11:17 | Outpatient (REF) | payer BC, MEDICARE, SELFPAY ==
[2024-08-01 12:07] LABS: INR 2.21; PT 24.6 Sec (11.4-14.6)
== END ==
LOC: REG 11:17
PROVIDERS: ATTENDING PHYSICIAN Internal Medicine Cardiovascular Disease; FAMILY PHYSICIAN Internal Medicine
DX: Z79.01 Long term (current) use of anticoagulants (principal); Q23.1 Congenital insufficiency of aortic valve
CPT/HCPCS: 36415; 85610

== ENCOUNTER → 2024-08-29 08:46 | Outpatient (REF) | payer BC, SELFPAY ==
[2024-08-29 11:00] LABS: PSA, Total - Diagnostic 3.62 ng/ml (0.0-4.0)
== END ==
LOC: REG 08:46
PROVIDERS: ATTENDING PHYSICIAN Specialist
DX: R97.20 Elevated prostate specific antigen [PSA] (principal)
CPT/HCPCS: 36415; 84153

== ENCOUNTER → 2024-09-12 06:34 | Outpatient (REF) | payer BC, SELFPAY ==
[2024-09-12 07:24] LABS: INR 2.62; PT 28.4 Sec (11.4-14.6)
== END ==
LOC: REG 06:34
PROVIDERS: ATTENDING PHYSICIAN Internal Medicine Cardiovascular Disease; FAMILY PHYSICIAN Internal Medicine
DX: Z79.01 Long term (current) use of anticoagulants (principal); Q23.1 Congenital insufficiency of aortic valve
CPT/HCPCS: 36415; 85610

== ENCOUNTER → 2024-09-18 06:43 | Outpatient (REF) | payer BC, SELFPAY ==
[2024-09-18 07:33] LABS: % Basophils 0.8 % (0-2); % Eosinophils 0.9 % (0-6); % Immature Granulocytes 0.7 % (0-0.5); % Lymphocytes 29.4 % (20.5-51.1); % Monocytes 8.7 % (1.7-9.3); % Neutrophils 59.5 % (42.2-75.2); Absolute Basophils 0.1 10^3/uL (0-0.2); Absolute Eosinophils 0.1 10^3/uL (0-0.7); Absolute Immature Granulocytes 0.1 10^3/uL (0-0.05); Absolute Lymphocytes 2.2 10^3/uL (1.2-3.4); Absolute Monocytes 0.7 10^3/uL (0.1-0.6); Absolute Neutrophils 4.6 10^3/uL (1.4-6.5); Hematocrit 45.4 % (39.0-52.0); Mean Corpuscular Hgb 32.1 pg (27.0-31.0); Mean Platelet Volume 9.6 fL (7.4-10.4); Nucleated Red Blood Cells % 0 % (-); Platelet Count 252 10^3/uL (130-400); Red Blood Cell Count 4.68 10^6/uL (4.70-6.10); Red Cell Dist. Width 13.3 % (11.5-14.5); White Blood Cell Count 7.6 10^3/uL (4.8-10.8)
[2024-09-18 08:17] LABS: ALT (SGPT) 26 U/L (0-50); AST (SGOT) 25 U/L (17-59); Albumin 4.7 g/dl (3.5-5.0); Alkaline Phosphatase 67 U/L (38-126); Blood Urea Nitrogen 16 mg/dl (9-20); Calcium 9.8 mg/dl (8.4-10.2); Carbon Dioxide 26 mmol/L (22-30); Chloride 109 mmol/L (98-107); Glucose 116 mg/dl (70-99); HDL Cholesterol 43 mg/dl; LDL Cholesterol, Calculated 76 mg/dl; Potassium 4.7 mmol/L (3.5-5.1); Sodium 143 mmol/L (135-145); Total Bilirubin 0.7 mg/dl (0.2-1.3); Total Cholesterol 164 mg/dl (50-199); Total Protein 7.3 g/dl (6.3-8.2); Triglyceride 229 mg/dl (10-149); Very Low Density Lipoprotein 45 mg/dl (0-30); eGFR > 60.00
[2024-09-18 08:42] LABS: Microalbumin, Random Urine 6.4 mg/dl (0.6-1.7)
[2024-09-18 08:44] LABS: TSH 4.62 uIU/ml (0.47-4.68)
[2024-09-18 08:48] LABS: Microalbumin/creatinine Ratio 83.7 mg/g; Protein/creatinine Ratio 0.2; Urine Protein 15 mg/dl
[2024-09-18 09:53] LABS: Glycohemoglobin (HgbA1c) 6.3 % (4.0-5.6)
== END ==
LOC: REG 06:43
PROVIDERS: ATTENDING PHYSICIAN Physician Assistant; FAMILY PHYSICIAN Internal Medicine
DX: E11.65 Type 2 diabetes mellitus with hyperglycemia (principal)
CPT/HCPCS: 36415; 80053; 80061; 82043; 82570; 83036; 84156; 84443; 85025

== ENCOUNTER → 2024-09-26 06:24 | Outpatient (REF) | payer BC, SELFPAY ==
[2024-09-26 07:44] LABS: PT 16.5 Sec (11.4-14.6)
== END ==
LOC: REG 06:24
PROVIDERS: ATTENDING PHYSICIAN Internal Medicine Cardiovascular Disease; FAMILY PHYSICIAN Internal Medicine
DX: Z79.01 Long term (current) use of anticoagulants (principal); Q23.1 Congenital insufficiency of aortic valve
CPT/HCPCS: 36415; 85610

== ENCOUNTER → 2024-10-10 08:26 | Outpatient (REF) | payer BC, SELFPAY ==
[2024-10-10 09:28] LABS: INR 1.91; PT 22.1 Sec (11.4-14.6)
== END ==
LOC: REG 08:26
PROVIDERS: ATTENDING PHYSICIAN Internal Medicine Cardiovascular Disease; FAMILY PHYSICIAN Internal Medicine
DX: Z79.01 Long term (current) use of anticoagulants (principal); Q23.1 Congenital insufficiency of aortic valve
CPT/HCPCS: 36415; 85610

== ENCOUNTER → 2024-11-07 06:40 | Outpatient (REF) | payer BC, SELFPAY ==
[2024-11-07 07:16] LABS: INR 1.85; PT 21.9 Sec (11.4-14.6)
== END ==
LOC: REG 06:40
PROVIDERS: ATTENDING PHYSICIAN Internal Medicine Cardiovascular Disease; FAMILY PHYSICIAN Internal Medicine
DX: Z79.01 Long term (current) use of anticoagulants (principal); Q23.1 Congenital insufficiency of aortic valve
CPT/HCPCS: 36415; 85610

== ENCOUNTER → 2024-12-08 10:13 | Outpatient (REF) | payer BC, SELFPAY ==
[2024-12-08 12:11] LABS: INR 1.56; PT 18.9 Sec (11.4-14.6)
== END ==
LOC: REG 10:13
PROVIDERS: ATTENDING PHYSICIAN Internal Medicine Cardiovascular Disease; FAMILY PHYSICIAN Internal Medicine
DX: Q23.1 Congenital insufficiency of aortic valve (principal); Z79.01 Long term (current) use of anticoagulants
CPT/HCPCS: 36415; 85610

== ENCOUNTER → 2025-01-05 10:32 | Outpatient (REF) | payer BC, SELFPAY ==
[2025-01-05 11:52] LABS: INR 1.18; PT 15.3 Sec (11.4-14.6)
== END ==
LOC: REG 10:32
PROVIDERS: ATTENDING PHYSICIAN Internal Medicine Cardiovascular Disease; FAMILY PHYSICIAN Internal Medicine
DX: Z79.4 Long term (current) use of insulin (principal); Z79.01 Long term (current) use of anticoagulants; Q23.1 Congenital insufficiency of aortic valve
CPT/HCPCS: 36415; 85610

== ENCOUNTER → 2025-01-09 12:15 | Outpatient (REF) | payer BC, SELFPAY ==
[2025-01-09 13:20] LABS: INR 1.63; PT 19.6 Sec (11.4-14.6)
== END ==
LOC: REG 12:15
PROVIDERS: ATTENDING PHYSICIAN Internal Medicine Cardiovascular Disease
DX: Z79.01 Long term (current) use of anticoagulants (principal); Q23.1 Congenital insufficiency of aortic valve
CPT/HCPCS: 36415; 85610

== ENCOUNTER → 2025-01-16 10:25 | Outpatient (REF) | payer BC, MEDICARE, SELFPAY | LOC: CLAB 10:25 | PROVIDERS: ATTENDING PHYSICIAN Physician Assistant Medical | DX: D48.5 Neoplasm of uncertain behavior of skin (principal) | CPT/HCPCS: 88305 ==

== ENCOUNTER → 2025-01-26 06:35 | Outpatient (REF) | payer BC, SELFPAY ==
[2025-01-26 08:11] LABS: Hematocrit 43.2 % (39.0-52.0); Hemoglobin 14.1 g/dL (13.0-18.0); Mean Corp Hgb Conc. 32.6 g/dL (33.0-37.0); Mean Corpuscular Volume 95.4 fL (80.0-94.0); Nucleated Red Blood Cells % 0 % (-); Platelet Count 247 10^3/uL (130-400); Red Cell Dist. Width 13.3 % (11.5-14.5)
[2025-01-26 08:33] LABS: ALT (SGPT) 25 U/L (0-50); AST (SGOT) 24 U/L (17-59); Albumin 4.2 g/dl (3.5-5.0); Alkaline Phosphatase 66 U/L (38-126); Blood Urea Nitrogen 12 mg/dl (9-20); Calcium 9.7 mg/dl (8.4-10.2); Carbon Dioxide 31 mmol/L (22-30); Chloride 107 mmol/L (98-107); Glucose 102 mg/dl (70-99); HDL Cholesterol 44 mg/dl; LDL Cholesterol, Calculated 84 mg/dl; Potassium 5.0 mmol/L (3.5-5.1); Sodium 143 mmol/L (135-145); Total Protein 7.1 g/dl (6.3-8.2); Very Low Density Lipoprotein 44 mg/dl (0-30); eGFR > 60.00
[2025-01-26 08:40] LABS: Glycohemoglobin (HgbA1c) 7.0 % (4.0-5.6)
== END ==
LOC: REG 06:35
PROVIDERS: ATTENDING PHYSICIAN Physician Assistant; FAMILY PHYSICIAN Internal Medicine
DX: E11.65 Type 2 diabetes mellitus with hyperglycemia (principal)
CPT/HCPCS: 36415; 80053; 80061; 83036; 85025

== ENCOUNTER → 2025-01-30 11:25 | Outpatient (REF) | payer BC, SELFPAY ==
[2025-01-30 12:28] LABS: INR 1.67; PT 20.0 Sec (11.4-14.6)
== END ==
LOC: REG 11:25
PROVIDERS: ATTENDING PHYSICIAN Internal Medicine Cardiovascular Disease; FAMILY PHYSICIAN Internal Medicine; REFERRING PHYSICIAN Dermatology Dermatopathology
DX: Z79.01 Long term (current) use of anticoagulants (principal); Q23.1 Congenital insufficiency of aortic valve; C44.612 Basal cell carcinoma of skin of right upper limb, including shoulder
CPT/HCPCS: 36415; 85610

== ENCOUNTER → 2025-03-09 06:39 | Outpatient (REF) | payer BC, SELFPAY ==
[2025-03-09 07:43] LABS: INR 2.22; PT 24.7 Sec (11.4-14.6)
== END ==
LOC: REG 06:39
PROVIDERS: ATTENDING PHYSICIAN Internal Medicine Cardiovascular Disease; FAMILY PHYSICIAN Internal Medicine
DX: Z79.4 Long term (current) use of insulin (principal); Z79.01 Long term (current) use of anticoagulants; Q23.1 Congenital insufficiency of aortic valve
CPT/HCPCS: 36415; 85610

== ENCOUNTER → 2025-03-16 08:39 | Outpatient (REF) | payer BC, SELFPAY ==
[2025-03-16 09:49] LABS: INR 2.58; PT 27.9 Sec (11.4-14.6)
== END ==
LOC: REG 08:39
PROVIDERS: ATTENDING PHYSICIAN Internal Medicine Cardiovascular Disease; FAMILY PHYSICIAN Internal Medicine
DX: Z94.4 Liver transplant status (principal); Z79.01 Long term (current) use of anticoagulants; Q23.1 Congenital insufficiency of aortic valve
CPT/HCPCS: 36415; 85610

== ENCOUNTER → 2025-03-27 06:58 | Outpatient (REF) | payer BC, SELFPAY ==
[2025-03-27 07:40] LABS: INR 1.83; PT 20.9 Sec (11.4-14.6)
== END ==
LOC: REG 06:58
PROVIDERS: ATTENDING PHYSICIAN Internal Medicine Cardiovascular Disease; FAMILY PHYSICIAN Internal Medicine
DX: Z79.4 Long term (current) use of insulin (principal); Z79.01 Long term (current) use of anticoagulants; Q23.1 Congenital insufficiency of aortic valve
CPT/HCPCS: 36415; 85610

== ENCOUNTER → 2025-04-11 10:48 | Outpatient (REF) | payer BC, SELFPAY ==
[2025-04-11 12:03] LABS: INR 2.27; PT 25.3 Sec (11.4-14.6)
== END ==
LOC: REG 10:48
PROVIDERS: ATTENDING PHYSICIAN Internal Medicine Cardiovascular Disease
DX: Z79.4 Long term (current) use of insulin (principal); Z79.01 Long term (current) use of anticoagulants; Q23.1 Congenital insufficiency of aortic valve
CPT/HCPCS: 36415; 85610